=== PATIENT | male | born 1955 | race African-American/Black ===

== ENCOUNTER 2018-01-30 11:39 | Inpatient (IN) | payer OTHER ==
[2018-01-30 15:20] VITALS: BMI 36.6
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
[2018-01-30] MEDS ORDERED: IBUPROFEN 400 MG TABLET (FP) PO PRN (16:18)
[2018-01-30] MEDS ORDERED: ACETAMINOPHEN 325 MG TABLET (FP) PO PRN (16:18)
[2018-01-30] MEDS ORDERED: P-EPHED 60MG/TRIPROLIDI 2.5MG TABLET PO PRN (16:18)
[2018-01-30] MEDS ORDERED: MAGNESIUM HYDROX 2400MG/30ML ORAL SUSPENSION 30 ML CUP PO PRN (16:18)
[2018-01-30] MEDS ORDERED: LOPERAMIDE HCL 2 MG CAPSULE PO PRN (16:18)
[2018-01-30] MEDS ORDERED: guaiFENesin/D-METHORPHAN HB 10 ML UNIT-DOSE CUPS PO PRN (16:18)
[2018-01-30] MEDS ORDERED: MAG HYDROX/AL HYDROX/SIMETH 30 ML UNIT-DOSE CUP PO PRN (16:18)
[2018-01-30] MEDS ORDERED: MENTHOL/PHENOL 1 EACH UD MM PRN (16:18)
[2018-01-30] MEDS ORDERED: NICOTINE POLACRILEX 2 MG GUM BC PRN (16:18)
[2018-01-30] MEDS ORDERED: MAGNESIUM CITRATE 300 ML BOTTLE PO PRN (16:18)
[2018-01-30] MEDS: chlordiazePOXIDE HCL 25 MG CAPSULE PO PRN (18:46)
[2018-01-30] MEDS: chlordiazePOXIDE HCL 25 MG CAPSULE PO SCH ×2 (18:54→23:02)
[2018-01-30 21:14] LABS: URINE APPEARANCE CLEAR; URINE BILIRUBIN NEGATIVE (NEGATIVE); URINE BLOOD NEGATIVE (NEGATIVE); URINE COLOR YELLOW; URINE GLUCOSE (UA) NEGATIVE (NEGATIVE); URINE KETONE NEGATIVE (NEGATIVE); URINE LEUK ESTERASE NEGATIVE (NEGATIVE); URINE NITRITE NEGATIVE (NEGATIVE); URINE PROTEIN NEGATIVE (NEGATIVE)
[2018-01-30] MEDS: THIAMINE HCL 100 MG TABLET (FP) PO SCH (23:04)
[2018-01-30] MEDS: MELATONIN 5 MG TABLETS PO SCH (23:05)
[2018-01-31] MEDS: chlordiazePOXIDE HCL 25 MG CAPSULE PO SCH ×4 (05:44→23:07)
[2018-01-31] MEDS ORDERED: METHADONE HCL 10 MG TABLET PO SCH (07:30)
[2018-01-31] MEDS ORDERED: METHADONE HCL 40 MG DISPERSABLE TABLET ONE (08:15)
[2018-01-31] MEDS ORDERED: METHADONE HCL 10 MG TABLET ONE (08:16)
[2018-01-31] MEDS: METHADONE 80 MG, METHADONE 10 MG PO SCH (08:19)
--- NOTE | 2018-01-31 08:52 | CONSULT ---
[facility] Psychiatric Consult - Data Date of interview: 01/31/18 Admission source: [facility] Identifying data: This is 62 years old male, , father of two, living with family, working of the [employer] by [employer], with a long history of Alcohol and Cocaine dependence is seeking admission to detox. Urine Drug Screen Results: THC- Marijuana, MADAN-Cocaine, OPI-Opiates, BAR-Barbiturates, MTD-Methadone. Patient reports no psychiatric hospitalization history Substance Abuse History: - Smoking Cessation. Smoking history: Current every day smoker. Have you smoked in the past 12 months: Yes. Aproximately how many cigarettes per day: 2. Hx Chewing Tobacco Use: Yes. Initiated information on smoking cessation: Yes. 'Breaking Loose' booklet given: 02/06/18. - Substance & Tx. History. Hx Alcohol Use: Yes. Hx Substance Use: Yes. Substance Use Type : Cocaine, Marijuana, Opiates. Hx Substance Use Treatment: Yes ([facility] 15 YEARS AGO). - Substances Abused. Alcohol. Route: Oral. Frequency: Daily. Amount used: VODKA - 5 PINTS, BEER - 6 (12 OZ. ). Age of first use: 19. Date of Last Use: 01/29/18. Cocaine. Route: Inhalation. Frequency: Daily. Amount used: 3 BAGS. Age of first use: 21. Date of Last Use: 01/29/18. Urine Drug Screen Results: THC-Marijuana, MADAN-Cocaine, OPI-Opiates, BAR- Barbiturates, MTD-Methadone Medical History: Patient reports history of HTN. hypercholesterolemia, seizures , BPH and Depression. He denies suicidal history. He is on methadone 80mg tablet daily at [facility]. Psychiatric History: Denies past psychiastric history Physical/Sexual Abuse/Trauma History: Denies Additional Comment: Urine Drug Screen Results: THC-Marijuana, MADAN-Cocaine, OPI- Opiates, BAR-Barbiturates, MTD-Methadone. Observation. Detox Unit Care Protocol Mental Status Exam - Mental Status Exam Alert and Oriented to: Time, Place, Person Cognitive Function: Fair Patient Appearance: Well Groomed Mood: Euthymic Affect: Mood Congruent Patient Behavior: Cooperative Speech Pattern: Appropriate, Artificially Ventilated Thought Process: Goal Oriented Thought Disorder: Being Controlled Hallucinations: Denies Suicidal Ideation: Denies Homicidal Ideation: Denies Insight/Judgement: Fair Sleep: Difficulty falling asleep Appetite: Weight gain Muscle strength/Tone: Normal Gait/Station: Normal Additional Comments: Observation. Detox Unit Care Protocol Psychiatric Findings - Problem List ([place] 1, 2,3) (1) Drug-induced mood disorder Current Visit: Yes Status: Suspected (2) Cannabis abuse Current Visit: Yes Status: Acute (3) Alcohol dependence with uncomplicated withdrawal Current Visit: Yes Status: Chronic (4) Cocaine dependence, uncomplicated Current Visit: Yes Status: Chronic (5) Methadone maintenance therapy patient Current Visit: Yes Status: Chronic (6) Nicotine dependence Current Visit: Yes Status: Chronic Qualifiers: Nicotine product type: cigarettes Substance use status: uncomplicated Qualified Code(s): F17.210 - Nicotine dependence, cigarettes, uncomplicated - Initial Treatment Plan Initial Treatment Plan: Observation. Detox Unit Care Protocol
[2018-01-31 10:08] LABS: HEMATOCRIT 36.4 % (35.4-49); HEMOGLOBIN 11.9 GM/dL (11.7-16.9); MCH 28.3 pg (25.7-33.7); MCHC 32.6 g/dl (32.0-35.9); MEAN CELL VOLUME 86.8 fl (80-96); MEAN PLT VOLUME 7.9 fl (7.5-11.1); PLATELET COUNT 207 K/MM3 (134-434); RBC 4.19 M/mm3 (4.00-5.60); RDW 14.2 % (11.9-15.9); WHITE BLOOD COUNT 3.8 K/mm3 (4.0-10.0)
[2018-01-31 10:29] LABS: CHLORIDE 102 mmol/L (98-107); POTASSIUM 3.8 mmol/L (3.5-5.1); SODIUM 141 mmol/L (136-145)
[2018-01-31 10:37] LABS: ALBUMIN 3.2 g/dl (3.4-5.0); ALK PHOS 109 U/L (45-117); ANION GAP 10 (8-16); BILIRUBIN,TOTAL 0.5 mg/dL (0.2-1.0); BLOOD UREA NITROGEN 17 mg/dL (7-18); CALCIUM 9.1 mg/dL (8.5-10.1); CO2 29 mmol/L (21-32); CREATININE 0.9 mg/dL (0.7-1.3); GLUCOSE,RANDOM 117 mg/dL (74-106); SGOT/AST 12 U/L (15-37); SGPT/ALT 19 U/L (12-78); TOT PROT 6.3 g/dl (6.4-8.2)
[2018-01-31] MEDS: PRENATAL VITAMINS W/ FOLIC ACID TABLET (FP) PO SCH (10:52)
[2018-01-31] MEDS: chlordiazePOXIDE HCL 25 MG CAPSULE PO PRN (10:52)
[2018-01-31] MEDS: NICOTINE 14 MG/24 HOURS TOPICAL PATCH TD SCH (10:53)
--- NOTE | 2018-01-31 10:59 | PN ---
S CIWA - CIWA Score Nausea/Vomitin Muscle Tremors: 3 Anxiety: 3 Agitation: 3 Paroxysmal Sweats: 1-Minimal Palms Moist Orientation: 0-Oriented Tacttile Disturbances: 1-Very Mild Itch/Numbness Auditory Disturbances: 1-Very Mild Visual Disturbances: 0-None Headache: 2-Mild CIWA-Ar Total Score: 17 BHS Progress Note (SOAP) Subjective: ALERT,IRRITABLE,ANXIOUS,INTERRUPTED SLEEP,TREMOR,PAIN IN THE BODY Objective: 01/31/18 10:56 Vital Signs Temperature 97.2 F L 01/31/18 10:00 Pulse Rate 80 01/31/18 10:00 Respiratory Rate 18 01/31/18 10:00 Blood Pressure 125/74 01/31/18 10:00 O2 Sat by Pulse Oximetry (%) EKG NSR,LVH PROLONG QT 402/430 01/31/18 10:57 NO CHEST PAIN,NO SOB,NO DIZZINESS Laboratory Last Values WBC 3.8 K/mm3 (4.0-10.0) L 01/31/18 07:30 RBC 4.19 M/mm3 (4.00-5.60) 01/31/18 07:30 Hgb 11.9 GM/dL (11.7-16.9) 01/31/18 07:30 Hct 36.4 % (35.4-49) 01/31/18 07:30 MCV 86.8 fl (80-96) 01/31/18 07:30 MCH 28.3 pg (25.7-33.7) 01/31/18 07:30 MCHC 32.6 g/dl (32.0-35.9) 01/31/18 07:30 RDW 14.2 % (11.9-15.9) 01/31/18 07:30 Plt Count 207 K/MM3 (134-434) 01/31/18 07:30 MPV 7.9 fl (7.5-11.1) 01/31/18 07:30 Sodium 141 mmol/L (136-145) 01/31/18 07:30 Potassium 3.8 mmol/L (3.5-5.1) 01/31/18 07:30 Chloride 102 mmol/L (98-107) 01/31/18 07:30 Carbon Dioxide 29 mmol/L (21-32) 01/31/18 07:30 Anion Gap 10 (8-16) 01/31/18 07:30 BUN 17 mg/dL (7-18) 01/31/18 07:30 Creatinine 0.9 mg/dL (0.7-1.3) 01/31/18 07:30 Creat Clearance w eGFR > 60 (>60) 01/31/18 07:30 Random Glucose 117 mg/dL (74-106) H 01/31/18 07:30 Calcium 9.1 mg/dL (8.5-10.1) 01/31/18 07:30 Total Bilirubin 0.5 mg/dL (0.2-1.0) 01/31/18 07:30 AST 12 U/L (15-37) L 01/31/18 07:30 ALT 19 U/L (12-78) 01/31/18 07:30 Alkaline Phosphatase 109 U/L (45-117) 01/31/18 07:30 Total Protein 6.3 g/dl (6.4-8.2) L 01/31/18 07:30 Albumin 3.2 g/dl (3.4-5.0) L 01/31/18 07:30 Urine Color Yellow 01/30/18 20:00 Urine Appearance Clear 01/30/18 20:00 Urine pH 5.0 (5.0-8.0) 01/30/18 20:00 Ur Specific [place] 1.026 (1.001-1.035) 01/30/18 20:00 Urine Protein Negative (NEGATIVE) 01/30/18 20:00 Urine Glucose (UA) Negative (NEGATIVE) 01/30/18 20:00 Urine Ketones Negative (NEGATIVE) 01/30/18 20:00 Urine Blood Negative (NEGATIVE) 01/30/18 20:00 Urine Nitrite Negative (NEGATIVE) 01/30/18 20:00 Urine Bilirubin Negative (NEGATIVE) 01/30/18 20:00 Urine Urobilinogen 2.0 mg/dL (0.2-1.0) 01/30/18 20:00 Ur Leukocyte Esterase Negative (NEGATIVE) 01/30/18 20:00 Assessment: 01/31/18 10:58 WITHDRAWAL SYMPTOM Plan: CONTINUE DETOX,FASTING GLUCOSE IN AM INITIAL GLUCOSE IS 117
--- NOTE | 2018-01-31 14:36 | EKG ---
Test Reason : Blood Pressure : / mmHG Vent. Rate : 069 BPM Atrial Rate : 069 BPM P-R Int : 200 ms QRS Dur : 118 ms QT Int : 402 ms P-R-T Axes : 056 -37 -11 degrees QTc Int : 430 ms NORMAL SINUS RHYTHM LEFT AXIS DEVIATION LEFT VENTRICULAR HYPERTROPHY WITH QRS WIDENING ABNORMAL ECG WHEN COMPARED WITH ECG OF 30-JAN-2018 17:54, QT HAS SHORTENED Confirmed by TIM RIVERO, TIMI ([id number]) on 01/31/2018 2:35:34 PM Referred By: Confirmed By:TIMI DUMONT MD
[2018-01-31] MEDS: THIAMINE HCL 100 MG TABLET (FP) PO SCH (23:07)
[2018-01-31] MEDS: MELATONIN 5 MG TABLETS PO SCH ×2 (23:29→23:50)
[2018-02-01] MEDS ORDERED: METHADONE HCL 10 MG TABLET ONE (04:46)
[2018-02-01] MEDS ORDERED: METHADONE HCL 40 MG DISPERSABLE TABLET ONE (04:46)
[2018-02-01] MEDS: METHADONE 80 MG, METHADONE 10 MG PO SCH (06:12)
[2018-02-01] MEDS: chlordiazePOXIDE HCL 25 MG CAPSULE PO SCH ×2 (06:12→11:12)
--- NOTE | 2018-02-01 10:47 | PN ---
S CIWA - CIWA Score Nausea/Vomitin Muscle Tremors: 3 Anxiety: 3 Agitation: 3 Paroxysmal Sweats: 1-Minimal Palms Moist Orientation: 0-Oriented Tacttile Disturbances: 1-Very Mild Itch/Numbness Auditory Disturbances: 1-Very Mild Visual Disturbances: 0-None Headache: 2-Mild CIWA-Ar Total Score: 17 BHS Progress Note (SOAP) Subjective: ALERT,IRRITABLE,ANXIOUS,INTERRUPTED SLEEP,TREMOR Objective: 02/01/18 10:45 Vital Signs Temperature 98.2 F 02/01/18 09:27 Pulse Rate 74 02/01/18 09:27 Respiratory Rate 19 02/01/18 09:27 Blood Pressure 148/87 02/01/18 09:27 O2 Sat by Pulse Oximetry (%) 02/01/18 10:46 FASTING GLUCOSE 112 Assessment: 02/01/18 10:47 WITHDRAWAL SYMPTOM Plan: CONTINUE DETOX,BGM DAILY
[2018-02-01] MEDS: NICOTINE 14 MG/24 HOURS TOPICAL PATCH TD SCH (11:12)
[2018-02-01] MEDS: PRENATAL VITAMINS W/ FOLIC ACID TABLET (FP) PO SCH (11:12)
[2018-02-01] MEDS: chlordiazePOXIDE 5 MG CAPSULE PO SCH ×2 (18:03→22:28)
[2018-02-01] MEDS: THIAMINE HCL 100 MG TABLET (FP) PO SCH (22:28)
[2018-02-01] MEDS: MELATONIN 5 MG TABLETS PO SCH (22:28)
[2018-02-02] MEDS ORDERED: METHADONE HCL 40 MG DISPERSABLE TABLET ONE (03:25)
[2018-02-02] MEDS ORDERED: METHADONE HCL 10 MG TABLET ONE (03:25)
[2018-02-02] MEDS: METHADONE 80 MG, METHADONE 10 MG PO SCH (05:44)
[2018-02-02] MEDS: chlordiazePOXIDE 5 MG CAPSULE PO SCH ×2 (05:44→11:12)
[2018-02-02] MEDS: NICOTINE 14 MG/24 HOURS TOPICAL PATCH TD SCH (11:12)
[2018-02-02] MEDS: PRENATAL VITAMINS W/ FOLIC ACID TABLET (FP) PO SCH (11:12)
[2018-02-02] MEDS: chlordiazePOXIDE HCL 10 MG CAPSULE PO SCH ×2 (18:05→22:28)
--- NOTE | 2018-02-02 20:44 | PN ---
BHS Progress Note (SOAP) Subjective: Shakes sweats Objective: 02/02/18 20:43 A & O x 3 Vital Signs Temperature 97.5 F L 02/02/18 17:33 Pulse Rate 77 02/02/18 17:33 Respiratory Rate 20 02/02/18 17:33 Blood Pressure 109/68 02/02/18 17:33 O2 Sat by Pulse Oximetry (%) Assessment: 02/02/18 20:44 withdrawal sx Plan: continue detox
[2018-02-02] MEDS: THIAMINE HCL 100 MG TABLET (FP) PO SCH (22:28)
[2018-02-02] MEDS: MELATONIN 5 MG TABLETS PO SCH (22:30)
[2018-02-03] MEDS ORDERED: METHADONE HCL 40 MG DISPERSABLE TABLET ONE (04:23)
[2018-02-03] MEDS ORDERED: METHADONE HCL 10 MG TABLET ONE (04:24)
[2018-02-03] MEDS: chlordiazePOXIDE HCL 10 MG CAPSULE PO SCH (05:56)
[2018-02-03] MEDS: METHADONE 80 MG, METHADONE 10 MG PO SCH (05:56)
[2018-02-03 06:01] VITALS: BP 112/80; PULSE 73; TEMP 97.2
--- NOTE | 2018-02-03 09:19 | DS ---
[facility] Detox Discharge Summary Admission Date: 01/30/18 Discharge Date: 02/03/18 - History Present History: Alcohol Dependence Additional Comments: 62 years old male admitted for alcohol detox patient completed detox regimen tolerated well denies pain denies withdrawal sx wants to go to [facility] as aftercare - Physical Exam Results Vital Signs: Vital Signs Temperature 97.2 F L 02/03/18 06:00 Pulse Rate 73 02/03/18 06:00 Respiratory Rate 20 02/03/18 06:00 Blood Pressure 112/80 02/03/18 06:00 O2 Sat by Pulse Oximetry (%) Pertinent Admission Physical Exam Findings: withdrawal sx Vital Signs Temperature 97.2 F L 02/03/18 06:00 Pulse Rate 73 02/03/18 06:00 Respiratory Rate 20 02/03/18 06:00 Blood Pressure 112/80 02/03/18 06:00 O2 Sat by Pulse Oximetry (%) Laboratory Last Values WBC 3.8 K/mm3 (4.0-10.0) L 01/31/18 07:30 RBC 4.19 M/mm3 (4.00-5.60) 01/31/18 07:30 Hgb 11.9 GM/dL (11.7-16.9) 01/31/18 07:30 Hct 36.4 % (35.4-49) 01/31/18 07:30 MCV 86.8 fl (80-96) 01/31/18 07:30 MCH 28.3 pg (25.7-33.7) 01/31/18 07:30 MCHC 32.6 g/dl (32.0-35.9) 01/31/18 07:30 RDW 14.2 % (11.9-15.9) 01/31/18 07:30 Plt Count 207 K/MM3 (134-434) 01/31/18 07:30 MPV 7.9 fl (7.5-11.1) 01/31/18 07:30 Sodium 141 mmol/L (136-145) 01/31/18 07:30 Potassium 3.8 mmol/L (3.5-5.1) 01/31/18 07:30 Chloride 102 mmol/L (98-107) 01/31/18 07:30 Carbon Dioxide 29 mmol/L (21-32) 01/31/18 07:30 Anion Gap 10 (8-16) 01/31/18 07:30 BUN 17 mg/dL (7-18) 01/31/18 07:30 Creatinine 0.9 mg/dL (0.7-1.3) 01/31/18 07:30 Creat Clearance w eGFR > 60 (>60) 01/31/18 07:30 POC Glucometer 115 UNITS (80-120) 02/03/18 05:55 Random Glucose 117 mg/dL (74-106) H 01/31/18 07:30 Fasting Glucose 112 mg/dL (70-105) H 02/01/18 07:00 Calcium 9.1 mg/dL (8.5-10.1) 01/31/18 07:30 Total Bilirubin 0.5 mg/dL (0.2-1.0) 01/31/18 07:30 AST 12 U/L (15-37) L 01/31/18 07:30 ALT 19 U/L (12-78) 01/31/18 07:30 Alkaline Phosphatase 109 U/L (45-117) 01/31/18 07:30 Total Protein 6.3 g/dl (6.4-8.2) L 01/31/18 07:30 Albumin 3.2 g/dl (3.4-5.0) L 01/31/18 07:30 Urine Color Yellow 01/30/18 20:00 Urine Appearance Clear 01/30/18 20:00 Urine pH 5.0 (5.0-8.0) 01/30/18 20:00 Ur Specific [place] 1.026 (1.001-1.035) 01/30/18 20:00 Urine Protein Negative (NEGATIVE) 01/30/18 20:00 Urine Glucose (UA) Negative (NEGATIVE) 01/30/18 20:00 Urine Ketones Negative (NEGATIVE) 01/30/18 20:00 Urine Blood Negative (NEGATIVE) 01/30/18 20:00 Urine Nitrite Negative (NEGATIVE) 01/30/18 20:00 Urine Bilirubin Negative (NEGATIVE) 01/30/18 20:00 Urine Urobilinogen 2.0 mg/dL (0.2-1.0) 01/30/18 20:00 Ur Leukocyte Esterase Negative (NEGATIVE) 01/30/18 20:00 RPR Titer Nonreactive (NONREACTIVE) 01/31/18 07:30 lab noted - Treatment Hospital Course: Detox Protocol Followed, Detoxed Safely, Responded well, Discharged Condition Good, Rehab Referral Accepted Patient has Accepted a Rehab Referral to: [facility] - Medication Discharge Medications: Ambulatory Orders Methadone [Dolophine -] 90 mg PO DAILY 02/03/18 - Diagnosis (1) Alcohol dependence with uncomplicated withdrawal Current Visit: Yes Status: Acute (2) Methadone maintenance therapy patient Current Visit: Yes Status: Chronic (3) Nicotine dependence Current Visit: Yes Status: Acute Qualifiers: Nicotine product type: cigarettes Substance use status: in withdrawal Qualified Code(s): F17.213 - Nicotine dependence, cigarettes, with withdrawal - AMA Did Patient Leave Against Medical Advice: No
== END 2018-02-03 08:40 | disposition home or self-care (01) | DRG 773 ==
LOC: YASAS 11:39 → Y6N 16:28
PROVIDERS: ADMIT Internal Medicine; ATTEND Internal Medicine
PROC: HZ2ZZZZ Detoxification Services for Substance Abuse Treatment (ICD-10-PCS; principal; 2018-01-30)
DX: F11.20 Opioid dependence, uncomplicated (principal); F10.230 Alcohol dependence with withdrawal, uncomplicated; F14.20 Cocaine dependence, uncomplicated; F12.10 Cannabis abuse, uncomplicated; F17.213 Nicotine dependence, cigarettes, with withdrawal; F32.9 Major depressive disorder, single episode, unspecified; F19.24 Other psychoactive substance dependence with psychoactive substance-induced mood disorder; I10 Essential (primary) hypertension; E78.00 Pure hypercholesterolemia, unspecified; N40.0 Benign prostatic hyperplasia without lower urinary tract symptoms; Z86.69 Personal history of other diseases of the nervous system and sense organs
CPT/HCPCS: 36415; 80053; 81003; 82947; 82962; 85027; 86593; 93005; 93010

== ENCOUNTER 2018-03-16 08:16 | Inpatient (IN) | payer OTHER ==
[2018-03-16 09:24] VITALS: BMI 36.3
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
[2018-03-16] MEDS ORDERED: P-EPHED 60MG/TRIPROLIDI 2.5MG TABLET PO PRN (10:04)
[2018-03-16] MEDS ORDERED: MENTHOL/PHENOL 1 EACH UD MM PRN (10:04)
[2018-03-16] MEDS ORDERED: IBUPROFEN 400 MG TABLET (FP) PO PRN (10:04)
[2018-03-16] MEDS ORDERED: chlordiazePOXIDE HCL 25 MG CAPSULE PO PRN (10:04)
[2018-03-16] MEDS ORDERED: guaiFENesin/D-METHORPHAN HB 10 ML UNIT-DOSE CUPS PO PRN (10:04)
[2018-03-16] MEDS ORDERED: MAGNESIUM CITRATE 300 ML BOTTLE PO PRN (10:04)
[2018-03-16] MEDS ORDERED: ACETAMINOPHEN 325 MG TABLET (FP) PO PRN (10:04)
[2018-03-16] MEDS ORDERED: LOPERAMIDE HCL 2 MG CAPSULE PO PRN (10:04)
[2018-03-16] MEDS ORDERED: MAGNESIUM HYDROX 2400MG/30ML ORAL SUSPENSION 30 ML CUP PO PRN (10:04)
[2018-03-16] MEDS ORDERED: MAG HYDROX/AL HYDROX/SIMETH 30 ML UNIT-DOSE CUP PO PRN (10:04)
[2018-03-16] MEDS ORDERED: hydrOXYzine PAMOATE 50 MG CAPSULE (FP) PO PRN (10:04)
[2018-03-16] MEDS ORDERED: chlordiazePOXIDE HCL 25 MG CAPSULE PO ONE (11:00)
[2018-03-16] MEDS: chlordiazePOXIDE HCL 25 MG CAPSULE PO SCH ×2 (18:16→22:11)
[2018-03-16] MEDS ORDERED: MELATONIN 5 MG TABLETS PO PRN (22:00)
[2018-03-16] MEDS: THIAMINE HCL 100 MG TABLET (FP) PO SCH (22:13)
[2018-03-16 22:32] LABS: URINE APPEARANCE TURBID; URINE BILIRUBIN NEGATIVE (<2.0 mg/dL); URINE COLOR YELLOW; URINE GLUCOSE (UA) NEGATIVE (NEGATIVE); URINE KETONE NEGATIVE (NEGATIVE); URINE LEUK ESTERASE NEGATIVE (NEGATIVE); URINE NITRITE NEGATIVE (NEGATIVE); URINE PROTEIN NEGATIVE (NEGATIVE)
[2018-03-17] MEDS ORDERED: METHADONE HCL 40 MG DISPERSABLE TABLET ONE (05:41)
[2018-03-17] MEDS ORDERED: METHADONE HCL 10 MG TABLET ONE (05:41)
[2018-03-17] MEDS ORDERED: METHADONE 40 MG, METHADONE 20 MG PO ONE (06:00)
[2018-03-17] MEDS: chlordiazePOXIDE HCL 25 MG CAPSULE PO SCH ×4 (06:11→22:11)
[2018-03-17 09:56] LABS: ALBUMIN 3.5 g/dl (3.4-5.0); ANION GAP 5 (8-16); BLOOD UREA NITROGEN 19 mg/dL (7-18); CALCIUM 8.6 mg/dL (8.5-10.1); CHLORIDE 104 mmol/L (98-107); CO2 31 mmol/L (21-32); GLUCOSE,RANDOM 83 mg/dL (74-106); POTASSIUM 4.2 mmol/L (3.5-5.1); SGOT/AST 15 U/L (15-37); SGPT/ALT 19 U/L (12-78); SODIUM 140 mmol/L (136-145)
[2018-03-17 09:58] LABS: ALK PHOS 113 U/L (45-117); BILIRUBIN,TOTAL 0.2 mg/dL (0.2-1.0); CREATININE 0.9 mg/dL (0.7-1.3); TOT PROT 6.8 g/dl (6.4-8.2)
[2018-03-17] MEDS ORDERED: METHADONE HCL 40 MG DISPERSABLE TABLET PO ONE ×2 (10:00)
[2018-03-17 10:03] LABS: HEMATOCRIT 38.7 % (35.4-49); HEMOGLOBIN 12.7 GM/dL (11.7-16.9); MCHC 32.8 g/dl (32.0-35.9); MEAN CELL VOLUME 85.3 fl (80-96); MEAN PLT VOLUME 7.9 fl (7.5-11.1); PLATELET COUNT 244 K/MM3 (134-434); RBC 4.54 M/mm3 (4.00-5.60); RDW 14.3 % (11.9-15.9); WHITE BLOOD COUNT 4.2 K/mm3 (4.0-10.0)
[2018-03-17] MEDS: PRENATAL VITAMINS W/ FOLIC ACID TABLET (FP) PO SCH (10:34)
--- NOTE | 2018-03-17 11:27 | PN ---
S CIWA - CIWA Score Nausea/Vomitin-No Nausea/No Vomiting Muscle Tremors: 4-Moderate,w/Arms Extend Anxiety: 4-Mod. Anxious/Guarded Agitation: 4-Moderately Restless Paroxysmal Sweats: No Perspiration Orientation: 0-Oriented Tacttile Disturbances: 0-None Auditory Disturbances: 0-None Visual Disturbances: 0-None Headache: 0-None Present CIWA-Ar Total Score: 12 BHS Progress Note (SOAP) Subjective: ANXIETY,INTERMITTENT SLEEP Objective: 03/17/18 11:26 Vital Signs Temperature 98.8 F 03/17/18 09:20 Pulse Rate 60 03/17/18 09:20 Respiratory Rate 18 03/17/18 09:20 Blood Pressure 150/78 03/17/18 09:20 O2 Sat by Pulse Oximetry (%) Laboratory Tests 03/16/18 03/17/18 03/17/18 22:00 07:15 07:15 WBC 4.2 RBC 4.54 Hgb 12.7 Hct 38.7 MCV 85.3 MCH 28.0 MCHC 32.8 RDW 14.3 Plt Count 244 MPV 7.9 Sodium 140 Potassium 4.2 Chloride 104 Carbon Dioxide 31 Anion Gap 5 L BUN 19 H Creatinine 0.9 Creat Clearance w eGFR > 60 Random Glucose 83 D Calcium 8.6 Total Bilirubin 0.2 D AST 15 D ALT 19 Alkaline Phosphatase 113 Total Protein 6.8 Albumin 3.5 Urine Color Yellow Urine Appearance Turbid Urine pH 5.0 Ur Specific [place] 1.025 Urine Protein Negative Urine Glucose (UA) Negative Urine Ketones Negative Urine Blood Negative Urine Nitrite Negative Urine Bilirubin Negative Urine Urobilinogen 2.0 Ur Leukocyte Esterase Negative RPR Titer 03/17/18 07:15 WBC RBC Hgb Hct MCV MCH MCHC RDW Plt Count MPV Sodium Potassium Chloride Carbon Dioxide Anion Gap BUN Creatinine Creat Clearance w eGFR Random Glucose Calcium Total Bilirubin AST ALT Alkaline Phosphatase Total Protein Albumin Urine Color Urine Appearance Urine pH Ur Specific [place] Urine Protein Urine Glucose (UA) Urine Ketones Urine Blood Urine Nitrite Urine Bilirubin Urine Urobilinogen Ur Leukocyte Esterase RPR Titer Nonreactive Assessment: 03/17/18 11:26 WITHDRAWAL SX Plan: CONTINUE DETOX PROTOCOL
--- NOTE | 2018-03-17 14:35 | EKG ---
Test Reason : Blood Pressure : / mmHG Vent. Rate : 073 BPM Atrial Rate : 073 BPM P-R Int : 194 ms QRS Dur : 116 ms QT Int : 446 ms P-R-T Axes : 061 -29 009 degrees QTc Int : 491 ms NORMAL SINUS RHYTHM PROLONGED QT ABNORMAL ECG WHEN COMPARED WITH ECG OF 31-JAN-2018 08:46, QT HAS LENGTHENED Confirmed by MD Memo, Grant ([id number]) on 03/17/2018 2:35:37 PM Referred By: Rafat Hernandez Confirmed By:Grant Hampton MD
[2018-03-17] MEDS: THIAMINE HCL 100 MG TABLET (FP) PO SCH (22:12)
[2018-03-18] MEDS: chlordiazePOXIDE HCL 25 MG CAPSULE PO SCH ×2 (06:54→10:29)
[2018-03-18] MEDS ORDERED: METHADONE 40 MG, METHADONE 20 MG PO SCH (07:00)
[2018-03-18] MEDS ORDERED: METHADONE HCL 10 MG TABLET ONE (07:39)
[2018-03-18] MEDS ORDERED: METHADONE HCL 40 MG DISPERSABLE TABLET ONE (07:40)
[2018-03-18] MEDS: PRENATAL VITAMINS W/ FOLIC ACID TABLET (FP) PO SCH (10:29)
[2018-03-18 13:16] VITALS: BP 104/70; PULSE 75; TEMP 96.3
--- NOTE | 2018-03-18 13:46 | PN ---
BHS Progress Note (SOAP) Subjective: Requesting to leave States "i am fine" Objective: 03/18/18 13:54 A & O x 3 Anxious Irritable Vital Signs Temperature 96.3 F L 03/18/18 13:15 Pulse Rate 75 03/18/18 13:15 Respiratory Rate 18 03/18/18 13:15 Blood Pressure 104/70 03/18/18 13:15 O2 Sat by Pulse Oximetry (%) Assessment: 03/18/18 13:58 Withdrawal sx Anxiety Plan: Continue detox
--- NOTE | 2018-03-18 14:05 | DS ---
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 VSS, A & O x 3, gait steady Will sign out against medical advice. Educated to call 911 or come back if adverse sx Pertinent Past History: BPH HTN Hx of seizures - Physical Exam Results Vital Signs: Vital Signs Temperature 96.3 F L 03/18/18 13:15 Pulse Rate 75 03/18/18 13:15 Respiratory Rate 18 03/18/18 13:15 Blood Pressure 104/70 03/18/18 13:15 O2 Sat by Pulse Oximetry (%) Pertinent Admission Physical Exam Findings: withdrawal sx - Medication Discharge Medications: Ambulatory Orders Methadone [Dolophine -] 60 mg PO DAILY 02/03/18 - Diagnosis (1) Sedative, hypnotic or anxiolytic dependence, uncomplicated Status: Acute (2) Alcohol dependence with uncomplicated withdrawal Status: Acute (3) Cannabis abuse Status: Chronic (4) Cocaine dependence, uncomplicated Status: Chronic (5) Nicotine dependence Status: Acute Qualifiers: Nicotine product type: cigarettes Substance use status: in withdrawal Qualified Code(s): F17.213 - Nicotine dependence, cigarettes, with withdrawal (6) BPH (benign prostatic hyperplasia) Status: Chronic Qualifiers: Lower urinary tract symptom detail: unspecified (7) HTN (hypertension) Status: Chronic Qualifiers: Hypertension type: essential hypertension Qualified Code(s): I10 - Essential (primary) hypertension (8) Hypercholesteremia Status: Chronic (9) Methadone maintenance therapy patient Status: Chronic (10) Obesity (BMI 30-39.9) Status: Chronic (11) Drug-induced mood disorder Status: Suspected (12) History of seizure Status: Suspected - AMA Did Patient Leave Against Medical Advice: Yes
[2018-03-18] MEDS ORDERED: chlordiazePOXIDE 5 MG CAPSULE PO SCH (17:00)
[2018-03-19] MEDS ORDERED: METHADONE HCL 10 MG TABLET PO SCH (06:00)
[2018-03-19] MEDS ORDERED: chlordiazePOXIDE HCL 10 MG CAPSULE PO SCH (17:00)
== END 2018-03-18 13:41 | disposition left against medical advice (07) | DRG 770 ==
LOC: YASAS 08:16 → Y3N 10:41
PROVIDERS: ADMIT Internal Medicine; ATTEND Internal Medicine
PROC: HZ2ZZZZ Detoxification Services for Substance Abuse Treatment (ICD-10-PCS; principal; 2018-03-16)
DX: F11.20 Opioid dependence, uncomplicated (principal); F13.230 Sedative, hypnotic or anxiolytic dependence with withdrawal, uncomplicated; F10.230 Alcohol dependence with withdrawal, uncomplicated; F14.20 Cocaine dependence, uncomplicated; F17.213 Nicotine dependence, cigarettes, with withdrawal; F19.24 Other psychoactive substance dependence with psychoactive substance-induced mood disorder; I10 Essential (primary) hypertension; E78.00 Pure hypercholesterolemia, unspecified; N40.0 Benign prostatic hyperplasia without lower urinary tract symptoms; E66.9 Obesity, unspecified; Z68.36 Body mass index [BMI] 36.0-36.9, adult; Z86.69 Personal history of other diseases of the nervous system and sense organs
CPT/HCPCS: 36415; 80053; 81003; 85027; 86593; 93005; 93010

== ENCOUNTER 2018-04-13 11:18 | Inpatient (IN) | payer OTHER ==
[2018-04-13 16:48] VITALS: BMI 35.2
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
[2018-04-13] MEDS ORDERED: MAGNESIUM HYDROX 2400MG/30ML ORAL SUSPENSION 30 ML CUP PO PRN (18:11)
[2018-04-13] MEDS ORDERED: hydrOXYzine PAMOATE 50 MG CAPSULE (FP) PO PRN (18:11)
[2018-04-13] MEDS ORDERED: NICOTINE POLACRILEX 2 MG GUM BC PRN (18:11)
[2018-04-13] MEDS ORDERED: MENTHOL/PHENOL 1 EACH UD MM PRN (18:11)
[2018-04-13] MEDS ORDERED: LOPERAMIDE HCL 2 MG CAPSULE PO PRN (18:11)
[2018-04-13] MEDS ORDERED: MAGNESIUM CITRATE 300 ML BOTTLE PO PRN (18:11)
[2018-04-13] MEDS ORDERED: IBUPROFEN 400 MG TABLET (FP) PO PRN (18:11)
[2018-04-13] MEDS ORDERED: P-EPHED 60MG/TRIPROLIDI 2.5MG TABLET PO PRN (18:11)
[2018-04-13] MEDS ORDERED: chlordiazePOXIDE HCL 25 MG CAPSULE PO PRN (18:11)
[2018-04-13] MEDS ORDERED: guaiFENesin/D-METHORPHAN HB 10 ML UNIT-DOSE CUPS PO PRN (18:11)
[2018-04-13] MEDS ORDERED: ACETAMINOPHEN 325 MG TABLET (FP) PO PRN (18:11)
[2018-04-13] MEDS ORDERED: MAG HYDROX/AL HYDROX/SIMETH 30 ML UNIT-DOSE CUP PO PRN (18:11)
[2018-04-13] MEDS ORDERED: chlordiazePOXIDE HCL 25 MG CAPSULE PO ONE (19:00)
[2018-04-13] MEDS ORDERED: MELATONIN 5 MG TABLETS PO PRN (22:00)
[2018-04-13] MEDS: THIAMINE HCL 100 MG TABLET (FP) PO SCH ×2 (22:09→22:10)
[2018-04-13] MEDS: chlordiazePOXIDE HCL 25 MG CAPSULE PO SCH (22:09)
[2018-04-14] MEDS ORDERED: METHADONE HCL 10 MG TABLET PO ONE (06:00)
[2018-04-14] MEDS: chlordiazePOXIDE HCL 25 MG CAPSULE PO SCH ×4 (07:27→22:06)
[2018-04-14] MEDS: PRENATAL VITAMINS W/ FOLIC ACID TABLET (FP) PO SCH (10:02)
[2018-04-14] MEDS: NICOTINE 14 MG/24 HOURS TOPICAL PATCH TD SCH (10:02)
[2018-04-14 10:59] LABS: HEMATOCRIT 36.6 % (35.4-49); HEMOGLOBIN 11.8 GM/dL (11.7-16.9); MCH 27.6 pg (25.7-33.7); MCHC 32.3 g/dl (32.0-35.9); MEAN CELL VOLUME 85.4 fl (80-96); MEAN PLT VOLUME 8.1 fl (7.5-11.1); PLATELET COUNT 195 K/MM3 (134-434); RBC 4.29 M/mm3 (4.00-5.60); RDW 14.9 % (11.9-15.9); WHITE BLOOD COUNT 3.5 K/mm3 (4.0-10.0)
[2018-04-14 11:05] LABS: URINE APPEARANCE TURBID; URINE BILIRUBIN NEGATIVE (<2.0 mg/dL); URINE BLOOD NEGATIVE (NEGATIVE); URINE COLOR YELLOW; URINE GLUCOSE (UA) NEGATIVE (NEGATIVE); URINE KETONE NEGATIVE (NEGATIVE); URINE LEUK ESTERASE NEGATIVE (NEGATIVE); URINE NITRITE NEGATIVE (NEGATIVE); URINE PROTEIN NEGATIVE (NEGATIVE); URINE UROBILINOGEN NEGATIVE mg/dL (0.2-1.0)
[2018-04-14 11:05] LABS: CALCIUM 8.4 mg/dL (8.5-10.1); CHLORIDE 103 mmol/L (98-107); POTASSIUM 3.8 mmol/L (3.5-5.1); SODIUM 142 mmol/L (136-145)
[2018-04-14 11:13] LABS: ALBUMIN 3.4 g/dl (3.4-5.0); ALK PHOS 103 U/L (45-117); ANION GAP 6 (8-16); BILIRUBIN,TOTAL 0.3 mg/dL (0.2-1.0); BLOOD UREA NITROGEN 18 mg/dL (7-18); CO2 33 mmol/L (21-32); GLUCOSE,RANDOM 96 mg/dL (74-106); SGOT/AST 12 U/L (15-37); SGPT/ALT 20 U/L (12-78); TOT PROT 6.4 g/dl (6.4-8.2)
--- NOTE | 2018-04-14 13:05 | PN ---
S CIWA - CIWA Score Nausea/Vomitin-Mild Nausea/No Vomiting Muscle Tremors: 4-Moderate,w/Arms Extend Anxiety: 3 Agitation: 3 Paroxysmal Sweats: 1-Minimal Palms Moist Orientation: 0-Oriented Tacttile Disturbances: 0-None Auditory Disturbances: 0-None Visual Disturbances: 0-None Headache: 0-None Present CIWA-Ar Total Score: 12 BHS Progress Note (SOAP) Subjective: sweat tremor mild gi distress slept most of the night Objective: 04/14/18 13:02 Vital Signs Temperature 97.9 F 04/14/18 09:15 Pulse Rate 74 04/14/18 09:15 Respiratory Rate 16 04/14/18 09:15 Blood Pressure 111/62 04/14/18 09:15 O2 Sat by Pulse Oximetry (%) Laboratory Last Values WBC 3.5 K/mm3 (4.0-10.0) L 04/14/18 07:40 RBC 4.29 M/mm3 (4.00-5.60) 04/14/18 07:40 Hgb 11.8 GM/dL (11.7-16.9) 04/14/18 07:40 Hct 36.6 % (35.4-49) 04/14/18 07:40 MCV 85.4 fl (80-96) 04/14/18 07:40 MCH 27.6 pg (25.7-33.7) 04/14/18 07:40 MCHC 32.3 g/dl (32.0-35.9) 04/14/18 07:40 RDW 14.9 % (11.9-15.9) 04/14/18 07:40 Plt Count 195 K/MM3 (134-434) D 04/14/18 07:40 MPV 8.1 fl (7.5-11.1) 04/14/18 07:40 Sodium 142 mmol/L (136-145) 04/14/18 07:40 Potassium 3.8 mmol/L (3.5-5.1) 04/14/18 07:40 Chloride 103 mmol/L (98-107) 04/14/18 07:40 Carbon Dioxide 33 mmol/L (21-32) H 04/14/18 07:40 Anion Gap 6 (8-16) L 04/14/18 07:40 BUN 18 mg/dL (7-18) 04/14/18 07:40 Creatinine 1.0 mg/dL (0.7-1.3) 04/14/18 07:40 Creat Clearance w eGFR > 60 (>60) 04/14/18 07:40 Random Glucose 96 mg/dL (74-106) 04/14/18 07:40 Calcium 8.4 mg/dL (8.5-10.1) L 04/14/18 07:40 Total Bilirubin 0.3 mg/dL (0.2-1.0) D 04/14/18 07:40 AST 12 U/L (15-37) L 04/14/18 07:40 ALT 20 U/L (12-78) 04/14/18 07:40 Alkaline Phosphatase 103 U/L (45-117) 04/14/18 07:40 Total Protein 6.4 g/dl (6.4-8.2) 04/14/18 07:40 Albumin 3.4 g/dl (3.4-5.0) 04/14/18 07:40 Urine Color Yellow 04/14/18 08:15 Urine Appearance Turbid 04/14/18 08:15 Urine pH 5.0 (5.0-8.0) 04/14/18 08:15 Ur Specific [place] 1.029 (1.001-1.035) 04/14/18 08:15 Urine Protein Negative (NEGATIVE) 04/14/18 08:15 Urine Glucose (UA) Negative (NEGATIVE) 04/14/18 08:15 Urine Ketones Negative (NEGATIVE) 04/14/18 08:15 Urine Blood Negative (NEGATIVE) 04/14/18 08:15 Urine Nitrite Negative (NEGATIVE) 04/14/18 08:15 Urine Bilirubin Negative (<2.0 mg/dL) 04/14/18 08:15 Urine Urobilinogen Negative mg/dL (0.2-1.0) 04/14/18 08:15 Ur Leukocyte Esterase Negative (NEGATIVE) 04/14/18 08:15 RPR Titer Nonreactive (NONREACTIVE) 04/14/18 07:40 lab noted Assessment: 04/14/18 13:03 withdrawal sx Plan: continue detox
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
[2018-04-14] MEDS: THIAMINE HCL 100 MG TABLET (FP) PO SCH (22:06)
--- NOTE | 2018-04-14 22:41 | EKG ---
Test Reason : Blood Pressure : / mmHG Vent. Rate : 076 BPM Atrial Rate : 076 BPM P-R Int : 162 ms QRS Dur : 108 ms QT Int : 430 ms P-R-T Axes : 060 -20 025 degrees QTc Int : 483 ms NORMAL SINUS RHYTHM PROLONGED QT ABNORMAL ECG WHEN COMPARED WITH ECG OF 16-MAR-2018 11:39, NO SIGNIFICANT CHANGE WAS FOUND Confirmed by SD HINOJOSA MD ([id number]) on 04/14/2018 10:41:48 PM Referred By: Confirmed By:SD HINOJOSA MD
[2018-04-15] MEDS: chlordiazePOXIDE HCL 25 MG CAPSULE PO SCH ×3 (07:58→17:54)
[2018-04-15] MEDS ORDERED: METHADONE HCL 40 MG DISPERSABLE TABLET ONE (08:58)
[2018-04-15] MEDS ORDERED: METHADONE HCL 10 MG TABLET ONE (08:58)
[2018-04-15] MEDS ORDERED: METHADONE 40 MG, METHADONE 20 MG PO ONE (10:00)
[2018-04-15] MEDS ORDERED: METHADONE HCL 40 MG DISPERSABLE TABLET PO ONE (10:00)
--- NOTE | 2018-04-15 11:08 | PN ---
S CIWA - CIWA Score Nausea/Vomitin-Mild Nausea/No Vomiting Muscle Tremors: 4-Moderate,w/Arms Extend Anxiety: 3 Agitation: 2 Paroxysmal Sweats: 1-Minimal Palms Moist Orientation: 0-Oriented Tacttile Disturbances: 0-None Auditory Disturbances: 0-None Visual Disturbances: 0-None Headache: 0-None Present CIWA-Ar Total Score: 11 BHS Progress Note (SOAP) Subjective: sweat tremor anxiety restlessness lack of interest to discuss aftercare Objective: 04/15/18 11:09 Vital Signs Temperature 99.1 F 04/15/18 09:43 Pulse Rate 68 04/15/18 09:43 Respiratory Rate 16 04/15/18 09:43 Blood Pressure 113/75 04/15/18 09:43 O2 Sat by Pulse Oximetry (%) Laboratory Last Values WBC 3.5 K/mm3 (4.0-10.0) L 04/14/18 07:40 RBC 4.29 M/mm3 (4.00-5.60) 04/14/18 07:40 Hgb 11.8 GM/dL (11.7-16.9) 04/14/18 07:40 Hct 36.6 % (35.4-49) 04/14/18 07:40 MCV 85.4 fl (80-96) 04/14/18 07:40 MCH 27.6 pg (25.7-33.7) 04/14/18 07:40 MCHC 32.3 g/dl (32.0-35.9) 04/14/18 07:40 RDW 14.9 % (11.9-15.9) 04/14/18 07:40 Plt Count 195 K/MM3 (134-434) D 04/14/18 07:40 MPV 8.1 fl (7.5-11.1) 04/14/18 07:40 Sodium 142 mmol/L (136-145) 04/14/18 07:40 Potassium 3.8 mmol/L (3.5-5.1) 04/14/18 07:40 Chloride 103 mmol/L (98-107) 04/14/18 07:40 Carbon Dioxide 33 mmol/L (21-32) H 04/14/18 07:40 Anion Gap 6 (8-16) L 04/14/18 07:40 BUN 18 mg/dL (7-18) 04/14/18 07:40 Creatinine 1.0 mg/dL (0.7-1.3) 04/14/18 07:40 Creat Clearance w eGFR > 60 (>60) 04/14/18 07:40 Random Glucose 96 mg/dL (74-106) 04/14/18 07:40 Calcium 8.4 mg/dL (8.5-10.1) L 04/14/18 07:40 Total Bilirubin 0.3 mg/dL (0.2-1.0) D 04/14/18 07:40 AST 12 U/L (15-37) L 04/14/18 07:40 ALT 20 U/L (12-78) 04/14/18 07:40 Alkaline Phosphatase 103 U/L (45-117) 04/14/18 07:40 Total Protein 6.4 g/dl (6.4-8.2) 04/14/18 07:40 Albumin 3.4 g/dl (3.4-5.0) 04/14/18 07:40 Urine Color Yellow 04/14/18 08:15 Urine Appearance Turbid 04/14/18 08:15 Urine pH 5.0 (5.0-8.0) 04/14/18 08:15 Ur Specific [place] 1.029 (1.001-1.035) 04/14/18 08:15 Urine Protein Negative (NEGATIVE) 04/14/18 08:15 Urine Glucose (UA) Negative (NEGATIVE) 04/14/18 08:15 Urine Ketones Negative (NEGATIVE) 04/14/18 08:15 Urine Blood Negative (NEGATIVE) 04/14/18 08:15 Urine Nitrite Negative (NEGATIVE) 04/14/18 08:15 Urine Bilirubin Negative (<2.0 mg/dL) 04/14/18 08:15 Urine Urobilinogen Negative mg/dL (0.2-1.0) 04/14/18 08:15 Ur Leukocyte Esterase Negative (NEGATIVE) 04/14/18 08:15 RPR Titer Nonreactive (NONREACTIVE) 04/14/18 07:40 lab noted Assessment: 04/15/18 11:10 alcohol withdrawal sx Plan: continue detox
[2018-04-15] MEDS: NICOTINE 14 MG/24 HOURS TOPICAL PATCH TD SCH (11:16)
[2018-04-15] MEDS: PRENATAL VITAMINS W/ FOLIC ACID TABLET (FP) PO SCH (11:16)
[2018-04-15] MEDS: chlordiazePOXIDE 5 MG CAPSULE PO SCH (22:25)
[2018-04-15] MEDS: THIAMINE HCL 100 MG TABLET (FP) PO SCH (22:27)
[2018-04-16] MEDS ORDERED: METHADONE HCL 40 MG DISPERSABLE TABLET ONE (05:01)
[2018-04-16] MEDS ORDERED: METHADONE HCL 10 MG TABLET ONE (05:02)
[2018-04-16] MEDS ORDERED: METHADONE HCL 10 MG TABLET PO SCH (06:00)
[2018-04-16] MEDS ORDERED: METHADONE 40 MG, METHADONE 20 MG PO SCH (06:00)
[2018-04-16] MEDS: chlordiazePOXIDE 5 MG CAPSULE PO SCH ×2 (06:46→10:22)
[2018-04-16] MEDS: NICOTINE 14 MG/24 HOURS TOPICAL PATCH TD SCH (10:22)
[2018-04-16] MEDS: PRENATAL VITAMINS W/ FOLIC ACID TABLET (FP) PO SCH (10:24)
--- NOTE | 2018-04-16 12:02 | PN ---
BHS Progress Note (SOAP) Subjective: feeling better no tremor less sweat social with peers in day room discuss aftercare Objective: 04/16/18 12:01 Vital Signs Temperature 97.7 F 04/16/18 09:12 Pulse Rate 75 04/16/18 09:12 Respiratory Rate 18 04/16/18 09:12 Blood Pressure 113/54 04/16/18 09:12 O2 Sat by Pulse Oximetry (%) Laboratory Last Values WBC 3.5 K/mm3 (4.0-10.0) L 04/14/18 07:40 RBC 4.29 M/mm3 (4.00-5.60) 04/14/18 07:40 Hgb 11.8 GM/dL (11.7-16.9) 04/14/18 07:40 Hct 36.6 % (35.4-49) 04/14/18 07:40 MCV 85.4 fl (80-96) 04/14/18 07:40 MCH 27.6 pg (25.7-33.7) 04/14/18 07:40 MCHC 32.3 g/dl (32.0-35.9) 04/14/18 07:40 RDW 14.9 % (11.9-15.9) 04/14/18 07:40 Plt Count 195 K/MM3 (134-434) D 04/14/18 07:40 MPV 8.1 fl (7.5-11.1) 04/14/18 07:40 Sodium 142 mmol/L (136-145) 04/14/18 07:40 Potassium 3.8 mmol/L (3.5-5.1) 04/14/18 07:40 Chloride 103 mmol/L (98-107) 04/14/18 07:40 Carbon Dioxide 33 mmol/L (21-32) H 04/14/18 07:40 Anion Gap 6 (8-16) L 04/14/18 07:40 BUN 18 mg/dL (7-18) 04/14/18 07:40 Creatinine 1.0 mg/dL (0.7-1.3) 04/14/18 07:40 Creat Clearance w eGFR > 60 (>60) 04/14/18 07:40 Random Glucose 96 mg/dL (74-106) 04/14/18 07:40 Calcium 8.4 mg/dL (8.5-10.1) L 04/14/18 07:40 Total Bilirubin 0.3 mg/dL (0.2-1.0) D 04/14/18 07:40 AST 12 U/L (15-37) L 04/14/18 07:40 ALT 20 U/L (12-78) 04/14/18 07:40 Alkaline Phosphatase 103 U/L (45-117) 04/14/18 07:40 Total Protein 6.4 g/dl (6.4-8.2) 04/14/18 07:40 Albumin 3.4 g/dl (3.4-5.0) 04/14/18 07:40 Urine Color Yellow 04/14/18 08:15 Urine Appearance Turbid 04/14/18 08:15 Urine pH 5.0 (5.0-8.0) 04/14/18 08:15 Ur Specific [place] 1.029 (1.001-1.035) 04/14/18 08:15 Urine Protein Negative (NEGATIVE) 04/14/18 08:15 Urine Glucose (UA) Negative (NEGATIVE) 04/14/18 08:15 Urine Ketones Negative (NEGATIVE) 04/14/18 08:15 Urine Blood Negative (NEGATIVE) 04/14/18 08:15 Urine Nitrite Negative (NEGATIVE) 04/14/18 08:15 Urine Bilirubin Negative (<2.0 mg/dL) 04/14/18 08:15 Urine Urobilinogen Negative mg/dL (0.2-1.0) 04/14/18 08:15 Ur Leukocyte Esterase Negative (NEGATIVE) 04/14/18 08:15 RPR Titer Nonreactive (NONREACTIVE) 04/14/18 07:40 lab noted Assessment: 04/16/18 12:01 mild withdrawal sx Plan: medically supervised detox
[2018-04-16 14:08] VITALS: BP 116/69; PULSE 76; TEMP 98.2
--- NOTE | 2018-04-16 14:55 | DS ---
[facility] Detox Discharge Summary Admission Date: 04/13/18 Discharge Date: 04/16/18 - History Present History: Alcohol Dependence Additional Comments: 62 YEARS OLD MALE ADMITTED 04/13/18 FOR ALCOHOL WITHDRAWAL SX REPORTED FREE OF ALCOHOL WITHDRAWAL SX AND WANTS TO RETURN HOME TODAY ALERT ORIENTED X 3 NO ACUTE DISTRESS AFTERCARE ARRANGED PER COUNSELOR PATIENT AGREES TO RETURN TO [facility] FOR MEDICAL AND MENTAL TREATMENT - Physical Exam Results Vital Signs: Vital Signs Temperature 98.2 F 04/16/18 14:07 Pulse Rate 76 04/16/18 14:07 Respiratory Rate 18 04/16/18 14:07 Blood Pressure 116/69 04/16/18 14:07 O2 Sat by Pulse Oximetry (%) Pertinent Admission Physical Exam Findings: ALCOHOL WITHDRAWAL SX Vital Signs Temperature 98.2 F 04/16/18 14:07 Pulse Rate 76 04/16/18 14:07 Respiratory Rate 18 04/16/18 14:07 Blood Pressure 116/69 04/16/18 14:07 O2 Sat by Pulse Oximetry (%) Laboratory Last Values WBC 3.5 K/mm3 (4.0-10.0) L 04/14/18 07:40 RBC 4.29 M/mm3 (4.00-5.60) 04/14/18 07:40 Hgb 11.8 GM/dL (11.7-16.9) 04/14/18 07:40 Hct 36.6 % (35.4-49) 04/14/18 07:40 MCV 85.4 fl (80-96) 04/14/18 07:40 MCH 27.6 pg (25.7-33.7) 04/14/18 07:40 MCHC 32.3 g/dl (32.0-35.9) 04/14/18 07:40 RDW 14.9 % (11.9-15.9) 04/14/18 07:40 Plt Count 195 K/MM3 (134-434) D 04/14/18 07:40 MPV 8.1 fl (7.5-11.1) 04/14/18 07:40 Sodium 142 mmol/L (136-145) 04/14/18 07:40 Potassium 3.8 mmol/L (3.5-5.1) 04/14/18 07:40 Chloride 103 mmol/L (98-107) 04/14/18 07:40 Carbon Dioxide 33 mmol/L (21-32) H 04/14/18 07:40 Anion Gap 6 (8-16) L 04/14/18 07:40 BUN 18 mg/dL (7-18) 04/14/18 07:40 Creatinine 1.0 mg/dL (0.7-1.3) 04/14/18 07:40 Creat Clearance w eGFR > 60 (>60) 04/14/18 07:40 Random Glucose 96 mg/dL (74-106) 04/14/18 07:40 Calcium 8.4 mg/dL (8.5-10.1) L 04/14/18 07:40 Total Bilirubin 0.3 mg/dL (0.2-1.0) D 04/14/18 07:40 AST 12 U/L (15-37) L 04/14/18 07:40 ALT 20 U/L (12-78) 04/14/18 07:40 Alkaline Phosphatase 103 U/L (45-117) 04/14/18 07:40 Total Protein 6.4 g/dl (6.4-8.2) 04/14/18 07:40 Albumin 3.4 g/dl (3.4-5.0) 04/14/18 07:40 Urine Color Yellow 04/14/18 08:15 Urine Appearance Turbid 04/14/18 08:15 Urine pH 5.0 (5.0-8.0) 04/14/18 08:15 Ur Specific [place] 1.029 (1.001-1.035) 04/14/18 08:15 Urine Protein Negative (NEGATIVE) 04/14/18 08:15 Urine Glucose (UA) Negative (NEGATIVE) 04/14/18 08:15 Urine Ketones Negative (NEGATIVE) 04/14/18 08:15 Urine Blood Negative (NEGATIVE) 04/14/18 08:15 Urine Nitrite Negative (NEGATIVE) 04/14/18 08:15 Urine Bilirubin Negative (<2.0 mg/dL) 04/14/18 08:15 Urine Urobilinogen Negative mg/dL (0.2-1.0) 04/14/18 08:15 Ur Leukocyte Esterase Negative (NEGATIVE) 04/14/18 08:15 RPR Titer Nonreactive (NONREACTIVE) 04/14/18 07:40 LAB NOTED - Treatment Hospital Course: Detox Protocol Followed, Detoxed Safely, Responded well, Discharged Condition Good, Rehab Referral Accepted Patient has Accepted a Rehab Referral to: PER COUNSELOR ARRANGED - Medication Discharge Medications: Ambulatory Orders Methadone [Dolophine -] 60 mg PO DAILY 02/03/18 Oxycodone HCl/Acetaminophen [Oxycodone-Acetaminophen 10-325] 1 each PO BID 04/16 - Diagnosis (1) Alcohol dependence with uncomplicated withdrawal Current Visit: Yes Status: Acute (2) HTN (hypertension) Current Visit: Yes Status: Chronic Qualifiers: Hypertension type: essential hypertension Qualified Code(s): I10 - Essential (primary) hypertension (3) Hypercholesteremia Current Visit: Yes Status: Chronic (4) Methadone maintenance therapy patient Current Visit: Yes Status: Chronic (5) Nicotine dependence Current Visit: Yes Status: Acute Qualifiers: Nicotine product type: cigarettes Substance use status: in withdrawal Qualified Code(s): F17.213 - Nicotine dependence, cigarettes, with withdrawal (6) Pain management Current Visit: Yes Status: Chronic - AMA Did Patient Leave Against Medical Advice: No
[2018-04-16] MEDS ORDERED: chlordiazePOXIDE HCL 10 MG CAPSULE PO SCH (23:00)
== END 2018-04-16 15:10 | disposition home or self-care (01) | DRG 773 ==
LOC: YASAS 11:18 → Y6N 18:57
PROVIDERS: ADMIT Surgery; ATTEND Surgery
PROC: HZ2ZZZZ Detoxification Services for Substance Abuse Treatment (ICD-10-PCS; principal; 2018-04-13)
DX: F10.230 Alcohol dependence with withdrawal, uncomplicated (principal); F11.20 Opioid dependence, uncomplicated; F14.20 Cocaine dependence, uncomplicated; F17.213 Nicotine dependence, cigarettes, with withdrawal; N40.0 Benign prostatic hyperplasia without lower urinary tract symptoms; E66.9 Obesity, unspecified; Z68.35 Body mass index [BMI] 35.0-35.9, adult; Z86.69 Personal history of other diseases of the nervous system and sense organs
CPT/HCPCS: 36415; 80053; 81003; 85027; 86593; 93005; 93010

== ENCOUNTER 2018-07-01 10:34 | Inpatient (IN) | payer OTHER ==
[2018-07-01 10:59] VITALS: BMI 36.1
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
[2018-07-01] MEDS ORDERED: MENTHOL/PHENOL 1 EACH UD MM PRN (17:47)
[2018-07-01] MEDS ORDERED: LOPERAMIDE HCL 2 MG CAPSULE PO PRN (17:47)
[2018-07-01] MEDS ORDERED: NICOTINE POLACRILEX 2 MG GUM BC PRN (17:47)
[2018-07-01] MEDS ORDERED: MAGNESIUM HYDROX 2400MG/30ML ORAL SUSPENSION 30 ML CUP PO PRN (17:47)
[2018-07-01] MEDS ORDERED: ACETAMINOPHEN 325 MG TABLET (FP) PO PRN (17:47)
[2018-07-01] MEDS ORDERED: IBUPROFEN 400 MG TABLET (FP) PO PRN (17:47)
[2018-07-01] MEDS ORDERED: MAGNESIUM CITRATE 300 ML BOTTLE PO PRN (17:47)
[2018-07-01] MEDS ORDERED: guaiFENesin/D-METHORPHAN HB 10 ML UNIT-DOSE CUPS PO PRN (17:47)
[2018-07-01] MEDS ORDERED: MAG HYDROX/AL HYDROX/SIMETH 30 ML UNIT-DOSE CUP PO PRN (17:47)
[2018-07-01] MEDS ORDERED: P-EPHED 60MG/TRIPROLIDI 2.5MG TABLET PO PRN (17:47)
[2018-07-01] MEDS ORDERED: hydrOXYzine PAMOATE 50 MG CAPSULE (FP) PO PRN (17:47)
[2018-07-01] MEDS ORDERED: diazePAM 5 MG TABLET PO ONE (18:15)
[2018-07-01] MEDS ORDERED: MELATONIN 5 MG TABLETS PO PRN (22:00)
[2018-07-01] MEDS: diazePAM 5 MG TABLET PO SCH (22:15)
[2018-07-01] MEDS: THIAMINE HCL 100 MG TABLET (FP) PO SCH (22:16)
[2018-07-02 01:03] LABS: URINE APPEARANCE CLEAR; URINE BILIRUBIN NEGATIVE (<2.0 mg/dL); URINE COLOR YELLOW; URINE GLUCOSE (UA) NEGATIVE (NEGATIVE); URINE KETONE NEGATIVE (NEGATIVE); URINE LEUK ESTERASE NEGATIVE (NEGATIVE); URINE NITRITE NEGATIVE (NEGATIVE); URINE PROTEIN NEGATIVE (NEGATIVE); URINE UROBILINOGEN NEGATIVE mg/dL (0.2-1.0)
[2018-07-02] MEDS: diazePAM 5 MG TABLET PO SCH ×3 (07:00→23:05)
[2018-07-02 10:23] LABS: HEMATOCRIT 36.8 % (35.4-49); HEMOGLOBIN 12.2 GM/dL (11.7-16.9); MCH 28.5 pg (25.7-33.7); MCHC 33.2 g/dl (32.0-35.9); PLATELET COUNT 242 K/MM3 (134-434); RBC 4.28 M/mm3 (4.00-5.60); RDW 14.9 % (11.9-15.9); WHITE BLOOD COUNT 4.2 K/mm3 (4.0-10.0)
[2018-07-02] MEDS: PRENATAL VITAMINS W/ FOLIC ACID TABLET (FP) PO SCH (10:31)
[2018-07-02] MEDS: NICOTINE 14 MG/24 HOURS TOPICAL PATCH TD SCH (10:32)
[2018-07-02] MEDS ORDERED: METHADONE HCL 10 MG TABLET PO SCH (10:45)
[2018-07-02] MEDS ORDERED: LIDOCAINE VISCOUS 2% ORAL/TOP 20 ML UNIT-DOSE CUP MM PRN (10:45)
[2018-07-02] MEDS ORDERED: METHADONE HCL 10 MG TABLET ONE (10:55)
[2018-07-02] MEDS ORDERED: METHADONE HCL 40 MG DISPERSABLE TABLET ONE (10:56)
[2018-07-02] MEDS: METHADONE 40 MG, METHADONE 20 MG PO SCH (10:57)
[2018-07-02] MEDS: diazePAM 5 MG TABLET PO PRN (11:00)
[2018-07-02 11:34] LABS: ALBUMIN 3.6 g/dl (3.4-5.0); ANION GAP 5 (8-16); BILIRUBIN,TOTAL 0.1 mg/dL (0.2-1.0); BLOOD UREA NITROGEN 16 mg/dL (7-18); CHLORIDE 102 mmol/L (98-107); CO2 32 mmol/L (21-32); CREATININE 1.1 mg/dL (0.7-1.3); GLUCOSE,RANDOM 111 mg/dL (74-106); POTASSIUM 4.3 mmol/L (3.5-5.1); SGOT/AST 13 U/L (15-37); SGPT/ALT 23 U/L (12-78); SODIUM 139 mmol/L (136-145); TOT PROT 6.9 g/dl (6.4-8.2)
[2018-07-02 11:35] LABS: ALK PHOS 111 U/L (45-117)
--- NOTE | 2018-07-02 13:17 | EKG ---
Test Reason : Blood Pressure : / mmHG Vent. Rate : 084 BPM Atrial Rate : 084 BPM P-R Int : 240 ms QRS Dur : 108 ms QT Int : 402 ms P-R-T Axes : 020 -26 032 degrees QTc Int : 475 ms SINUS RHYTHM WITH 1ST DEGREE A-V BLOCK OTHERWISE NORMAL ECG WHEN COMPARED WITH ECG OF 13-APR-2018 19:13, [place] INTERVAL HAS INCREASED Confirmed by Lawrence Carter MD ([id number]) on 07/02/2018 1:16:25 PM Referred By: Confirmed By:Lawrence Carter MD
[2018-07-02] MEDS ORDERED: amLODIPine BESYLATE 5 MG TABLET (FP) PO ONE (15:12)
--- NOTE | 2018-07-02 15:13 | PN ---
[facility] CIWA - CIWA Score Nausea/Vomitin-No Nausea/No Vomiting Muscle Tremors: None Anxiety: 4-Mod. Anxious/Guarded Agitation: 4-Moderately Restless Paroxysmal Sweats: 2 Orientation: 0-Oriented Tacttile Disturbances: 2-Mild Itch/Numbness/Burn Auditory Disturbances: 1-Very Mild Visual Disturbances: 2-Mild Sensitivity Headache: 0-None Present CIWA-Ar Total Score: 15 S Progress Note (SOAP) Subjective: Anxious, Sweating, Body Aches, Constipation. Objective: PATIENT A & O X 3, OBSERVED AMBULATING ON UNIT. NO ACUTE DISTRESS. PATIENT DENIES CHEST PAIN. 07/02/18 15:10 Vital Signs Temperature 100.3 F H 07/02/18 13:32 Pulse Rate 89 07/02/18 13:32 Respiratory Rate 18 07/02/18 13:32 Blood Pressure 136/94 07/02/18 13:32 O2 Sat by Pulse Oximetry (%) Laboratory Tests 07/01/18 07/02/18 07/02/18 23:25 06:00 06:00 WBC 4.2 RBC 4.28 Hgb 12.2 Hct 36.8 MCV 86.0 MCH 28.5 MCHC 33.2 RDW 14.9 Plt Count 242 D MPV 9.0 D Sodium 139 Potassium 4.3 Chloride 102 Carbon Dioxide 32 Anion Gap 5 L BUN 16 Creatinine 1.1 Creat Clearance w eGFR > 60 Random Glucose 111 H Calcium 9.0 Total Bilirubin 0.1 L AST 13 L ALT 23 Alkaline Phosphatase 111 Total Protein 6.9 Albumin 3.6 Urine Color Yellow Urine Appearance Clear Urine pH 6.0 Ur Specific [place] 1.024 Urine Protein Negative Urine Glucose (UA) Negative Urine Ketones Negative Urine Blood Negative Urine Nitrite Negative Urine Bilirubin Negative Urine Urobilinogen Negative Ur Leukocyte Esterase Negative RPR Titer 07/02/18 06:00 WBC RBC Hgb Hct MCV MCH MCHC RDW Plt Count MPV Sodium Potassium Chloride Carbon Dioxide Anion Gap BUN Creatinine Creat Clearance w eGFR Random Glucose Calcium Total Bilirubin AST ALT Alkaline Phosphatase Total Protein Albumin Urine Color Urine Appearance Urine pH Ur Specific [place] Urine Protein Urine Glucose (UA) Urine Ketones Urine Blood Urine Nitrite Urine Bilirubin Urine Urobilinogen Ur Leukocyte Esterase RPR Titer Nonreactive LABS NOTED. Assessment: 07/02/18 15:12 WITHDRAWAL SYMPTOMS. HYPERTENSION. Plan: CONTINUE DETOX. AMLODIPINE, 5 MG PO DAILY FOR ELEVATED BP (PATIENT DENIES HISTORY OF TREATMENT FOR HTN). COLACE, SENNA FOR CONSTIPATION.
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
[2018-07-02] MEDS ORDERED: SENNOSIDES/DOCUSATE COMBO (SENNA PLUS) TABLET (UD) PO SCH (22:00)
[2018-07-02] MEDS: THIAMINE HCL 100 MG TABLET (FP) PO SCH (23:05)
[2018-07-03] MEDS: diazePAM 5 MG TABLET PO PRN ×2 (01:56→06:48)
[2018-07-03] MEDS ORDERED: METHADONE HCL 10 MG TABLET ONE (04:12)
[2018-07-03] MEDS ORDERED: METHADONE HCL 40 MG DISPERSABLE TABLET ONE (04:13)
[2018-07-03] MEDS: METHADONE 40 MG, METHADONE 20 MG PO SCH (06:44)
[2018-07-03] MEDS ORDERED: amLODIPine BESYLATE 5 MG TABLET (FP) PO SCH (10:00)
[2018-07-03] MEDS ORDERED: diazePAM 5 MG TABLET PO SCH (10:00)
[2018-07-03] MEDS: PRENATAL VITAMINS W/ FOLIC ACID TABLET (FP) PO SCH (10:12)
[2018-07-03] MEDS: NICOTINE 14 MG/24 HOURS TOPICAL PATCH TD SCH (10:12)
--- NOTE | 2018-07-03 13:22 | PN ---
S CIWA - CIWA Score Nausea/Vomitin-No Nausea/No Vomiting Muscle Tremors: None Anxiety: 3 Agitation: 3 Paroxysmal Sweats: 3 Orientation: 0-Oriented Tacttile Disturbances: 2-Mild Itch/Numbness/Burn Auditory Disturbances: 0-None Visual Disturbances: 2-Mild Sensitivity Headache: 0-None Present CIWA-Ar Total Score: 13 BHS Progress Note (SOAP) Subjective: Sweating, Anxious, Body Aches. Objective: PATIENT A & O X 3, OBSERVED AMBULATING ON UNIT. NO ACUTE DISTRESS. 07/03/18 13:22 Vital Signs Temperature 97.3 F L 07/03/18 10:02 Pulse Rate 84 07/03/18 10:02 Respiratory Rate 20 07/03/18 10:02 Blood Pressure 126/88 07/03/18 10:02 O2 Sat by Pulse Oximetry (%) Laboratory Tests 07/01/18 07/02/18 07/02/18 23:25 06:00 06:00 WBC 4.2 RBC 4.28 Hgb 12.2 Hct 36.8 MCV 86.0 MCH 28.5 MCHC 33.2 RDW 14.9 Plt Count 242 D MPV 9.0 D Sodium 139 Potassium 4.3 Chloride 102 Carbon Dioxide 32 Anion Gap 5 L BUN 16 Creatinine 1.1 Creat Clearance w eGFR > 60 Random Glucose 111 H Calcium 9.0 Total Bilirubin 0.1 L AST 13 L ALT 23 Alkaline Phosphatase 111 Total Protein 6.9 Albumin 3.6 Urine Color Yellow Urine Appearance Clear Urine pH 6.0 Ur Specific [place] 1.024 Urine Protein Negative Urine Glucose (UA) Negative Urine Ketones Negative Urine Blood Negative Urine Nitrite Negative Urine Bilirubin Negative Urine Urobilinogen Negative Ur Leukocyte Esterase Negative RPR Titer 07/02/18 06:00 WBC RBC Hgb Hct MCV MCH MCHC RDW Plt Count MPV Sodium Potassium Chloride Carbon Dioxide Anion Gap BUN Creatinine Creat Clearance w eGFR Random Glucose Calcium Total Bilirubin AST ALT Alkaline Phosphatase Total Protein Albumin Urine Color Urine Appearance Urine pH Ur Specific [place] Urine Protein Urine Glucose (UA) Urine Ketones Urine Blood Urine Nitrite Urine Bilirubin Urine Urobilinogen Ur Leukocyte Esterase RPR Titer Nonreactive LABS NOTED. Assessment: 07/03/18 13:22 WITHDRAWAL SYMPTOMS. Plan: CONTINUE DETOX.
[2018-07-03 14:16] VITALS: BP 112/80; PULSE 79; TEMP 97
--- NOTE | 2018-07-03 15:48 | DS ---
[facility] Detox Discharge Summary Admission Date: 07/01/18 Discharge Date: 07/03/18 - History Present History: Alcohol Dependence, Cannabis Dependence, Cocaine Dependence, Opioid Dependence Additional Comments: PATIENT DOES NOT WISH TO REMAIN TO COMPLETE DETOX REGIMEN. RISKS OF LEAVING DETOX UNIT AGAINST MEDICAL ADVICE AND PRIOR TO COMPLETION OF DETOX REGIMEN EXPLAINED TO PATIENT. PATIENT ADVISED TO GO IMMEDIATELY TO NEAREST ER SHOULD ANY INTOLERABLE DETOX SYMPTOMS DEVELOP AT ANY TIME. PATIENT LEFT DETOX UNIT IN STABLE MEDICAL CONDITION. Pertinent Past History: Hypercholesterolemia, Nicotine Dependence, History of BPH, HTN, MMTP, Borderline DM. - Physical Exam Results Vital Signs: Vital Signs Temperature 97.0 F L 07/03/18 14:15 Pulse Rate 79 07/03/18 14:15 Respiratory Rate 19 07/03/18 14:15 Blood Pressure 112/80 07/03/18 14:15 O2 Sat by Pulse Oximetry (%) Pertinent Admission Physical Exam Findings: WITHDRAWAL SYMPTOMS. Laboratory Tests 07/01/18 07/02/18 07/02/18 23:25 06:00 06:00 WBC 4.2 RBC 4.28 Hgb 12.2 Hct 36.8 MCV 86.0 MCH 28.5 MCHC 33.2 RDW 14.9 Plt Count 242 D MPV 9.0 D Sodium 139 Potassium 4.3 Chloride 102 Carbon Dioxide 32 Anion Gap 5 L BUN 16 Creatinine 1.1 Creat Clearance w eGFR > 60 Random Glucose 111 H Calcium 9.0 Total Bilirubin 0.1 L AST 13 L ALT 23 Alkaline Phosphatase 111 Total Protein 6.9 Albumin 3.6 Urine Color Yellow Urine Appearance Clear Urine pH 6.0 Ur Specific [place] 1.024 Urine Protein Negative Urine Glucose (UA) Negative Urine Ketones Negative Urine Blood Negative Urine Nitrite Negative Urine Bilirubin Negative Urine Urobilinogen Negative Ur Leukocyte Esterase Negative RPR Titer 07/02/18 06:00 WBC RBC Hgb Hct MCV MCH MCHC RDW Plt Count MPV Sodium Potassium Chloride Carbon Dioxide Anion Gap BUN Creatinine Creat Clearance w eGFR Random Glucose Calcium Total Bilirubin AST ALT Alkaline Phosphatase Total Protein Albumin Urine Color Urine Appearance Urine pH Ur Specific [place] Urine Protein Urine Glucose (UA) Urine Ketones Urine Blood Urine Nitrite Urine Bilirubin Urine Urobilinogen Ur Leukocyte Esterase RPR Titer Nonreactive LABS NOTED. - Treatment Hospital Course: Detoxed Safely - Medication Discharge Medications: Ambulatory Orders NK [No Known Home Medication] 07/01/18 - Diagnosis (1) Alcohol dependence with uncomplicated withdrawal Current Visit: Yes Status: Acute (2) Cocaine dependence, uncomplicated Current Visit: Yes Status: Acute (3) BPH (benign prostatic hyperplasia) Current Visit: Yes Status: Chronic Qualifiers: Lower urinary tract symptom presence: unspecified whether lower urinary tract symptoms present Qualified Code(s): N40.0 - Benign prostatic hyperplasia without lower urinary tract symptoms (4) HTN (hypertension) Current Visit: Yes Status: Chronic Qualifiers: Hypertension type: essential hypertension Qualified Code(s): I10 - Essential (primary) hypertension (5) Obesity (BMI 30-39.9) Current Visit: Yes Status: Chronic (6) Opioid dependence on agonist therapy Current Visit: Yes Status: Chronic (7) Nicotine dependence Current Visit: Yes Status: Acute Qualifiers: Nicotine product type: cigarettes Substance use status: in withdrawal Qualified Code(s): F17.213 - Nicotine dependence, cigarettes, with withdrawal (8) Cannabis abuse Current Visit: Yes Status: Chronic (9) Hypercholesteremia Current Visit: Yes Status: Chronic (10) Methadone maintenance therapy patient Current Visit: Yes Status: Chronic - AMA Did Patient Leave Against Medical Advice: Yes (PATIENT DID NOT WISH TO REMAIN TO COMPLETE DETOX REGIMEN.)
[2018-07-05] MEDS ORDERED: diazePAM 5 MG TABLET PO SCH (10:00)
== END 2018-07-03 16:00 | disposition left against medical advice (07) | DRG 770 ==
LOC: YASAS 10:34 → Y3N 13:53
PROVIDERS: ADMIT Surgery; ATTEND Surgery
PROC: HZ2ZZZZ Detoxification Services for Substance Abuse Treatment (ICD-10-PCS; principal; 2018-07-01)
DX: F10.230 Alcohol dependence with withdrawal, uncomplicated (principal); F11.20 Opioid dependence, uncomplicated; F14.20 Cocaine dependence, uncomplicated; F12.10 Cannabis abuse, uncomplicated; F17.213 Nicotine dependence, cigarettes, with withdrawal; I10 Essential (primary) hypertension; N40.0 Benign prostatic hyperplasia without lower urinary tract symptoms; E78.5 Hyperlipidemia, unspecified; R73.03 Prediabetes; E66.9 Obesity, unspecified; Z68.36 Body mass index [BMI] 36.0-36.9, adult
CPT/HCPCS: 36415; 80053; 81003; 82962; 85027; 86593; 93005; 93010

== ENCOUNTER 2018-08-16 10:09 | Inpatient (IN) | payer OTHER ==
[2018-08-16 10:47] VITALS: BMI 34.9
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
[2018-08-16] MEDS ORDERED: MAG HYDROX/AL HYDROX/SIMETH 30 ML UNIT-DOSE CUP PO PRN (11:36)
[2018-08-16] MEDS ORDERED: LOPERAMIDE HCL 2 MG CAPSULE PO PRN (11:36)
[2018-08-16] MEDS ORDERED: ACETAMINOPHEN 325 MG TABLET (FP) PO PRN (11:36)
[2018-08-16] MEDS ORDERED: MAGNESIUM HYDROX 2400MG/30ML ORAL SUSPENSION 30 ML CUP PO PRN (11:36)
[2018-08-16] MEDS ORDERED: IBUPROFEN 400 MG TABLET (FP) PO PRN (11:36)
[2018-08-16] MEDS ORDERED: MENTHOL/PHENOL 1 EACH UD MM PRN (11:36)
[2018-08-16] MEDS ORDERED: MAGNESIUM CITRATE 300 ML BOTTLE PO PRN (11:36)
[2018-08-16] MEDS ORDERED: P-EPHED 60MG/TRIPROLIDI 2.5MG TABLET PO PRN (11:36)
[2018-08-16] MEDS: chlordiazePOXIDE HCL 25 MG CAPSULE PO PRN (12:45)
[2018-08-16] MEDS: chlordiazePOXIDE HCL 25 MG CAPSULE PO SCH ×2 (18:31→22:22)
[2018-08-16] MEDS: guaiFENesin/D-METHORPHAN HB 10 ML UNIT-DOSE CUPS PO PRN (18:56)
[2018-08-16] MEDS ORDERED: MELATONIN 5 MG TABLETS PO PRN (22:00)
[2018-08-16] MEDS: THIAMINE HCL 100 MG TABLET (FP) PO SCH (22:22)
[2018-08-17] MEDS: guaiFENesin/D-METHORPHAN HB 10 ML UNIT-DOSE CUPS PO PRN (02:38)
[2018-08-17] MEDS: chlordiazePOXIDE HCL 25 MG CAPSULE PO PRN ×2 (02:47→07:55)
[2018-08-17] MEDS ORDERED: METHADONE HCL 10 MG TABLET ONE ×2 (04:25→07:52)
[2018-08-17] MEDS ORDERED: METHADONE HCL 40 MG DISPERSABLE TABLET ONE ×2 (04:25→07:52)
[2018-08-17] MEDS ORDERED: METHADONE HCL 10 MG TABLET PO SCH (06:00)
[2018-08-17] MEDS: chlordiazePOXIDE HCL 25 MG CAPSULE PO SCH ×4 (06:58→23:01)
[2018-08-17] MEDS: METHADONE 40 MG, METHADONE 20 MG PO SCH ×2 (06:58→07:54)
[2018-08-17 10:13] LABS: HEMATOCRIT 36.9 % (35.4-49); HEMOGLOBIN 11.7 GM/dL (11.7-16.9); MCH 27.4 pg (25.7-33.7); MCHC 31.7 g/dl (32.0-35.9); MEAN CELL VOLUME 86.5 fl (80-96); MEAN PLT VOLUME 9.2 fl (7.5-11.1); PLATELET COUNT 241 K/MM3 (134-434); RBC 4.27 M/mm3 (4.00-5.60); RDW 14.2 % (11.9-15.9)
[2018-08-17 10:14] LABS: URINE APPEARANCE CLEAR; URINE BILIRUBIN NEGATIVE (<2.0 mg/dL); URINE COLOR YELLOW; URINE GLUCOSE (UA) NEGATIVE (NEGATIVE); URINE KETONE NEGATIVE (NEGATIVE); URINE LEUK ESTERASE TRACE (NEGATIVE); URINE NITRITE NEGATIVE (NEGATIVE); URINE PROTEIN NEGATIVE (NEGATIVE); URINE UROBILINOGEN NEGATIVE mg/dL (0.2-1.0)
[2018-08-17 10:23] LABS: EPI CELLS RARE /HPF (FEW); URINE HYALINE CAST 1 /lpf
[2018-08-17] MEDS: PRENATAL VITAMINS W/ FOLIC ACID TABLET (FP) PO SCH (10:41)
--- NOTE | 2018-08-17 10:52 | PN ---
S CIWA - CIWA Score Nausea/Vomitin Muscle Tremors: 1-None Visible, but [place] Anxiety: 2 Agitation: 2 Paroxysmal Sweats: No Perspiration Orientation: 0-Oriented Tacttile Disturbances: 0-None Auditory Disturbances: 0-None Visual Disturbances: 0-None Headache: 2-Mild CIWA-Ar Total Score: 9 BHS Progress Note (SOAP) Subjective: PATIENT C/O SHAKES, HEADACHE, NAUSEA/DIARRHEA. ALSO STATES HAVING A PRODUCTIVE COUGH AND NASAL CONGESTION. " I AM COUGHING UP YELLOW/GREEN PHLEGM". Objective: 08/17/18 10:49 Vital Signs Temperature 97.5 F L 08/17/18 10:31 Pulse Rate 78 08/17/18 10:31 Respiratory Rate 18 08/17/18 10:31 Blood Pressure 150/96 08/17/18 10:31 O2 Sat by Pulse Oximetry (%) Laboratory Tests 08/17/18 08/17/18 06:00 08:30 WBC 6.0 RBC 4.27 Hgb 11.7 Hct 36.9 MCV 86.5 MCH 27.4 MCHC 31.7 L RDW 14.2 Plt Count 241 MPV 9.2 Urine Color Yellow Urine Appearance Clear Urine pH 6.0 Ur Specific [place] 1.027 Urine Protein Negative Urine Glucose (UA) Negative Urine Ketones Negative Urine Blood Negative Urine Nitrite Negative Urine Bilirubin Negative Urine Urobilinogen Negative Ur Leukocyte Esterase Trace Urine WBC (Auto) 5 Urine RBC (Auto) 1 Ur Epithelial Cells Rare Hyaline Casts 1 SKIN WARM AND DRY ALERT AND ORIENTED CAR S1S2 RESP FAINT WHEEZE RUL, +YELLOW EXPECTORANT/PHLEGM COUGHED UP DURING EXAM ENT +NASAL CONGESTION EXT +TREMORS Assessment: 08/17/18 10:50 WITHDRAWAL SYNDROME SINUSITIS/URI 08/17/18 10:51 Plan: CONTINUE DETOX ACTIFED FOR NASAL CONGESTION START AUGMENTIN 875/125MG BID X 7 DAYS ENCOURAGE ORAL FLUIDS
[2018-08-17 10:55] LABS: ALBUMIN 3.4 g/dl (3.4-5.0); ALK PHOS 113 U/L (45-117); ANION GAP 7 MMOL/L (8-16); BILIRUBIN,TOTAL 0.3 mg/dL (0.2-1); BLOOD UREA NITROGEN 18 mg/dL (7-18); CALCIUM 8.8 mg/dL (8.5-10.1); CHLORIDE 102 mmol/L (98-107); CO2 28 mmol/L (21-32); CREATININE 0.9 mg/dL (0.55-1.3); GLUCOSE,RANDOM 97 mg/dL (74-106); POTASSIUM 4.2 mmol/L (3.5-5.1); SGOT/AST 13 U/L (15-37); SGPT/ALT 22 U/L (13-61); SODIUM 137 mmol/L (136-145); TOT PROT 7.2 g/dl (6.4-8.2)
[2018-08-17] MEDS ORDERED: AMOX TR/POT CLAV 875MG/125MG TABLETS (FP) PO SCH ×3 (12:45→17:30)
--- NOTE | 2018-08-17 17:31 | EKG ---
Test Reason : Blood Pressure : / mmHG Vent. Rate : 081 BPM Atrial Rate : 081 BPM P-R Int : 172 ms QRS Dur : 108 ms QT Int : 402 ms P-R-T Axes : 054 -20 037 degrees QTc Int : 466 ms NORMAL SINUS RHYTHM NORMAL ECG WHEN COMPARED WITH ECG OF 01-JUL-2018 18:01, [place] INTERVAL HAS DECREASED CLINICAL CORRELATION IS RECOMMENDED Confirmed by ILIANA GRULLON MD ([id number]) on 08/17/2018 5:30:57 PM Referred By: Confirmed By:ILIANA GRULLON MD
[2018-08-17] MEDS: AMOX TR/POT CLAV 875MG/125MG TABLETS (FP) PO SCH (17:43)
[2018-08-17] MEDS: THIAMINE HCL 100 MG TABLET (FP) PO SCH (23:01)
[2018-08-18] MEDS: guaiFENesin/D-METHORPHAN HB 10 ML UNIT-DOSE CUPS PO PRN ×2 (02:27→14:09)
[2018-08-18] MEDS ORDERED: METHADONE HCL 40 MG DISPERSABLE TABLET ONE (04:13)
[2018-08-18] MEDS ORDERED: METHADONE HCL 10 MG TABLET ONE (04:13)
[2018-08-18] MEDS: METHADONE 40 MG, METHADONE 20 MG PO SCH (06:27)
[2018-08-18] MEDS: chlordiazePOXIDE HCL 25 MG CAPSULE PO SCH ×2 (06:28→10:45)
[2018-08-18] MEDS: AMOX TR/POT CLAV 875MG/125MG TABLETS (FP) PO SCH ×2 (07:41→17:05)
[2018-08-18] MEDS: PRENATAL VITAMINS W/ FOLIC ACID TABLET (FP) PO SCH (10:44)
--- NOTE | 2018-08-18 13:59 | PN ---
[facility] CIWA - CIWA Score Nausea/Vomitin-No Nausea/No Vomiting Muscle Tremors: 3 Anxiety: 2 Agitation: 3 Paroxysmal Sweats: 1-Minimal Palms Moist Orientation: 0-Oriented Tacttile Disturbances: 1-Very Mild Itch/Numbness Auditory Disturbances: 0-None Visual Disturbances: 0-None Headache: 0-None Present CIWA-Ar Total Score: 10 BHS Progress Note (SOAP) Subjective: sweat tremor gi distress restlessness anxiety Objective: 08/18/18 13:58 Vital Signs Temperature 97.2 F L 08/18/18 10:28 Pulse Rate 75 08/18/18 10:28 Respiratory Rate 18 08/18/18 10:28 Blood Pressure 127/77 08/18/18 10:28 O2 Sat by Pulse Oximetry (%) Laboratory Last Values WBC 6.0 K/mm3 (4.0-10.0) 08/17/18 06:00 RBC 4.27 M/mm3 (4.00-5.60) 08/17/18 06:00 Hgb 11.7 GM/dL (11.7-16.9) 08/17/18 06:00 Hct 36.9 % (35.4-49) 08/17/18 06:00 MCV 86.5 fl (80-96) 08/17/18 06:00 MCH 27.4 pg (25.7-33.7) 08/17/18 06:00 MCHC 31.7 g/dl (32.0-35.9) L 08/17/18 06:00 RDW 14.2 % (11.9-15.9) 08/17/18 06:00 Plt Count 241 K/MM3 (134-434) 08/17/18 06:00 MPV 9.2 fl (7.5-11.1) 08/17/18 06:00 Sodium 137 mmol/L (136-145) 08/17/18 06:00 Potassium 4.2 mmol/L (3.5-5.1) 08/17/18 06:00 Chloride 102 mmol/L (98-107) 08/17/18 06:00 Carbon Dioxide 28 mmol/L (21-32) 08/17/18 06:00 Anion Gap 7 MMOL/L (8-16) L 08/17/18 06:00 BUN 18 mg/dL (7-18) 08/17/18 06:00 Creatinine 0.9 mg/dL (0.55-1.3) 08/17/18 06:00 Creat Clearance w eGFR > 60 (>60) 08/17/18 06:00 Random Glucose 97 mg/dL (74-106) 08/17/18 06:00 Calcium 8.8 mg/dL (8.5-10.1) 08/17/18 06:00 Total Bilirubin 0.3 mg/dL (0.2-1) 08/17/18 06:00 AST 13 U/L (15-37) L 08/17/18 06:00 ALT 22 U/L (13-61) 08/17/18 06:00 Alkaline Phosphatase 113 U/L (45-117) 08/17/18 06:00 Total Protein 7.2 g/dl (6.4-8.2) 08/17/18 06:00 Albumin 3.4 g/dl (3.4-5.0) 08/17/18 06:00 Urine Color Yellow 08/17/18 08:30 Urine Appearance Clear 08/17/18 08:30 Urine pH 6.0 (5.0-8.0) 08/17/18 08:30 Ur Specific [place] 1.027 (1.010-1.035) 08/17/18 08:30 Urine Protein Negative (NEGATIVE) 08/17/18 08:30 Urine Glucose (UA) Negative (NEGATIVE) 08/17/18 08:30 Urine Ketones Negative (NEGATIVE) 08/17/18 08:30 Urine Blood Negative (NEGATIVE) 08/17/18 08:30 Urine Nitrite Negative (NEGATIVE) 08/17/18 08:30 Urine Bilirubin Negative (<2.0 mg/dL) 08/17/18 08:30 Urine Urobilinogen Negative mg/dL (0.2-1.0) 08/17/18 08:30 Ur Leukocyte Esterase Trace (NEGATIVE) 08/17/18 08:30 Urine WBC (Auto) 5 /hpf (3-5) 08/17/18 08:30 Urine RBC (Auto) 1 /hpf (0-3) 08/17/18 08:30 Ur Epithelial Cells Rare /HPF (FEW) 08/17/18 08:30 Hyaline Casts 1 /lpf 08/17/18 08:30 RPR Titer Nonreactive (NONREACTIVE) 08/17/18 06:00 lab noted Assessment: 08/18/18 13:59 withdrawal sx Plan: continue detox
[2018-08-18] MEDS ORDERED: chlordiazePOXIDE 5 MG CAPSULE PO SCH (17:00)
[2018-08-18 17:19] VITALS: BP 128/90; PULSE 81; TEMP 98.7
--- NOTE | 2018-08-18 18:40 | PN ---
[facility] Progress Note Note: patient did not want to continue treatment,did not want to wait,seen by counselor,all attempts to convince patient to stay with no avail, patient signed release ama,
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
[2018-08-19] MEDS ORDERED: chlordiazePOXIDE HCL 10 MG CAPSULE PO SCH (17:00)
== END 2018-08-18 17:45 | disposition left against medical advice (07) | DRG 770 ==
LOC: YASAS 10:09 → Y6N 11:25
PROC: HZ2ZZZZ Detoxification Services for Substance Abuse Treatment (ICD-10-PCS; principal; 2018-08-16)
DX: F10.230 Alcohol dependence with withdrawal, uncomplicated (principal); F14.20 Cocaine dependence, uncomplicated; F11.20 Opioid dependence, uncomplicated; F17.213 Nicotine dependence, cigarettes, with withdrawal; J20.9 Acute bronchitis, unspecified; E78.00 Pure hypercholesterolemia, unspecified; E66.9 Obesity, unspecified; Z68.30 Body mass index [BMI] 30.0-30.9, adult; Z87.828 Personal history of other (healed) physical injury and trauma
CPT/HCPCS: 36415; 80053; 81003; 81015; 85027; 86593; 93005; 93010

== ENCOUNTER 2018-09-17 10:15 | Inpatient (IN) | payer OTHER ==
[2018-09-17 10:49] VITALS: BMI 34.5
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
[2018-09-17] MEDS ORDERED: IBUPROFEN 400 MG TABLET (FP) PO PRN (11:06)
[2018-09-17] MEDS ORDERED: MAG HYDROX/AL HYDROX/SIMETH 30 ML UNIT-DOSE CUP PO PRN (11:06)
[2018-09-17] MEDS ORDERED: LOPERAMIDE HCL 2 MG CAPSULE PO PRN (11:06)
[2018-09-17] MEDS ORDERED: P-EPHED 60MG/TRIPROLIDI 2.5MG TABLET PO PRN (11:06)
[2018-09-17] MEDS ORDERED: guaiFENesin/D-METHORPHAN HB 10 ML UNIT-DOSE CUPS PO PRN (11:06)
[2018-09-17] MEDS ORDERED: hydrOXYzine PAMOATE 50 MG CAPSULE (FP) PO PRN (11:06)
[2018-09-17] MEDS ORDERED: MAGNESIUM HYDROX 2400MG/30ML ORAL SUSPENSION 30 ML CUP PO PRN (11:06)
[2018-09-17] MEDS ORDERED: MENTHOL/PHENOL 1 EACH UD MM PRN (11:06)
[2018-09-17] MEDS ORDERED: chlordiazePOXIDE HCL 25 MG CAPSULE PO PRN (11:06)
[2018-09-17] MEDS ORDERED: MAGNESIUM CITRATE 300 ML BOTTLE PO PRN (11:06)
[2018-09-17] MEDS ORDERED: ACETAMINOPHEN 325 MG TABLET (FP) PO PRN (11:06)
[2018-09-17] MEDS: chlordiazePOXIDE HCL 25 MG CAPSULE PO SCH ×2 (18:14→22:20)
[2018-09-17] MEDS ORDERED: MELATONIN 5 MG TABLETS PO PRN (22:00)
[2018-09-17] MEDS: THIAMINE HCL 100 MG TABLET (FP) PO SCH (22:20)
[2018-09-18 01:08] LABS: URINE APPEARANCE CLEAR; URINE BILIRUBIN NEGATIVE (<2.0 mg/dL); URINE COLOR YELLOW; URINE GLUCOSE (UA) NEGATIVE (NEGATIVE); URINE KETONE NEGATIVE (NEGATIVE); URINE LEUK ESTERASE NEGATIVE (NEGATIVE); URINE NITRITE NEGATIVE (NEGATIVE); URINE PROTEIN NEGATIVE (NEGATIVE); URINE UROBILINOGEN NEGATIVE mg/dL (0.2-1.0)
[2018-09-18] MEDS ORDERED: METHADONE HCL 40 MG DISPERSABLE TABLET ONE (04:47)
[2018-09-18] MEDS ORDERED: METHADONE HCL 10 MG TABLET ONE (04:47)
[2018-09-18] MEDS ORDERED: METHADONE HCL 10 MG TABLET PO SCH (06:00)
[2018-09-18] MEDS: chlordiazePOXIDE HCL 25 MG CAPSULE PO SCH (06:00)
[2018-09-18] MEDS: METHADONE 40 MG, METHADONE 20 MG PO SCH (06:52)
--- NOTE | 2018-09-18 09:51 | EKG ---
Test Reason : Blood Pressure : / mmHG Vent. Rate : 091 BPM Atrial Rate : 091 BPM P-R Int : 216 ms QRS Dur : 102 ms QT Int : 390 ms P-R-T Axes : 014 -25 021 degrees QTc Int : 479 ms SINUS RHYTHM WITH 1ST DEGREE A-V BLOCK INFERIOR INFARCT , AGE UNDETERMINED ABNORMAL ECG WHEN COMPARED WITH ECG OF 16-AUG-2018 12:29, [place] INTERVAL HAS INCREASED INFERIOR INFARCT IS NOW PRESENT Confirmed by GUSTAVO RIVERO, CRISTIN ([id number]) on 09/18/2018 9:50:56 AM Referred By: Confirmed By:CRISTIN CHEN MD
[2018-09-18] MEDS ORDERED: PRENATAL VITAMINS W/ FOLIC ACID TABLET (FP) PO SCH (10:00)
[2018-09-18 10:39] LABS: HEMATOCRIT 39.5 % (35.4-49); HEMOGLOBIN 12.6 GM/dL (11.7-16.9); MCH 27.4 pg (25.7-33.7); MCHC 31.8 g/dl (32.0-35.9); MEAN CELL VOLUME 86.1 fl (80-96); MEAN PLT VOLUME 8.7 fl (7.5-11.1); PLATELET COUNT 215 K/MM3 (134-434); RBC 4.58 M/mm3 (4.00-5.60); RDW 14.4 % (11.9-15.9); WHITE BLOOD COUNT 4.2 K/mm3 (4.0-10.0)
[2018-09-18] MEDS ORDERED: diazePAM 5 MG TABLET PO ONE (10:50)
[2018-09-18 10:51] LABS: ALBUMIN 3.8 g/dl (3.4-5.0); ALK PHOS 116 U/L (45-117); ANION GAP 10 MMOL/L (8-16); BILIRUBIN,TOTAL 0.3 mg/dL (0.2-1); BLOOD UREA NITROGEN 16 mg/dL (7-18); CALCIUM 9.2 mg/dL (8.5-10.1); CHLORIDE 100 mmol/L (98-107); CO2 30 mmol/L (21-32); GLUCOSE,RANDOM 105 mg/dL (74-106); POTASSIUM 4.3 mmol/L (3.5-5.1); SGOT/AST 13 U/L (15-37); SGPT/ALT 21 U/L (13-61); SODIUM 141 mmol/L (136-145); TOT PROT 7.2 g/dl (6.4-8.2)
[2018-09-18] MEDS: diazePAM 5 MG TABLET PO SCH ×2 (13:47→22:40)
--- NOTE | 2018-09-18 15:11 | PN ---
S CIWA - CIWA Score Nausea/Vomitin Muscle Tremors: 4-Moderate,w/Arms Extend Anxiety: 4-Mod. Anxious/Guarded Agitation: 3 Paroxysmal Sweats: 2 Orientation: 0-Oriented Tacttile Disturbances: 1-Very Mild Itch/Numbness Auditory Disturbances: 0-None Visual Disturbances: 0-None Headache: 1-Very Mild CIWA-Ar Total Score: 17 BHS Progress Note (SOAP) Subjective: Anxious, interrupted sleep, chills, sweating. Patient requested to change librium detox protocol to valium stating that librium is not good for his stomach. Objective: 09/18/18 15:10 Last Vital Signs Temp Pulse Resp BP Pulse Ox 97 F L 92 H 20 119/71 09/18/18 13:50 09/18/18 13:50 09/18/18 13:50 09/18/18 13:50 Laboratory Tests 09/17/18 09/18/18 09/18/18 23:29 06:00 06:00 WBC 4.2 RBC 4.58 Hgb 12.6 Hct 39.5 MCV 86.1 MCH 27.4 MCHC 31.8 L RDW 14.4 Plt Count 215 MPV 8.7 Sodium 141 Potassium 4.3 Chloride 100 Carbon Dioxide 30 Anion Gap 10 BUN 16 Creatinine 1.0 Creat Clearance w eGFR > 60 Random Glucose 105 Calcium 9.2 Total Bilirubin 0.3 AST 13 L ALT 21 Alkaline Phosphatase 116 Total Protein 7.2 Albumin 3.8 Urine Color Yellow Urine Appearance Clear Urine pH 5.0 Ur Specific [place] 1.023 Urine Protein Negative Urine Glucose (UA) Negative Urine Ketones Negative Urine Blood Negative Urine Nitrite Negative Urine Bilirubin Negative Urine Urobilinogen Negative Ur Leukocyte Esterase Negative Labs reviewed Assessment: 09/18/18 15:10 Withdrawal symptoms Plan: Continue detox Encouraged PO water intake
[2018-09-18] MEDS ORDERED: chlordiazePOXIDE HCL 25 MG CAPSULE PO SCH (17:00)
[2018-09-18] MEDS: diazePAM 5 MG TABLET PO PRN (19:39)
[2018-09-18] MEDS: THIAMINE HCL 100 MG TABLET (FP) PO SCH (22:41)
[2018-09-19] MEDS ORDERED: METHADONE HCL 40 MG DISPERSABLE TABLET ONE (04:22)
[2018-09-19] MEDS ORDERED: METHADONE HCL 10 MG TABLET ONE (04:23)
[2018-09-19] MEDS: METHADONE 40 MG, METHADONE 20 MG PO SCH (06:30)
[2018-09-19] MEDS: diazePAM 5 MG TABLET PO PRN (06:49)
--- NOTE | 2018-09-19 06:59 | PN ---
[facility] Progress Note Note: CLIENT SEEN HERE WANTS TO LEAVE. D/W CLIENT ABOUT RISKS OF INTERRUPTING TXMENT ABRUPTLY TO INCLUDE SEIZURES AND . CLIENT VERBALIZED HE IS AWARE AND ACCEPTS THE POSSIBLE CONSEQUENCES. 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 PURCHASE PRICE ANALYST OFFERED A LETTER OF TXMENT. CLIENT DECLINED. HE WAS ALSO ASKED IF HE WAS INFORMED ABOUT LOS OF TXMENT. HE VERBALIZED HE WAS AWARE BUT THOUGHT HIS JOB WOULD GIVE HIM THE TIME. CLIENT IS PRESENT A/O X3 NAD. NO WITHDRAWAL SX'S NOTED VISIBLY. OOB AMBULATING W/O DIFFICULTY. 149/97-85-20-T. 97.1
[2018-09-19 07:00] VITALS: BP 149/97; PULSE 85; TEMP 97
--- NOTE | 2018-09-19 07:02 | DS ---
[facility] Detox Discharge Summary Admission Date: 09/17/18 Discharge Date: 09/19/18 - History Present History: Alcohol Dependence, Cocaine Dependence Pertinent Past History: REPORTED HTN BPH NICOTINE DEP HLD MMTP - Physical Exam Results Vital Signs: Vital Signs Temperature 97.1 F L 09/18/18 23:29 Pulse Rate 95 H 09/18/18 23:29 Respiratory Rate 18 09/19/18 00:30 Blood Pressure 129/84 09/18/18 23:29 O2 Sat by Pulse Oximetry (%) Pertinent Admission Physical Exam Findings: WITHDRAWAL SX'S - Treatment Hospital Course: Discharged Condition Good Patient has Accepted a Rehab Referral to: [facility] AT THIS TIME - Medication Discharge Medications: Ambulatory Orders NK [No Known Home Medication] 09/17/18 - Diagnosis (1) Hypercholesteremia Current Visit: Yes Status: Suspected (2) Nicotine dependence Current Visit: Yes Status: Chronic Qualifiers: Nicotine product type: cigarettes Substance use status: in withdrawal Qualified Code(s): F17.213 - Nicotine dependence, cigarettes, with withdrawal (3) Alcohol dependence with uncomplicated withdrawal Current Visit: Yes Status: Acute (4) Cocaine dependence, uncomplicated Current Visit: Yes Status: Chronic (5) BPH (benign prostatic hyperplasia) Current Visit: Yes Status: Suspected Qualifiers: Lower urinary tract symptom presence: unspecified whether lower urinary tract symptoms present Qualified Code(s): N40.0 - Benign prostatic hyperplasia without lower urinary tract symptoms (6) HTN (hypertension) Current Visit: Yes Status: Suspected Qualifiers: Hypertension type: essential hypertension Qualified Code(s): I10 - Essential (primary) hypertension (7) Methadone maintenance therapy patient Current Visit: Yes Status: Chronic - AMA Did Patient Leave Against Medical Advice: Yes (STATES HE NEEDS TO RETURN TO WORK )
[2018-09-19] MEDS ORDERED: diazePAM 5 MG TABLET PO SCH (10:00)
--- NOTE | 2018-09-19 16:21 | DS ---
[facility] Detox Discharge Summary Admission Date: 09/17/18 Discharge Date: 09/19/18 - History Present History: Alcohol Dependence, Opioid Dependence, MMTP Additional Comments: Patient is A/A/Ox3, in nad, ambulatory. Patient decided to leave AMA despite encouragement from staff to complete detox. As per patient, he has no intention to stay and is ready to leave. Patient instructed to call 911 if feeling sick or withdrawal sxs and to see his PCP within 3 days. Pertinent Past History: BPH Chronic LBP HTN HLD Nicotine dependence Opioid dependence on agonist Alcohol dependence - Physical Exam Results Vital Signs: Vital Signs Temperature 97 F L 09/19/18 05:00 Pulse Rate 85 09/19/18 05:00 Respiratory Rate 20 09/19/18 05:00 Blood Pressure 149/97 09/19/18 05:00 O2 Sat by Pulse Oximetry (%) Pertinent Admission Physical Exam Findings: Withdrawal sxs Laboratory Tests 09/17/18 09/18/18 09/18/18 23:29 06:00 06:00 WBC 4.2 RBC 4.58 Hgb 12.6 Hct 39.5 MCV 86.1 MCH 27.4 MCHC 31.8 L RDW 14.4 Plt Count 215 MPV 8.7 Sodium 141 Potassium 4.3 Chloride 100 Carbon Dioxide 30 Anion Gap 10 BUN 16 Creatinine 1.0 Creat Clearance w eGFR > 60 Random Glucose 105 Calcium 9.2 Total Bilirubin 0.3 AST 13 L ALT 21 Alkaline Phosphatase 116 Total Protein 7.2 Albumin 3.8 Urine Color Yellow Urine Appearance Clear Urine pH 5.0 Ur Specific [place] 1.023 Urine Protein Negative Urine Glucose (UA) Negative Urine Ketones Negative Urine Blood Negative Urine Nitrite Negative Urine Bilirubin Negative Urine Urobilinogen Negative Ur Leukocyte Esterase Negative RPR Titer 09/18/18 06:00 WBC RBC Hgb Hct MCV MCH MCHC RDW Plt Count MPV Sodium Potassium Chloride Carbon Dioxide Anion Gap BUN Creatinine Creat Clearance w eGFR Random Glucose Calcium Total Bilirubin AST ALT Alkaline Phosphatase Total Protein Albumin Urine Color Urine Appearance Urine pH Ur Specific [place] Urine Protein Urine Glucose (UA) Urine Ketones Urine Blood Urine Nitrite Urine Bilirubin Urine Urobilinogen Ur Leukocyte Esterase RPR Titer Nonreactive Labs reviewed - Medication Discharge Medications: Ambulatory Orders NK [No Known Home Medication] 09/17/18 - Diagnosis (1) Lower back pain Status: Chronic (2) Nicotine dependence Status: Chronic Qualifiers: Nicotine product type: cigarettes Substance use status: in withdrawal Qualified Code(s): F17.213 - Nicotine dependence, cigarettes, with withdrawal (3) Hypercholesteremia Status: Suspected (4) Opioid dependence on agonist therapy Status: Chronic (5) Alcohol dependence with uncomplicated withdrawal Status: Acute (6) BPH (benign prostatic hyperplasia) Status: Chronic Qualifiers: Lower urinary tract symptom presence: unspecified whether lower urinary tract symptoms present Qualified Code(s): N40.0 - Benign prostatic hyperplasia without lower urinary tract symptoms (7) HTN (hypertension) Status: Chronic Qualifiers: Hypertension type: essential hypertension Qualified Code(s): I10 - Essential (primary) hypertension - AMA Did Patient Leave Against Medical Advice: Yes (Instructed to call 911 if feeling sick or withdrawal sxs)
[2018-09-19] MEDS ORDERED: chlordiazePOXIDE 5 MG CAPSULE PO SCH (17:00)
[2018-09-20] MEDS ORDERED: chlordiazePOXIDE HCL 10 MG CAPSULE PO SCH (17:00)
[2018-09-21] MEDS ORDERED: diazePAM 5 MG TABLET PO SCH (10:00)
== END 2018-09-19 08:28 | disposition left against medical advice (07) | DRG 770 ==
LOC: YASAS 10:15 → Y3N 11:25
PROC: HZ2ZZZZ Detoxification Services for Substance Abuse Treatment (ICD-10-PCS; principal; 2018-09-17)
DX: F10.230 Alcohol dependence with withdrawal, uncomplicated (principal); F14.20 Cocaine dependence, uncomplicated; F11.20 Opioid dependence, uncomplicated; F17.210 Nicotine dependence, cigarettes, uncomplicated; I10 Essential (primary) hypertension; N40.0 Benign prostatic hyperplasia without lower urinary tract symptoms; E78.00 Pure hypercholesterolemia, unspecified; M54.5 Low back pain; Z87.828 Personal history of other (healed) physical injury and trauma
CPT/HCPCS: 36415; 80053; 81003; 85027; 86593; 93005; 93010

== ENCOUNTER 2018-10-29 09:25 | Inpatient (IN) | payer OTHER ==
[2018-10-29 09:53] VITALS: BMI 35.2
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
[2018-10-29] MEDS ORDERED: MAGNESIUM CITRATE 300 ML BOTTLE PO PRN (12:31)
[2018-10-29] MEDS ORDERED: MAG HYDROX/AL HYDROX/SIMETH 30 ML UNIT-DOSE CUP PO PRN (12:31)
[2018-10-29] MEDS ORDERED: MAGNESIUM HYDROX 2400MG/30ML ORAL SUSPENSION 30 ML CUP PO PRN (12:31)
[2018-10-29] MEDS ORDERED: MENTHOL/PHENOL 1 EACH UD MM PRN (12:31)
[2018-10-29] MEDS ORDERED: P-EPHED 60MG/TRIPROLIDI 2.5MG TABLET PO PRN (12:31)
[2018-10-29] MEDS ORDERED: IBUPROFEN 400 MG TABLET (FP) PO PRN (12:31)
[2018-10-29] MEDS ORDERED: chlordiazePOXIDE HCL 25 MG CAPSULE PO PRN (12:31)
[2018-10-29] MEDS ORDERED: guaiFENesin/D-METHORPHAN HB 10 ML UNIT-DOSE CUPS PO PRN (12:31)
[2018-10-29] MEDS ORDERED: NICOTINE POLACRILEX 2 MG GUM BUC PRN (12:31)
[2018-10-29] MEDS ORDERED: ACETAMINOPHEN 325 MG TABLET (FP) PO PRN (12:31)
[2018-10-29] MEDS: chlordiazePOXIDE HCL 25 MG CAPSULE PO SCH ×2 (17:08→22:18)
[2018-10-29] MEDS ORDERED: MELATONIN 5 MG TABLETS PO PRN (22:00)
[2018-10-29] MEDS: THIAMINE HCL 100 MG TABLET (FP) PO SCH (22:17)
[2018-10-30] MEDS ORDERED: METHADONE HCL 40 MG DISPERSABLE TABLET ONE (05:11)
[2018-10-30] MEDS ORDERED: METHADONE HCL 10 MG TABLET ONE (05:12)
[2018-10-30] MEDS ORDERED: METHADONE HCL 10 MG TABLET PO SCH (06:00)
[2018-10-30] MEDS ORDERED: ONDANSETRON *ODT* 4 MG TABLET SL ONE (06:55)
--- NOTE | 2018-10-30 06:57 | PN ---
[facility] Progress Note Note: Patient complained of nausea. No vomiting at this time Vital Signs Temperature 97.5 F L 10/29/18 21:42 Pulse Rate 105 H 10/29/18 21:42 Respiratory Rate 18 10/30/18 03:30 Blood Pressure 127/95 10/29/18 21:42 O2 Sat by Pulse Oximetry (%) Action: Zofran 4mg SL ordered
[2018-10-30] MEDS: chlordiazePOXIDE HCL 25 MG CAPSULE PO SCH (07:19)
[2018-10-30] MEDS: METHADONE 40 MG, METHADONE 20 MG PO SCH (07:19)
[2018-10-30] MEDS ORDERED: diazePAM 5 MG TABLET PO PRN (09:17)
--- NOTE | 2018-10-30 09:23 | PN ---
S CIWA - CIWA Score Nausea/Vomitin-No Nausea/No Vomiting Muscle Tremors: 4-Moderate,w/Arms Extend Anxiety: 4-Mod. Anxious/Guarded Agitation: 4-Moderately Restless Paroxysmal Sweats: 3 Orientation: 0-Oriented Tacttile Disturbances: 0-None Auditory Disturbances: 0-None Visual Disturbances: 0-None Headache: 0-None Present CIWA-Ar Total Score: 15 BHS Progress Note (SOAP) Subjective: I want valium instead of librium for my detox sweats shakes irritable jock itch between my thighs Objective: 10/30/18 09:51 Vital Signs Temperature 98.4 F 10/30/18 09:16 Pulse Rate 93 H 10/30/18 09:16 Respiratory Rate 18 10/30/18 09:16 Blood Pressure 130/93 10/30/18 09:16 O2 Sat by Pulse Oximetry (%) labs pending aaox3 ambulating no acute distress Assessment: 10/30/18 09:52 withdrawal sx Plan: continue detox increase fluids libirum d/c; valium ordered as per pt request
[2018-10-30 09:59] LABS: HEMATOCRIT 39.6 % (35.4-49); HEMOGLOBIN 12.3 GM/dL (11.7-16.9); MCH 26.8 pg (25.7-33.7); MCHC 31.1 g/dl (32.0-35.9); MEAN CELL VOLUME 86.1 fl (80-96); MEAN PLT VOLUME 8.9 fl (7.5-11.1); PLATELET COUNT 235 K/MM3 (134-434); RDW 14.9 % (11.9-15.9); WHITE BLOOD COUNT 4.6 K/mm3 (4.0-10.0)
[2018-10-30] MEDS: PRENATAL VITAMINS W/ FOLIC ACID TABLET (FP) PO SCH (10:32)
[2018-10-30] MEDS: NYSTATIN 100,000 UNIT/GM TOPICAL CREAM 15 GM TUBE TP SCH ×2 (10:42→22:28)
[2018-10-30 11:40] LABS: ALBUMIN 3.4 g/dl (3.4-5.0); ALK PHOS 114 U/L (45-117); ANION GAP 7 MMOL/L (8-16); BILIRUBIN,TOTAL 0.2 mg/dL (0.2-1); BLOOD UREA NITROGEN 20 mg/dL (7-18); CALCIUM 8.6 mg/dL (8.5-10.1); CHLORIDE 102 mmol/L (98-107); CO2 29 mmol/L (21-32); CREATININE 1.2 mg/dL (0.55-1.3); GLUCOSE,RANDOM 91 mg/dL (74-106); POTASSIUM 4.1 mmol/L (3.5-5.1); SGOT/AST 17 U/L (15-37); SGPT/ALT 26 U/L (13-61); SODIUM 138 mmol/L (136-145); TOT PROT 6.8 g/dl (6.4-8.2)
[2018-10-30] MEDS: diazePAM 5 MG TABLET PO SCH ×2 (14:56→22:28)
[2018-10-30] MEDS ORDERED: chlordiazePOXIDE HCL 25 MG CAPSULE PO SCH (17:00)
[2018-10-30] MEDS: THIAMINE HCL 100 MG TABLET (FP) PO SCH (22:29)
[2018-10-31] MEDS ORDERED: METHADONE HCL 40 MG DISPERSABLE TABLET ONE (04:51)
[2018-10-31] MEDS ORDERED: METHADONE HCL 10 MG TABLET ONE (04:52)
[2018-10-31] MEDS: diazePAM 5 MG TABLET PO SCH (07:03)
[2018-10-31] MEDS: METHADONE 40 MG, METHADONE 20 MG PO SCH (07:03)
[2018-10-31] MEDS: PRENATAL VITAMINS W/ FOLIC ACID TABLET (FP) PO SCH (10:28)
[2018-10-31] MEDS: NYSTATIN 100,000 UNIT/GM TOPICAL CREAM 15 GM TUBE TP SCH (10:28)
--- NOTE | 2018-10-31 12:21 | PN ---
S CIWA - CIWA Score Nausea/Vomitin-No Nausea/No Vomiting Muscle Tremors: 4-Moderate,w/Arms Extend Anxiety: 3 Agitation: 3 Paroxysmal Sweats: 2 Orientation: 0-Oriented Tacttile Disturbances: 0-None Auditory Disturbances: 0-None Visual Disturbances: 0-None Headache: 0-None Present CIWA-Ar Total Score: 12 BHS Progress Note (SOAP) Subjective: anxious sweats interrupted sleep agitation Objective: 10/31/18 12:21 Vital Signs Temperature 98.1 F 10/31/18 09:21 Pulse Rate 93 H 10/31/18 09:21 Respiratory Rate 18 10/31/18 09:21 Blood Pressure 121/83 10/31/18 09:21 O2 Sat by Pulse Oximetry (%) Laboratory Tests 10/30/18 10/30/18 10/30/18 05:45 05:45 05:45 WBC 4.6 RBC 4.60 Hgb 12.3 Hct 39.6 MCV 86.1 MCH 26.8 MCHC 31.1 L RDW 14.9 Plt Count 235 MPV 8.9 Sodium 138 Potassium 4.1 Chloride 102 Carbon Dioxide 29 Anion Gap 7 L BUN 20 H Creatinine 1.2 Creat Clearance w eGFR > 60 Random Glucose 91 Calcium 8.6 Total Bilirubin 0.2 AST 17 ALT 26 Alkaline Phosphatase 114 Total Protein 6.8 Albumin 3.4 RPR Titer Nonreactive aaox3 ambulating no acute distress Assessment: 10/31/18 12:21 withdrawal sx Plan: continue detox increase fluids
[2018-10-31 14:10] VITALS: BP 132/73; PULSE 106; TEMP 97.9
--- NOTE | 2018-10-31 14:23 | PN ---
[facility] Progress Note Note: pt was found smoking in his room x 2. pt was contracted to obey to rules and policy of the hospital and unit but pt failed to do so. a multi disciplinary efforts were discussed with patient and agreement made pt will be discharged from the unit and premises for safety issue to other members of the unit as well as the hospital security called and pt escorted off the unit.
--- NOTE | 2018-10-31 14:25 | DS ---
[facility] Detox Discharge Summary Admission Date: 10/29/18 - History Present History: Alcohol Dependence - Physical Exam Results Vital Signs: Vital Signs Temperature 97.9 F 10/31/18 13:55 Pulse Rate 106 H 10/31/18 13:55 Respiratory Rate 18 10/31/18 13:55 Blood Pressure 132/73 10/31/18 13:55 O2 Sat by Pulse Oximetry (%) - Treatment Hospital Course: Discharged Condition Good - Medication Discharge Medications: Ambulatory Orders NK [No Known Home Medication] 09/17/18 - Diagnosis (1) Alcohol dependence with uncomplicated withdrawal Current Visit: Yes Status: Chronic (2) Sedative, hypnotic or anxiolytic dependence, uncomplicated Current Visit: No Status: Acute (3) BPH (benign prostatic hyperplasia) Current Visit: No Status: Chronic Qualifiers: Lower urinary tract symptom presence: unspecified whether lower urinary tract symptoms present Qualified Code(s): N40.0 - Benign prostatic hyperplasia without lower urinary tract symptoms (4) Cannabis abuse Current Visit: No Status: Chronic (5) Cocaine dependence, uncomplicated Current Visit: Yes Status: Chronic (6) HTN (hypertension) Current Visit: Yes Status: Chronic Qualifiers: Hypertension type: essential hypertension Qualified Code(s): I10 - Essential (primary) hypertension (7) Nicotine dependence Current Visit: Yes Status: Chronic Qualifiers: Nicotine product type: cigarettes Substance use status: in withdrawal Qualified Code(s): F17.213 - Nicotine dependence, cigarettes, with withdrawal (8) Pain management Current Visit: No Status: Chronic (9) Drug-induced mood disorder Current Visit: No Status: Suspected (10) Hypercholesteremia Current Visit: No Status: Suspected - AMA Did Patient Leave Against Medical Advice: No (involuntary discharge)
[2018-10-31] MEDS ORDERED: chlordiazePOXIDE 5 MG CAPSULE PO SCH (17:00)
[2018-11-01] MEDS ORDERED: diazePAM 5 MG TABLET PO SCH (10:00)
[2018-11-01] MEDS ORDERED: chlordiazePOXIDE HCL 10 MG CAPSULE PO SCH (17:00)
[2018-11-03] MEDS ORDERED: diazePAM 5 MG TABLET PO SCH (10:00)
== END 2018-10-31 13:58 | disposition left against medical advice (07) | DRG 773 ==
LOC: YASAS 09:25 → Y6N 13:00
PROC: HZ2ZZZZ Detoxification Services for Substance Abuse Treatment (ICD-10-PCS; principal; 2018-10-29)
DX: F10.230 Alcohol dependence with withdrawal, uncomplicated (principal); F11.20 Opioid dependence, uncomplicated; F13.230 Sedative, hypnotic or anxiolytic dependence with withdrawal, uncomplicated; F14.20 Cocaine dependence, uncomplicated; F12.10 Cannabis abuse, uncomplicated; F17.213 Nicotine dependence, cigarettes, with withdrawal; F19.24 Other psychoactive substance dependence with psychoactive substance-induced mood disorder; F91.8 Other conduct disorders; N40.0 Benign prostatic hyperplasia without lower urinary tract symptoms
CPT/HCPCS: 36415; 80053; 85027; 86593

== ENCOUNTER 2019-03-03 11:03 | Inpatient (IN) | payer OTHER ==
[2019-03-03 13:30] VITALS: BMI 35.2
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
[2019-03-03] MEDS ORDERED: MENTHOL/PHENOL 1 EACH UD MM PRN (14:22)
[2019-03-03] MEDS ORDERED: MELATONIN 5 MG TABLETS PO PRN (14:22)
[2019-03-03] MEDS ORDERED: BISMUTH SUBSALICYLATE 262 MG/15 ML BTL PO PRN (14:22)
[2019-03-03] MEDS ORDERED: hydrOXYzine PAMOATE 25 MG CAPSULE (FP) PO PRN (14:22)
[2019-03-03] MEDS ORDERED: METHOCARBAMOL 500 MG TABLET PO PRN (14:22)
[2019-03-03] MEDS ORDERED: MAG HYDROX/AL HYDROX/SIMETH 30 ML UNIT-DOSE CUP PO PRN (14:22)
[2019-03-03] MEDS ORDERED: MAGNESIUM CITRATE 300 ML BOTTLE PO PRN (14:22)
[2019-03-03] MEDS ORDERED: ACETAMINOPHEN 325 MG TABLET (FP) PO PRN ×2 (14:22)
[2019-03-03] MEDS ORDERED: MAGNESIUM HYDROX 2400MG/30ML ORAL SUSPENSION 30 ML CUP PO PRN (14:22)
[2019-03-03] MEDS ORDERED: IBUPROFEN 400 MG TABLET (FP) PO PRN (14:22)
[2019-03-03] MEDS: diazePAM 5 MG TABLET PO PRN (15:22)
[2019-03-03 18:27] LABS: HEMATOCRIT 36.5 % (35.4-49); MCH 28.5 pg (25.7-33.7); MCHC 32.9 g/dl (32.0-35.9); MEAN CELL VOLUME 86.5 fl (80-96); MEAN PLT VOLUME 8.2 fl (7.5-11.1); PLATELET COUNT 229 K/MM3 (134-434); RBC 4.22 M/mm3 (4.00-5.60); RDW 14.6 % (11.9-15.9); WHITE BLOOD COUNT 4.7 K/mm3 (4.0-10.0)
[2019-03-03 18:29] LABS: URINE APPEARANCE CLEAR; URINE BILIRUBIN NEGATIVE (NEGATIVE); URINE COLOR YELLOW; URINE GLUCOSE (UA) NEGATIVE (NEGATIVE); URINE KETONE NEGATIVE (NEGATIVE); URINE LEUK ESTERASE NEGATIVE (NEGATIVE); URINE NITRITE NEGATIVE (NEGATIVE); URINE PROTEIN NEGATIVE (NEGATIVE)
[2019-03-03 18:39] LABS: ALBUMIN 3.5 g/dl (3.4-5.0); ALK PHOS 111 U/L (45-117); ANION GAP 6 MMOL/L (8-16); BILIRUBIN,TOTAL 0.2 mg/dL (0.2-1); BLOOD UREA NITROGEN 17 mg/dL (7-18); CALCIUM 9.4 mg/dL (8.5-10.1); CHLORIDE 102 mmol/L (98-107); CO2 31 mmol/L (21-32); CREATININE 1.1 mg/dL (0.55-1.3); GLUCOSE,RANDOM 101 mg/dL (74-106); POTASSIUM 4.2 mmol/L (3.5-5.1); SGOT/AST 13 U/L (15-37); SGPT/ALT 21 U/L (13-61); SODIUM 138 mmol/L (136-145); TOT PROT 6.8 g/dl (6.4-8.2)
[2019-03-03] MEDS ORDERED: THIAMINE HCL 100 MG TABLET (FP) PO SCH (22:00)
[2019-03-03] MEDS: diazePAM 5 MG TABLET PO SCH (22:03)
[2019-03-04] MEDS: diazePAM 5 MG TABLET PO SCH ×2 (06:12→14:21)
[2019-03-04] MEDS ORDERED: METHADONE HCL 40 MG DISPERSABLE TABLET PO SCH (07:30)
[2019-03-04] MEDS ORDERED: PRENATAL VITAMINS W/ FOLIC ACID TABLET (FP) PO SCH (10:00)
[2019-03-04] MEDS: diazePAM 5 MG TABLET PO PRN (12:07)
--- NOTE | 2019-03-04 12:38 | EKG ---
Test Reason : Blood Pressure : / mmHG Vent. Rate : 064 BPM Atrial Rate : 064 BPM P-R Int : 170 ms QRS Dur : 116 ms QT Int : 454 ms P-R-T Axes : 028 -36 002 degrees QTc Int : 468 ms NORMAL SINUS RHYTHM LEFT AXIS DEVIATION ABNORMAL ECG Confirmed by MD KEYA, NOE ([id number]) on 03/04/2019 12:38:43 PM Referred By: Confirmed By:NOE LAURA MD
--- NOTE | 2019-03-04 16:29 | PN ---
[facility] CIWA - CIWA Score Nausea/Vomitin-No Nausea/No Vomiting Muscle Tremors: 3 Anxiety: 4-Mod. Anxious/Guarded Agitation: 3 Paroxysmal Sweats: 3 Orientation: 0-Oriented Tacttile Disturbances: 1-Very Mild Itch/Numbness Auditory Disturbances: 0-None Visual Disturbances: 1-Very Mild Sensitivity Headache: 0-None Present CIWA-Ar Total Score: 15 BHS Progress Note (SOAP) Subjective: Sweating, Anxious, Tremors. Objective: PATIENT A & O X 3, OBSERVED AMBULATING ON UNIT UNASSISTED. IN NO ACUTE DISTRESS. 03/04/19 16:23 Vital Signs Temperature 98.2 F 03/04/19 13:26 Pulse Rate 86 03/04/19 13:26 Respiratory Rate 18 03/04/19 13:26 Blood Pressure 155/90 03/04/19 13:26 O2 Sat by Pulse Oximetry (%) Laboratory Tests 03/03/19 03/03/19 03/03/19 14:30 14:30 14:30 WBC 4.7 RBC 4.22 Hgb 12.0 Hct 36.5 MCV 86.5 MCH 28.5 MCHC 32.9 RDW 14.6 Plt Count 229 MPV 8.2 Sodium 138 Potassium 4.2 Chloride 102 Carbon Dioxide 31 Anion Gap 6 L BUN 17 Creatinine 1.1 Creat Clearance w eGFR 67.83 Random Glucose 101 Calcium 9.4 Total Bilirubin 0.2 AST 13 L ALT 21 Alkaline Phosphatase 111 Total Protein 6.8 Albumin 3.5 Urine Color Urine Appearance Urine pH Ur Specific [place] Urine Protein Urine Glucose (UA) Urine Ketones Urine Blood Urine Nitrite Urine Bilirubin Urine Urobilinogen Ur Leukocyte Esterase RPR Titer Nonreactive 03/03/19 14:30 WBC RBC Hgb Hct MCV MCH MCHC RDW Plt Count MPV Sodium Potassium Chloride Carbon Dioxide Anion Gap BUN Creatinine Creat Clearance w eGFR Random Glucose Calcium Total Bilirubin AST ALT Alkaline Phosphatase Total Protein Albumin Urine Color Yellow Urine Appearance Clear Urine pH 5.0 Ur Specific [place] 1.026 Urine Protein Negative Urine Glucose (UA) Negative Urine Ketones Negative Urine Blood Negative Urine Nitrite Negative Urine Bilirubin Negative Urine Urobilinogen 1.0 Ur Leukocyte Esterase Negative RPR Titer LABS NOTED. Assessment: 03/04/19 16:23 WITHDRAWAL SYMPTOMS. Plan: CONTINUE DETOX. DURING AM, PATIENT APPROACHED DANDY TENDER REPORTING CHEST PAIN AFFECTING LEFT SIDE OF CHEST. CHEST PAIN IS DULL ACHING IN QULAITY AND AFFECTS PRIMARILY LEFT SIDE OF CHEST WITH NO RADIATION DOWN LEFT ARM, TO BACK, OR TO NECK. PATIENT REPORTS SIMILAR HISTORY OF INTERMITTENT CHEST PAIN (USUALLY LASTING ONLY A FEW MINUTES AT A TIME) OVER THE LAST FEW WEEKS. PATIENT REPORTS HISTORY OF CARDIAC MURMUR, BUT DENIES ANY OTHER KNOWN HISTORY OF CARDIOVASCULAR DISEASE, INCLUDING HTN. STAT ECG ORDERED. RESULTS NOTED: 'NORMAL SINUS RHYTHM WITH LEFT AXIS DEVIATION.' PATIENT ALSO REPORTS HISTORY OF ACID REFLUX. PATIENT ALSO REPORTED THAT CHEST PAIN HAD DIMINISHED BY THE TIME THAT THE ECG HAD BEEN COMPLETED. PATIENT ADVISED TO FOLLOW-UP WITH METAL SPINNER AFTER DISCHARGE FROM DETOX UNIT FOR FURTHER EVALUATION AND TO IMMEDIATELY NOTIFY MEDICAL / NURSING STAFF SHOULD CHEST PAIN OCCUR AGAIN AT ANY TIME. PRN MYLANTA PO RECOMMENDED FOR POSSIBLE ACID REFLUX. PATIENT VERBALIZED UNDERSTANDING OF ALL RECOMMENDATIONS PRESENTED TO HIM TODAY. WILL CONTINUE TO MONITOR BP.
--- NOTE | 2019-03-04 18:11 | PN ---
S Progress Note Note: Patient left AMA, did not wait for provider.
--- NOTE | 2019-03-04 18:13 | DS ---
[facility] Detox Discharge Summary Admission Date: 03/03/19 Discharge Date: 03/04/19 - History Present History: Alcohol Dependence, Sedative Dependence, MMTP Additional Comments: Patient left AMA. Follow up with attached referrals. Pertinent Past History: Vital Signs Temperature 98.2 F 03/04/19 13:26 Pulse Rate 86 03/04/19 13:26 Respiratory Rate 18 03/04/19 13:26 Blood Pressure 155/90 03/04/19 13:26 O2 Sat by Pulse Oximetry (%) Vital Signs Temperature 98.2 F 03/04/19 13:26 Pulse Rate 86 03/04/19 13:26 Respiratory Rate 18 03/04/19 13:26 Blood Pressure 155/90 03/04/19 13:26 O2 Sat by Pulse Oximetry (%) Laboratory Last Values WBC 4.7 K/mm3 (4.0-10.0) 03/03/19 14:30 RBC 4.22 M/mm3 (4.00-5.60) 03/03/19 14:30 Hgb 12.0 GM/dL (11.7-16.9) 03/03/19 14:30 Hct 36.5 % (35.4-49) 03/03/19 14:30 MCV 86.5 fl (80-96) 03/03/19 14:30 MCH 28.5 pg (25.7-33.7) 03/03/19 14:30 MCHC 32.9 g/dl (32.0-35.9) 03/03/19 14:30 RDW 14.6 % (11.9-15.9) 03/03/19 14:30 Plt Count 229 K/MM3 (134-434) 03/03/19 14:30 MPV 8.2 fl (7.5-11.1) 03/03/19 14:30 Sodium 138 mmol/L (136-145) 03/03/19 14:30 Potassium 4.2 mmol/L (3.5-5.1) 03/03/19 14:30 Chloride 102 mmol/L (98-107) 03/03/19 14:30 Carbon Dioxide 31 mmol/L (21-32) 03/03/19 14:30 Anion Gap 6 MMOL/L (8-16) L 03/03/19 14:30 BUN 17 mg/dL (7-18) 03/03/19 14:30 Creatinine 1.1 mg/dL (0.55-1.3) 03/03/19 14:30 Creat Clearance w eGFR 67.83 (>60) 03/03/19 14:30 Random Glucose 101 mg/dL (74-106) 03/03/19 14:30 Calcium 9.4 mg/dL (8.5-10.1) 03/03/19 14:30 Total Bilirubin 0.2 mg/dL (0.2-1) 03/03/19 14:30 AST 13 U/L (15-37) L 03/03/19 14:30 ALT 21 U/L (13-61) 03/03/19 14:30 Alkaline Phosphatase 111 U/L (45-117) 03/03/19 14:30 Total Protein 6.8 g/dl (6.4-8.2) 03/03/19 14:30 Albumin 3.5 g/dl (3.4-5.0) 03/03/19 14:30 Urine Color Yellow 03/03/19 14:30 Urine Appearance Clear 03/03/19 14:30 Urine pH 5.0 (5.0-8.0) 03/03/19 14:30 Ur Specific [place] 1.026 (1.010-1.035) 03/03/19 14:30 Urine Protein Negative (NEGATIVE) 03/03/19 14:30 Urine Glucose (UA) Negative (NEGATIVE) 03/03/19 14:30 Urine Ketones Negative (NEGATIVE) 03/03/19 14:30 Urine Blood Negative (NEGATIVE) 03/03/19 14:30 Urine Nitrite Negative (NEGATIVE) 03/03/19 14:30 Urine Bilirubin Negative (NEGATIVE) 03/03/19 14:30 Urine Urobilinogen 1.0 mg/dL (0.2-1.0) 03/03/19 14:30 Ur Leukocyte Esterase Negative (NEGATIVE) 03/03/19 14:30 RPR Titer Nonreactive (NONREACTIVE) 03/03/19 14:30 - Physical Exam Results Vital Signs: Vital Signs Temperature 98.2 F 03/04/19 13:26 Pulse Rate 86 03/04/19 13:26 Respiratory Rate 18 03/04/19 13:26 Blood Pressure 155/90 03/04/19 13:26 O2 Sat by Pulse Oximetry (%) - Treatment Hospital Course: Discharged Condition Good - Medication Discharge Medications: Ambulatory Orders NK [No Known Home Medication] 09/17/18 - Diagnosis (1) Methadone maintenance therapy patient Current Visit: Yes Status: Acute (2) Sedative, hypnotic or anxiolytic dependence, uncomplicated Current Visit: Yes Status: Acute (3) BPH (benign prostatic hyperplasia) Current Visit: No Status: Chronic Qualifiers: Lower urinary tract symptom presence: unspecified whether lower urinary tract symptoms present Qualified Code(s): N40.0 - Benign prostatic hyperplasia without lower urinary tract symptoms (4) Cocaine dependence, uncomplicated Current Visit: Yes Status: Chronic (5) HTN (hypertension) Current Visit: Yes Status: Chronic Qualifiers: Hypertension type: essential hypertension Qualified Code(s): I10 - Essential (primary) hypertension (6) Nicotine dependence Current Visit: No Status: Chronic Qualifiers: Nicotine product type: cigarettes Substance use status: in withdrawal Qualified Code(s): F17.213 - Nicotine dependence, cigarettes, with withdrawal (7) Hypercholesteremia Current Visit: Yes Status: Suspected - AMA Did Patient Leave Against Medical Advice: Yes
[2019-03-04 18:18] VITALS: BP 136/78; PULSE 71; TEMP 98.4
[2019-03-05] MEDS ORDERED: diazePAM 5 MG TABLET PO SCH (10:00)
[2019-03-06] MEDS ORDERED: diazePAM 5 MG TABLET PO SCH (06:00)
== END 2019-03-04 18:20 | disposition left against medical advice (07) | DRG 770 ==
LOC: YASAS 11:03 → Y3N 14:44
PROVIDERS: ADMIT Surgery; ATTEND Surgery
PROC: HZ2ZZZZ Detoxification Services for Substance Abuse Treatment (ICD-10-PCS; principal; 2019-03-03)
DX: F13.230 Sedative, hypnotic or anxiolytic dependence with withdrawal, uncomplicated (principal); F11.20 Opioid dependence, uncomplicated; F14.20 Cocaine dependence, uncomplicated; F17.213 Nicotine dependence, cigarettes, with withdrawal; I10 Essential (primary) hypertension; N40.0 Benign prostatic hyperplasia without lower urinary tract symptoms; E78.00 Pure hypercholesterolemia, unspecified; K21.9 Gastro-esophageal reflux disease without esophagitis; R01.1 Cardiac murmur, unspecified; R07.9 Chest pain, unspecified
CPT/HCPCS: 36415; 80053; 81003; 85027; 86593; 93005; 93010

== ENCOUNTER 2019-04-02 12:10 | Inpatient (IN) | payer OTHER | END 2019-04-04 10:00 | disposition home or self-care (01) | LOC: YASAS 12:10 → Y3N 16:07 ==

== ENCOUNTER 2019-05-24 11:17 | Inpatient (IN) | payer OTHER ==
[2019-05-24 13:22] VITALS: BMI 34.2
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
[2019-05-24] MEDS ORDERED: hydrOXYzine PAMOATE 25 MG CAPSULE (FP) PO PRN (15:06)
[2019-05-24] MEDS ORDERED: MAGNESIUM CITRATE 300 ML BOTTLE PO PRN (15:06)
[2019-05-24] MEDS ORDERED: MAG HYDROX/AL HYDROX/SIMETH 30 ML UNIT-DOSE CUP PO PRN (15:06)
[2019-05-24] MEDS ORDERED: IBUPROFEN 400 MG TABLET (FP) PO PRN (15:06)
[2019-05-24] MEDS ORDERED: chlordiazePOXIDE HCL 25 MG CAPSULE PO PRN (15:06)
[2019-05-24] MEDS ORDERED: METHOCARBAMOL 500 MG TABLET PO PRN (15:06)
[2019-05-24] MEDS ORDERED: MENTHOL/PHENOL 1 EACH UD MM PRN (15:06)
[2019-05-24] MEDS ORDERED: BISMUTH SUBSALICYLATE 524 MG/30 ML UD PO PRN (15:06)
[2019-05-24] MEDS ORDERED: ACETAMINOPHEN 325 MG TABLET (FP) PO PRN ×2 (15:06)
[2019-05-24] MEDS ORDERED: MAGNESIUM HYDROX 2400MG/30ML ORAL SUSPENSION 30 ML CUP PO PRN (15:06)
[2019-05-24] MEDS ORDERED: MELATONIN 5 MG TABLETS PO PRN (15:06)
[2019-05-24] MEDS: NICOTINE 21 MG/24 HOURS TOPICAL PATCH TD SCH (17:37)
[2019-05-24] MEDS: LIDOCAINE 5% TOPICAL PATCH TP SCH (17:37)
[2019-05-24] MEDS: chlordiazePOXIDE HCL 25 MG CAPSULE PO SCH ×2 (17:38→22:48)
[2019-05-24] MEDS: LIDOCAINE PATCH REMOVAL MC SCH (22:48)
[2019-05-24] MEDS: THIAMINE HCL 100 MG TABLET (FP) PO SCH (22:48)
[2019-05-25] MEDS ORDERED: METHADONE HCL 40 MG DISPERSABLE TABLET ONE (04:10)
[2019-05-25] MEDS ORDERED: METHADONE HCL 10 MG TABLET ONE (04:10)
[2019-05-25] MEDS ORDERED: METHADONE HCL 10 MG TABLET PO ONE (06:00)
[2019-05-25] MEDS ORDERED: METHADONE 80 MG, METHADONE 10 MG PO ONE (06:00)
[2019-05-25] MEDS: chlordiazePOXIDE HCL 25 MG CAPSULE PO SCH ×4 (07:38→22:13)
[2019-05-25 10:14] LABS: ALBUMIN 3.2 g/dl (3.4-5.0); BILIRUBIN,TOTAL 0.2 mg/dL (0.2-1); BLOOD UREA NITROGEN 16.1 mg/dL (7-18); CALCIUM 8.8 mg/dL (8.5-10.1); CREATININE 1.1 mg/dL (0.55-1.3); POTASSIUM 3.6 mmol/L (3.5-5.1); TOT PROT 6.3 g/dl (6.4-8.2)
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
[2019-05-25 10:27] LABS: HEMOGLOBIN 11.8 GM/dL (11.7-16.9); MCH 27.6 pg (25.7-33.7); MCHC 32.8 g/dl (32.0-35.9); MEAN CELL VOLUME 84.3 fl (80-96); MEAN PLT VOLUME 7.9 fl (7.5-11.1); RBC 4.27 M/mm3 (4.00-5.60); RDW 14.5 % (11.9-15.9); WHITE BLOOD COUNT 3.2 K/mm3 (4.0-10.0)
[2019-05-25] MEDS: LIDOCAINE 5% TOPICAL PATCH TP SCH (10:27)
[2019-05-25] MEDS: NICOTINE 21 MG/24 HOURS TOPICAL PATCH TD SCH (10:28)
[2019-05-25] MEDS: PRENATAL VITAMINS W/ FOLIC ACID TABLET (FP) PO SCH (10:28)
[2019-05-25 10:40] LABS: PLATELET COUNT 207 K/MM3 (134-434)
--- NOTE | 2019-05-25 11:27 | PN ---
[facility] CIWA - CIWA Score Nausea/Vomitin-Mild Nausea/No Vomiting Muscle Tremors: 2 Anxiety: 3 Agitation: 2 Paroxysmal Sweats: 1-Minimal Palms Moist Orientation: 0-Oriented Tacttile Disturbances: 1-Very Mild Itch/Numbness Auditory Disturbances: 0-None Visual Disturbances: 0-None Headache: 0-None Present CIWA-Ar Total Score: 10 S Progress Note (SOAP) Subjective: 63 years old male admitted on 05/24/19 for alcohol withdrawal sx medical history of hypertension hyperlipidemia and bph no pharmacotherapy regimen received clonazepin 2mg po daily last 30 days supply filled on 04/29/19 oxycodon 10-325mg po tid lst 30 days filled 04/23/19 ptiennt is in methadone program at 90 mg po daily verification needed Objective: 05/25/19 11:31 Vital Signs Temperature 97.3 F L 05/25/19 09:25 Pulse Rate 89 05/25/19 09:25 Respiratory Rate 18 05/25/19 09:25 Blood Pressure 157/93 05/25/19 09:25 O2 Sat by Pulse Oximetry (%) Laboratory Last Values WBC 3.2 K/mm3 (4.0-10.0) L 05/25/19 07:50 RBC 4.27 M/mm3 (4.00-5.60) 05/25/19 07:50 Hgb 11.8 GM/dL (11.7-16.9) 05/25/19 07:50 Hct 36.0 % (35.4-49) 05/25/19 07:50 MCV 84.3 fl (80-96) 05/25/19 07:50 MCH 27.6 pg (25.7-33.7) 05/25/19 07:50 MCHC 32.8 g/dl (32.0-35.9) 05/25/19 07:50 RDW 14.5 % (11.9-15.9) 05/25/19 07:50 Plt Count 207 K/MM3 (134-434) D 05/25/19 07:50 MPV 7.9 fl (7.5-11.1) 05/25/19 07:50 Sodium 141 mmol/L (136-145) 05/25/19 07:50 Potassium 3.6 mmol/L (3.5-5.1) 05/25/19 07:50 Chloride 102 mmol/L (98-107) 05/25/19 07:50 Carbon Dioxide 31 mmol/L (21-32) 05/25/19 07:50 Anion Gap 7 MMOL/L (8-16) L 05/25/19 07:50 BUN 16.1 mg/dL (7-18) 05/25/19 07:50 Creatinine 1.1 mg/dL (0.55-1.3) 05/25/19 07:50 Est GFR (CKD-EPI)AfAm 82.95 05/25/19 07:50 Est GFR (CKD-EPI)NonAf 71.57 05/25/19 07:50 Random Glucose 130 mg/dL (74-106) H 05/25/19 07:50 Calcium 8.8 mg/dL (8.5-10.1) 05/25/19 07:50 Total Bilirubin 0.2 mg/dL (0.2-1) 05/25/19 07:50 AST 11 U/L (15-37) L 05/25/19 07:50 ALT 17 U/L (13-61) 05/25/19 07:50 Alkaline Phosphatase 108 U/L (45-117) 05/25/19 07:50 Total Protein 6.3 g/dl (6.4-8.2) L 05/25/19 07:50 Albumin 3.2 g/dl (3.4-5.0) L 05/25/19 07:50 lab noted begin amlodipin 10 mg po daily Assessment: 05/25/19 11:32 alcohol withdrawal sx Plan: continue alcohol detox
[2019-05-25] MEDS: amLODIPine BESYLATE 10 MG TABLET (FP) PO SCH (13:12)
[2019-05-25] MEDS ORDERED: SODIUM PHOSPHATE/NA BIPHOS 133 ML ENEMA PR ONE (14:53)
[2019-05-25] MEDS ORDERED: COLLOIDAL OATMEAL 1 BAR EACH TP PRN (18:40)
[2019-05-25] MEDS: THIAMINE HCL 100 MG TABLET (FP) PO SCH (22:13)
[2019-05-25] MEDS: LIDOCAINE PATCH REMOVAL MC SCH (22:13)
[2019-05-26] MEDS: chlordiazePOXIDE HCL 25 MG CAPSULE PO SCH ×2 (06:07→11:07)
[2019-05-26 06:20] VITALS: BP 124/77; PULSE 68; TEMP 97.5
[2019-05-26] MEDS ORDERED: METHADONE HCL 40 MG DISPERSABLE TABLET PO SCH (07:51)
--- NOTE | 2019-05-26 10:41 | PN ---
S CIWA - CIWA Score Nausea/Vomitin-Mild Nausea/No Vomiting Muscle Tremors: 2 Anxiety: 2 Agitation: 2 Paroxysmal Sweats: 1-Minimal Palms Moist Orientation: 0-Oriented Tacttile Disturbances: 1-Very Mild Itch/Numbness Auditory Disturbances: 0-None Visual Disturbances: 0-None Headache: 0-None Present CIWA-Ar Total Score: 9 BHS Progress Note (SOAP) Subjective: discuss risks of oxycodone mixed methadone encourage to manjit off oxycodon incorporation with methadone program Objective: 05/26/19 10:51 Vital Signs Temperature 97.5 F L 05/26/19 06:19 Pulse Rate 68 05/26/19 06:19 Respiratory Rate 18 05/26/19 06:30 Blood Pressure 124/77 05/26/19 06:19 O2 Sat by Pulse Oximetry (%) Laboratory Last Values WBC 3.2 K/mm3 (4.0-10.0) L 05/25/19 07:50 RBC 4.27 M/mm3 (4.00-5.60) 05/25/19 07:50 Hgb 11.8 GM/dL (11.7-16.9) 05/25/19 07:50 Hct 36.0 % (35.4-49) 05/25/19 07:50 MCV 84.3 fl (80-96) 05/25/19 07:50 MCH 27.6 pg (25.7-33.7) 05/25/19 07:50 MCHC 32.8 g/dl (32.0-35.9) 05/25/19 07:50 RDW 14.5 % (11.9-15.9) 05/25/19 07:50 Plt Count 207 K/MM3 (134-434) D 05/25/19 07:50 MPV 7.9 fl (7.5-11.1) 05/25/19 07:50 Sodium 141 mmol/L (136-145) 05/25/19 07:50 Potassium 3.6 mmol/L (3.5-5.1) 05/25/19 07:50 Chloride 102 mmol/L (98-107) 05/25/19 07:50 Carbon Dioxide 31 mmol/L (21-32) 05/25/19 07:50 Anion Gap 7 MMOL/L (8-16) L 05/25/19 07:50 BUN 16.1 mg/dL (7-18) 05/25/19 07:50 Creatinine 1.1 mg/dL (0.55-1.3) 05/25/19 07:50 Est GFR (CKD-EPI)AfAm 82.95 05/25/19 07:50 Est GFR (CKD-EPI)NonAf 71.57 05/25/19 07:50 Random Glucose 130 mg/dL (74-106) H 05/25/19 07:50 Calcium 8.8 mg/dL (8.5-10.1) 05/25/19 07:50 Total Bilirubin 0.2 mg/dL (0.2-1) 05/25/19 07:50 AST 11 U/L (15-37) L 05/25/19 07:50 ALT 17 U/L (13-61) 05/25/19 07:50 Alkaline Phosphatase 108 U/L (45-117) 05/25/19 07:50 Total Protein 6.3 g/dl (6.4-8.2) L 05/25/19 07:50 Albumin 3.2 g/dl (3.4-5.0) L 05/25/19 07:50 RPR Titer Nonreactive (NONREACTIVE) 05/25/19 07:50 lab noted 05/26/19 10:52 repeat cbc Assessment: 05/26/19 10:52 alcohol withdrawal sx Plan: continue alcohol detox
[2019-05-26] MEDS: amLODIPine BESYLATE 10 MG TABLET (FP) PO SCH (11:07)
[2019-05-26] MEDS: NICOTINE 21 MG/24 HOURS TOPICAL PATCH TD SCH (11:07)
[2019-05-26] MEDS: PRENATAL VITAMINS W/ FOLIC ACID TABLET (FP) PO SCH (11:07)
[2019-05-26] MEDS: LIDOCAINE 5% TOPICAL PATCH TP SCH (11:07)
--- NOTE | 2019-05-26 14:58 | DS ---
[facility] Detox Discharge Summary Admission Date: 05/24/19 Discharge Date: 05/26/19 - History Present History: Alcohol Dependence Additional Comments: 63 years old male admitted on 05/24/19 for alcohol withdrawal sx insists to leave the detox unit today that he got his methadone 80 mg today and has clonopin and oxycodone at home strong recommend the patient do not share opiate with others and dispose opiate based pills properly - Physical Exam Results Vital Signs: Vital Signs Temperature 97.5 F L 05/26/19 06:19 Pulse Rate 68 05/26/19 06:19 Respiratory Rate 18 05/26/19 06:30 Blood Pressure 124/77 05/26/19 06:19 O2 Sat by Pulse Oximetry (%) Pertinent Admission Physical Exam Findings: alcohol withdrawal sx Laboratory Last Values WBC 3.2 K/mm3 (4.0-10.0) L 05/25/19 07:50 RBC 4.27 M/mm3 (4.00-5.60) 05/25/19 07:50 Hgb 11.8 GM/dL (11.7-16.9) 05/25/19 07:50 Hct 36.0 % (35.4-49) 05/25/19 07:50 MCV 84.3 fl (80-96) 05/25/19 07:50 MCH 27.6 pg (25.7-33.7) 05/25/19 07:50 MCHC 32.8 g/dl (32.0-35.9) 05/25/19 07:50 RDW 14.5 % (11.9-15.9) 05/25/19 07:50 Plt Count 207 K/MM3 (134-434) D 05/25/19 07:50 MPV 7.9 fl (7.5-11.1) 05/25/19 07:50 Sodium 141 mmol/L (136-145) 05/25/19 07:50 Potassium 3.6 mmol/L (3.5-5.1) 05/25/19 07:50 Chloride 102 mmol/L (98-107) 05/25/19 07:50 Carbon Dioxide 31 mmol/L (21-32) 05/25/19 07:50 Anion Gap 7 MMOL/L (8-16) L 05/25/19 07:50 BUN 16.1 mg/dL (7-18) 05/25/19 07:50 Creatinine 1.1 mg/dL (0.55-1.3) 05/25/19 07:50 Est GFR (CKD-EPI)AfAm 82.95 05/25/19 07:50 Est GFR (CKD-EPI)NonAf 71.57 05/25/19 07:50 Random Glucose 130 mg/dL (74-106) H 05/25/19 07:50 Calcium 8.8 mg/dL (8.5-10.1) 05/25/19 07:50 Total Bilirubin 0.2 mg/dL (0.2-1) 05/25/19 07:50 AST 11 U/L (15-37) L 05/25/19 07:50 ALT 17 U/L (13-61) 05/25/19 07:50 Alkaline Phosphatase 108 U/L (45-117) 05/25/19 07:50 Total Protein 6.3 g/dl (6.4-8.2) L 05/25/19 07:50 Albumin 3.2 g/dl (3.4-5.0) L 05/25/19 07:50 RPR Titer Nonreactive (NONREACTIVE) 05/25/19 07:50 lab noted - Treatment Hospital Course: Detox Protocol Followed, Responded well Patient has Accepted a Rehab Referral to: community support approach - Medication Discharge Medications: Ambulatory Orders Fluoxetine HCl [Prozac -] 20 mg PO DAILY 05/24/19 Oxycodone HCl/Acetaminophen [Percocet 10-325 mg Tablet] 1 each PO TID PRN clonazePAM [Clonazepam] 2 mg PO DAILY 05/24/19 - Diagnosis (1) Alcohol dependence with uncomplicated withdrawal Current Visit: Yes Status: Acute (2) Methadone maintenance therapy patient Current Visit: Yes Status: Chronic (3) Nicotine dependence Current Visit: Yes Status: Acute Qualifiers: Nicotine product type: cigarettes Substance use status: in withdrawal Qualified Code(s): F17.213 - Nicotine dependence, cigarettes, with withdrawal (4) BPH (benign prostatic hyperplasia) Current Visit: Yes Status: Chronic Qualifiers: Lower urinary tract symptom presence: unspecified whether lower urinary tract symptoms present Qualified Code(s): N40.0 - Benign prostatic hyperplasia without lower urinary tract symptoms (5) Hypercholesteremia Current Visit: Yes Status: Chronic - AMA Did Patient Leave Against Medical Advice: Yes
[2019-05-27] MEDS ORDERED: chlordiazePOXIDE HCL 10 MG CAPSULE PO PRN
[2019-05-27] MEDS ORDERED: chlordiazePOXIDE HCL 10 MG CAPSULE PO SCH (05:00)
[2019-05-28] MEDS ORDERED: chlordiazePOXIDE HCL 10 MG CAPSULE PO SCH (05:00)
[2019-05-29] MEDS ORDERED: chlordiazePOXIDE HCL 10 MG CAPSULE PO ONE (05:00)
== END 2019-05-26 08:10 | disposition left against medical advice (07) | DRG 770 ==
LOC: YASAS 11:17 → Y3N 16:16
PROVIDERS: ADMIT Surgery; ATTEND Surgery
PROC: HZ2ZZZZ Detoxification Services for Substance Abuse Treatment (ICD-10-PCS; principal; 2019-05-24)
DX: F10.230 Alcohol dependence with withdrawal, uncomplicated (principal); F11.20 Opioid dependence, uncomplicated; F14.20 Cocaine dependence, uncomplicated; F17.213 Nicotine dependence, cigarettes, with withdrawal; F41.8 Other specified anxiety disorders; F32.9 Major depressive disorder, single episode, unspecified; E78.00 Pure hypercholesterolemia, unspecified; M54.5 Low back pain; G89.29 Other chronic pain
CPT/HCPCS: 36415; 80053; 85027; 86593

== ENCOUNTER 2019-09-23 13:01 | Inpatient (IN) | payer OTHER ==
[2019-09-23 14:09] VITALS: BMI 33.7
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
[2019-09-23] MEDS ORDERED: ACETAMINOPHEN 325 MG TABLET (FP) PO PRN ×2 (16:24)
[2019-09-23] MEDS ORDERED: BISMUTH SUBSALICYLATE 524 MG/30 ML UD PO PRN (16:24)
[2019-09-23] MEDS ORDERED: MENTHOL/PHENOL 1 EACH UD MM PRN (16:24)
[2019-09-23] MEDS ORDERED: hydrOXYzine PAMOATE 25 MG CAPSULE (FP) PO PRN (16:24)
[2019-09-23] MEDS ORDERED: IBUPROFEN 400 MG TABLET (FP) PO PRN (16:24)
[2019-09-23] MEDS ORDERED: MAGNESIUM CITRATE 300 ML BOTTLE PO PRN (16:24)
[2019-09-23] MEDS ORDERED: MAGNESIUM HYDROX 2400MG/30ML ORAL SUSPENSION 30 ML CUP PO PRN (16:24)
[2019-09-23] MEDS ORDERED: MAG HYDROX/AL HYDROX/SIMETH 30 ML UNIT-DOSE CUP PO PRN (16:24)
[2019-09-23] MEDS ORDERED: MELATONIN 5 MG TABLETS PO PRN (16:24)
[2019-09-23] MEDS ORDERED: METHOCARBAMOL 500 MG TABLET PO PRN (16:24)
[2019-09-23] MEDS ORDERED: NICOTINE POLACRILEX 2 MG GUM BUC PRN (16:33)
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
[2019-09-23] MEDS: chlordiazePOXIDE HCL 10 MG CAPSULE PO PRN (17:21)
[2019-09-23] MEDS: chlordiazePOXIDE HCL 25 MG CAPSULE PO SCH (22:46)
[2019-09-23] MEDS: THIAMINE HCL 100 MG TABLET (FP) PO SCH (22:51)
[2019-09-24] MEDS: chlordiazePOXIDE HCL 25 MG CAPSULE PO SCH ×3 (06:35→21:24)
--- NOTE | 2019-09-24 09:22 | CONSULT ---
[facility] Psychiatric Consult - Data Date of interview: 09/24/19 Psychiatric History: Patient approached at bedside. Told underwriter solicitation director:"see psychiatrist for what!"
[2019-09-24] MEDS: METHADONE HCL 40 MG DISPERSABLE TABLET PO SCH (09:41)
[2019-09-24 09:49] LABS: HEMATOCRIT 36.3 % (35.4-49); MEAN CELL VOLUME 87.8 fl (80-96); MEAN PLT VOLUME 7.6 fl (7.5-11.1); PLATELET COUNT 226 K/MM3 (134-434); RBC 4.13 M/mm3 (4.00-5.60); RDW 14.8 % (11.9-15.9); WHITE BLOOD COUNT 5.2 K/mm3 (4.0-10.0)
[2019-09-24] MEDS ORDERED: PRENATAL VITAMINS W/ FOLIC ACID TABLET (FP) PO SCH (10:00)
[2019-09-24] MEDS ORDERED: NICOTINE 14 MG/24 HOURS TOPICAL PATCH TD SCH (10:00)
[2019-09-24 10:24] LABS: ALBUMIN 3.1 g/dl (3.4-5.0); BILIRUBIN,TOTAL 0.2 mg/dL (0.2-1); BLOOD UREA NITROGEN 17.4 mg/dL (7-18); CALCIUM 8.7 mg/dL (8.5-10.1); CREATININE 0.9 mg/dL (0.55-1.3); TOT PROT 5.9 g/dl (6.4-8.2)
--- NOTE | 2019-09-24 10:27 | PN ---
S CIWA - CIWA Score Nausea/Vomitin-Mild Nausea/No Vomiting Muscle Tremors: 2 Anxiety: 2 Agitation: 2 Paroxysmal Sweats: 1-Minimal Palms Moist Orientation: 0-Oriented Tacttile Disturbances: 0-None Auditory Disturbances: 0-None Visual Disturbances: 0-None Headache: 2-Mild CIWA-Ar Total Score: 10 BHS Progress Note (SOAP) Subjective: alert,irritable,anxious,interrupted sleep,pain in the body Objective: 09/24/19 10:26 Vital Signs Temperature 97.9 F 09/24/19 09:31 Pulse Rate 73 09/24/19 09:31 Respiratory Rate 18 09/24/19 09:31 Blood Pressure 119/76 09/24/19 09:31 O2 Sat by Pulse Oximetry (%) Assessment: 09/24/19 10:26 withdrawal symptom Plan: continued detox librium regimen,methadone maintenance 80 mgs/day
[2019-09-24] MEDS: chlordiazePOXIDE HCL 10 MG CAPSULE PO PRN (10:51)
[2019-09-24] MEDS: THIAMINE HCL 100 MG TABLET (FP) PO SCH (21:24)
[2019-09-25] MEDS: chlordiazePOXIDE HCL 10 MG CAPSULE PO PRN (01:57)
[2019-09-25] MEDS ORDERED: chlordiazePOXIDE 5 MG CAPSULE PO SCH (05:00)
[2019-09-25 06:20] VITALS: BP 112/69; PULSE 69; TEMP 97.7
[2019-09-25] MEDS: METHADONE HCL 40 MG DISPERSABLE TABLET PO SCH (06:50)
--- NOTE | 2019-09-25 08:43 | PN ---
S Progress Note Note: pt refused to stay and complete his detox. pt was advised to stay and prevent a risk of relapse, seizures, DT, OD and or loss, however, pt chose to sign out AMA.
--- NOTE | 2019-09-25 08:44 | DS ---
[facility] Detox Discharge Summary Admission Date: 09/23/19 - History Present History: Alcohol Dependence, Cannabis Dependence, Cocaine Dependence, Sedative Dependence, MMTP - Physical Exam Results Vital Signs: Vital Signs Temperature 97.7 F 09/25/19 06:19 Pulse Rate 69 09/25/19 06:19 Respiratory Rate 18 09/25/19 06:19 Blood Pressure 112/69 09/25/19 06:19 O2 Sat by Pulse Oximetry (%) - Treatment Hospital Course: Rehab Referral Accepted - Medication Discharge Medications: Ambulatory Orders Fluoxetine HCl [Prozac -] 20 mg PO DAILY 05/24/19 - AMA Did Patient Leave Against Medical Advice: Yes
[2019-09-26] MEDS ORDERED: chlordiazePOXIDE HCL 10 MG CAPSULE PO PRN
[2019-09-26] MEDS ORDERED: chlordiazePOXIDE HCL 10 MG CAPSULE PO SCH (05:00)
[2019-09-27] MEDS ORDERED: chlordiazePOXIDE HCL 10 MG CAPSULE PO ONE (05:00)
== END 2019-09-25 08:30 | disposition left against medical advice (07) | DRG 770 ==
LOC: YASAS 13:01 → Y6N 16:30
PROVIDERS: ADMIT Allergy & Immunology; ATTEND Allergy & Immunology
PROC: HZ2ZZZZ Detoxification Services for Substance Abuse Treatment (ICD-10-PCS; principal; 2019-09-23)
DX: F10.230 Alcohol dependence with withdrawal, uncomplicated (principal); F11.20 Opioid dependence, uncomplicated; F13.20 Sedative, hypnotic or anxiolytic dependence, uncomplicated; F14.20 Cocaine dependence, uncomplicated; F12.20 Cannabis dependence, uncomplicated; F17.210 Nicotine dependence, cigarettes, uncomplicated; E78.00 Pure hypercholesterolemia, unspecified; M54.5 Low back pain; G89.29 Other chronic pain
CPT/HCPCS: 36415; 80053; 85027; 86593

== ENCOUNTER 2019-11-26 13:34 | Inpatient (IN) | payer OTHER ==
[2019-11-26 17:19] VITALS: BMI 32.1
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
[2019-11-26] MEDS ORDERED: MAG HYDROX/AL HYDROX/SIMETH 30 ML UNIT-DOSE CUP PO PRN (20:37)
[2019-11-26] MEDS ORDERED: MAGNESIUM CITRATE 300 ML BOTTLE PO PRN (20:37)
[2019-11-26] MEDS ORDERED: NICOTINE POLACRILEX 2 MG GUM BUC PRN (20:37)
[2019-11-26] MEDS ORDERED: BISMUTH SUBSALICYLATE 524 MG/30 ML UD PO PRN (20:37)
[2019-11-26] MEDS ORDERED: IBUPROFEN 400 MG TABLET (FP) PO PRN (20:37)
[2019-11-26] MEDS ORDERED: hydrOXYzine PAMOATE 25 MG CAPSULE (FP) PO PRN (20:37)
[2019-11-26] MEDS ORDERED: ACETAMINOPHEN 325 MG TABLET (FP) PO PRN ×2 (20:37)
[2019-11-26] MEDS ORDERED: METHOCARBAMOL 500 MG TABLET PO PRN (20:37)
[2019-11-26] MEDS ORDERED: MELATONIN 5 MG TABLETS PO PRN (20:37)
[2019-11-26] MEDS ORDERED: MAGNESIUM HYDROX 2400MG/30ML ORAL SUSPENSION 30 ML CUP PO PRN (20:37)
[2019-11-26] MEDS ORDERED: MENTHOL/PHENOL 1 EACH UD MM PRN (20:37)
[2019-11-26] MEDS ORDERED: diazePAM 5 MG TABLET PO PRN (20:39)
[2019-11-26] MEDS: THIAMINE HCL 100 MG TABLET (FP) PO SCH (22:21)
[2019-11-26] MEDS: diazePAM 5 MG TABLET PO SCH (22:21)
[2019-11-27] MEDS: diazePAM 5 MG TABLET PO SCH ×3 (06:46→22:25)
[2019-11-27] MEDS ORDERED: METHADONE HCL 40 MG DISPERSABLE TABLET PO ONE (09:01)
[2019-11-27] MEDS: PRENATAL VITAMINS W/ FOLIC ACID TABLET (FP) PO SCH (10:33)
--- NOTE | 2019-11-27 11:29 | PN ---
S CIWA - CIWA Score Nausea/Vomitin-No Nausea/No Vomiting Muscle Tremors: 2 Anxiety: 1-Mildly Anxious Agitation: 2 Paroxysmal Sweats: 1-Minimal Palms Moist Orientation: 0-Oriented Tacttile Disturbances: 0-None Auditory Disturbances: 0-None Visual Disturbances: 0-None Headache: 0-None Present CIWA-Ar Total Score: 6 BHS Progress Note (SOAP) Subjective: feeling ok sweats Objective: 11/27/19 11:29 Vital Signs Temperature 96.8 F L 11/27/19 10:00 Pulse Rate 92 H 11/27/19 10:00 Respiratory Rate 18 11/27/19 10:00 Blood Pressure 144/79 11/27/19 10:00 O2 Sat by Pulse Oximetry (%) aaox3 ambulating no acute distress Assessment: 11/27/19 11:29 mild withdrawals Plan: continue detox
[2019-11-27 11:47] LABS: ALBUMIN 3.2 g/dl (3.4-5.0); BILIRUBIN,TOTAL 0.2 mg/dL (0.2-1); BLOOD UREA NITROGEN 15.4 mg/dL (7-18); CREATININE 0.9 mg/dL (0.55-1.3); HEMATOCRIT 36.9 % (35.4-49); HEMOGLOBIN 12.2 GM/dL (11.7-16.9); MCH 28.9 pg (25.7-33.7); MEAN CELL VOLUME 87.7 fl (80-96); MEAN PLT VOLUME 7.6 fl (7.5-11.1); PLATELET COUNT 248 K/MM3 (134-434); POTASSIUM 3.9 mmol/L (3.5-5.1); RBC 4.21 M/mm3 (4.00-5.60); RDW 14.5 % (11.9-15.9); TOT PROT 6.6 g/dl (6.4-8.2); WHITE BLOOD COUNT 4.3 K/mm3 (4.0-10.0)
[2019-11-27] MEDS: THIAMINE HCL 100 MG TABLET (FP) PO SCH (22:25)
[2019-11-28] MEDS ORDERED: diazePAM 5 MG TABLET PO SCH (06:00)
[2019-11-28] MEDS ORDERED: METHADONE HCL 40 MG DISPERSABLE TABLET PO SCH (06:00)
[2019-11-28] MEDS: PRENATAL VITAMINS W/ FOLIC ACID TABLET (FP) PO SCH (09:31)
[2019-11-28 09:39] VITALS: BP 127/78; PULSE 96; TEMP 97.1
--- NOTE | 2019-11-28 12:08 | PN ---
BHS CIWA - CIWA Score Nausea/Vomitin-No Nausea/No Vomiting Muscle Tremors: 1-None Visible, but [place] Anxiety: 1-Mildly Anxious Agitation: 1-Slight > Activity Paroxysmal Sweats: No Perspiration Orientation: 0-Oriented Tacttile Disturbances: 0-None Auditory Disturbances: 0-None Visual Disturbances: 0-None Headache: 0-None Present CIWA-Ar Total Score: 3 BHS Progress Note (SOAP) Subjective: feeling better anxiety Objective: 11/28/19 12:07 Vital Signs Temperature 97.1 F L 11/28/19 09:38 Pulse Rate 96 H 11/28/19 09:38 Respiratory Rate 16 11/28/19 09:38 Blood Pressure 127/78 11/28/19 09:38 O2 Sat by Pulse Oximetry (%) Laboratory Tests 11/27/19 11/27/19 08:20 08:20 WBC 4.3 RBC 4.21 Hgb 12.2 Hct 36.9 MCV 87.7 MCH 28.9 MCHC 33.0 RDW 14.5 Plt Count 248 MPV 7.6 Sodium 139 Potassium 3.9 Chloride 104 Carbon Dioxide 31 Anion Gap 3 L BUN 15.4 Creatinine 0.9 Est GFR (CKD-EPI)AfAm 105.72 Est GFR (CKD-EPI)NonAf 91.22 Random Glucose 104 Calcium 9.0 Total Bilirubin 0.2 AST 9 L ALT 20 Alkaline Phosphatase 117 Total Protein 6.6 Albumin 3.2 L aaox3 ambulating no acute distress Assessment: 11/28/19 12:07 mild withdrawal sx Plan: d/c in am
--- NOTE | 2019-11-28 14:56 | DS ---
[facility] Detox Discharge Summary Admission Date: 11/26/19 Discharge Date: 11/28/19 - History Present History: Alcohol Dependence, Cannabis Dependence, Opioid Dependence, Sedative Dependence, MMTP - Physical Exam Results Vital Signs: Vital Signs Temperature 97.1 F L 11/28/19 09:38 Pulse Rate 96 H 11/28/19 09:38 Respiratory Rate 16 11/28/19 09:38 Blood Pressure 127/78 11/28/19 09:38 O2 Sat by Pulse Oximetry (%) Pertinent Admission Physical Exam Findings: Vital Signs Temperature 97.1 F L 11/28/19 09:38 Pulse Rate 96 H 11/28/19 09:38 Respiratory Rate 16 11/28/19 09:38 Blood Pressure 127/78 11/28/19 09:38 O2 Sat by Pulse Oximetry (%) Laboratory Tests 11/27/19 11/27/19 08:20 08:20 WBC 4.3 RBC 4.21 Hgb 12.2 Hct 36.9 MCV 87.7 MCH 28.9 MCHC 33.0 RDW 14.5 Plt Count 248 MPV 7.6 Sodium 139 Potassium 3.9 Chloride 104 Carbon Dioxide 31 Anion Gap 3 L BUN 15.4 Creatinine 0.9 Est GFR (CKD-EPI)AfAm 105.72 Est GFR (CKD-EPI)NonAf 91.22 Random Glucose 104 Calcium 9.0 Total Bilirubin 0.2 AST 9 L ALT 20 Alkaline Phosphatase 117 Total Protein 6.6 Albumin 3.2 L aaox3 ambulating no acute distress - Treatment Hospital Course: Detox Protocol Followed, Detoxed Safely, Responded well, Discharged Condition Good, Rehab Referral Accepted - Medication Discharge Medications: Ambulatory Orders NK [No Known Home Medication] 11/26/19 - Diagnosis (1) Sedative, hypnotic or anxiolytic dependence, uncomplicated Status: Chronic (2) Alcohol dependence with uncomplicated withdrawal Status: Chronic (3) BPH (benign prostatic hyperplasia) Status: Chronic Qualifiers: Lower urinary tract symptom presence: unspecified whether lower urinary tract symptoms present Qualified Code(s): N40.0 - Benign prostatic hyperplasia without lower urinary tract symptoms (4) Cannabis abuse Status: Chronic (5) Cocaine dependence, uncomplicated Status: Chronic (6) HTN (hypertension) Status: Chronic Qualifiers: Hypertension type: essential hypertension Qualified Code(s): I10 - Essential (primary) hypertension (7) Hypercholesteremia Status: Chronic (8) Methadone maintenance therapy patient Status: Chronic (9) Nicotine dependence Status: Chronic Qualifiers: Nicotine product type: cigarettes Substance use status: uncomplicated Qualified Code(s): F17.210 - Nicotine dependence, cigarettes, uncomplicated (10) Drug-induced mood disorder Status: Suspected - AMA Did Patient Leave Against Medical Advice: No
[2019-11-29] MEDS ORDERED: diazePAM 5 MG TABLET PO ONE (06:00)
== END 2019-11-28 13:26 | disposition home or self-care (01) | DRG 773 ==
LOC: YASAS 13:34 → Y6N 20:54
PROVIDERS: ADMIT Allergy & Immunology; ATTEND Allergy & Immunology
PROC: HZ2ZZZZ Detoxification Services for Substance Abuse Treatment (ICD-10-PCS; principal; 2019-11-26)
DX: F10.230 Alcohol dependence with withdrawal, uncomplicated (principal); F11.20 Opioid dependence, uncomplicated; F13.230 Sedative, hypnotic or anxiolytic dependence with withdrawal, uncomplicated; F14.20 Cocaine dependence, uncomplicated; F12.10 Cannabis abuse, uncomplicated; F17.210 Nicotine dependence, cigarettes, uncomplicated; F19.24 Other psychoactive substance dependence with psychoactive substance-induced mood disorder; I10 Essential (primary) hypertension; N40.0 Benign prostatic hyperplasia without lower urinary tract symptoms; R00.0 Tachycardia, unspecified
CPT/HCPCS: 36415; 80053; 85027

== ENCOUNTER 2020-06-08 10:53 | Inpatient (IN) | payer OTHER ==
--- NOTE | 2020-06-08 11:11 | BHS.RME ---
Substance Use & Tx History - Substance Use History Alcohol Substance amount: 2 pints vodka + beers Frequency of use: Daily Substance route: Oral Date of Last Use: 06/07/20 (11pm) Heroin Substance amount: 3-4 bags Frequency of use: Daily Substance route: Inhalation (ex: sniffing or snorting) Date of Last Use: 06/07/20 Cocaine- Powder Substance amount: 1 gram Frequency of use: Daily Substance route: Inhalation (ex: sniffing or snorting) Date of Last Use: 06/07/20 Physical/Psych/Mental Status - Behavior General Behavior: Increased activity (restlessness, agitation) Eye Contact: Normal - Cooperativeness Cooperativeness: Cooperative - Thinking Thought Processes: Tight, Logical, Goal Directed - Physical Health Problems Is patient presently having any pain?: No Does patient presently have any injuries (include location): No Does patient currently have a fever: No Is patient : No CIWA Nausea/Vomitin Muscle Tremors: 3 Anxiety: 2 Agitation: 2 Paroxysmal Sweats: 1-Minimal Palms Moist Orientation: 0-Oriented Tacttile Disturbances: 0-None Auditory Disturbances: 0-None Visual Disturbances: 0-None Headache: 0-None Present CIWA-Ar Total Score: 11
[2020-06-08 11:32] VITALS: BMI 28.7
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
[2020-06-08] MEDS ORDERED: ACETAMINOPHEN 325 MG TABLET (FP) PO PRN ×2 (12:13)
[2020-06-08] MEDS ORDERED: ONDANSETRON *ODT* 4 MG TABLET SL ONE (12:13)
[2020-06-08] MEDS ORDERED: MENTHOL/PHENOL 1 EACH UD MM PRN (12:13)
[2020-06-08] MEDS ORDERED: MAG HYDROX/AL HYDROX/SIMETH 30 ML UNIT-DOSE CUP PO PRN (12:13)
[2020-06-08] MEDS ORDERED: METHOCARBAMOL 500 MG TABLET PO PRN (12:13)
[2020-06-08] MEDS ORDERED: MAGNESIUM CITRATE 300 ML BOTTLE PO PRN (12:13)
[2020-06-08] MEDS ORDERED: IBUPROFEN 400 MG TABLET (FP) PO PRN (12:13)
[2020-06-08] MEDS ORDERED: MAGNESIUM HYDROX 2400MG/30ML ORAL SUSPENSION 30 ML CUP PO PRN (12:13)
[2020-06-08] MEDS ORDERED: NICOTINE POLACRILEX 2 MG GUM BUC PRN (12:13)
[2020-06-08] MEDS ORDERED: chlordiazePOXIDE HCL 25 MG CAPSULE PO PRN (12:13)
[2020-06-08] MEDS ORDERED: BISMUTH SUBSALICYLATE 524 MG/30 ML UD PO PRN (12:13)
[2020-06-08] MEDS: NICOTINE 7 MG/24 HOURS TOPICAL PATCH TD SCH (13:00)
[2020-06-08] MEDS: chlordiazePOXIDE HCL 25 MG CAPSULE PO SCH ×3 (13:00→22:15)
[2020-06-08] MEDS: PRENATAL VITAMINS W/ FOLIC ACID TABLET (FP) PO SCH (13:00)
[2020-06-08] MEDS: hydrOXYzine PAMOATE 25 MG CAPSULE (FP) PO SCH ×3 (14:19→22:21)
[2020-06-08 15:25] LABS: HEMATOCRIT 37.1 % (35.4-49); HEMOGLOBIN 11.6 GM/dL (11.7-16.9); MCH 26.4 pg (25.7-33.7); MCHC 31.3 g/dl (32.0-35.9); MEAN CELL VOLUME 84.4 fl (80-96); MEAN PLT VOLUME 7.9 fl (7.5-11.1); PLATELET COUNT 264 K/MM3 (134-434); RBC 4.39 M/mm3 (4.00-5.60); RDW 17.1 % (11.9-15.9); WHITE BLOOD COUNT 4.4 K/mm3 (4.0-10.0)
[2020-06-08 15:39] LABS: ALBUMIN 3.4 g/dl (3.4-5.0); BILIRUBIN,TOTAL 0.5 mg/dL (0.2-1); BLOOD UREA NITROGEN 16.8 mg/dL (7-18); CALCIUM 9.7 mg/dL (8.5-10.1); CREATININE 1.1 mg/dL (0.55-1.3); TOT PROT 7.2 g/dl (6.4-8.2)
[2020-06-08] MEDS ORDERED: MASKS NR ONE (20:43)
[2020-06-08] MEDS: MELATONIN 5 MG TABLETS PO SCH (22:15)
[2020-06-08] MEDS: THIAMINE HCL 100 MG TABLET (FP) PO SCH (22:15)
[2020-06-09] MEDS: hydrOXYzine PAMOATE 25 MG CAPSULE (FP) PO SCH ×5 (07:12→22:04)
[2020-06-09] MEDS: chlordiazePOXIDE HCL 25 MG CAPSULE PO SCH ×4 (07:12→22:02)
[2020-06-09] MEDS: METHADONE HCL 40 MG DISPERSABLE TABLET PO SCH (07:59)
--- NOTE | 2020-06-09 09:16 | PN ---
S CIWA - CIWA Score Nausea/Vomitin-Mild Nausea/No Vomiting Muscle Tremors: 3 Anxiety: 4-Mod. Anxious/Guarded Agitation: 2 Paroxysmal Sweats: 1-Minimal Palms Moist Orientation: 0-Oriented Tacttile Disturbances: 0-None Auditory Disturbances: 0-None Visual Disturbances: 0-None Headache: 1-Very Mild CIWA-Ar Total Score: 12 BHS Progress Note (SOAP) Subjective: 64 years old male admitted on 06/08/20 for alcohol withdrawal sx management treating with librium detox regiment discontinue isolation precaution left tonsillar and submental lymphadenopathy no drooling no trouble breathing oral pharyngeal redness erythema tonsillitis amoxicillin 500 mg po tid x 7 days first dose now Vital Signs - 24 hr 06/08/20 06/08/20 06/08/20 11:30 12:15 12:43 Temperature 98.0 F 98.0 F 96.9 F L Pulse Rate 85 85 80 Respiratory 18 18 18 Rate Blood Pressure 132/85 132/85 113/81 O2 Sat by Pulse 96 Oximetry (%) 06/08/20 06/08/20 06/09/20 16:42 20:58 05:45 Temperature 97.1 F L 97.3 F L 97.6 F Pulse Rate 68 70 67 Respiratory 18 18 18 Rate Blood Pressure 117/73 122/80 140/75 O2 Sat by Pulse 98 96 Oximetry (%) 06/09/20 08:52 Temperature 96.9 F L Pulse Rate 75 Respiratory 20 Rate Blood Pressure 127/87 O2 Sat by Pulse Oximetry (%) Objective: 06/09/20 09:15 Laboratory Tests 06/08/20 06/08/20 06/08/20 12:00 12:00 12:00 WBC 4.4 RBC 4.39 Hgb 11.6 L Hct 37.1 MCV 84.4 MCH 26.4 MCHC 31.3 L RDW 17.1 H Plt Count 264 MPV 7.9 Sodium 141 Potassium 4.0 Chloride 103 Carbon Dioxide 33 H Anion Gap 4 L BUN 16.8 Creatinine 1.1 Est GFR (CKD-EPI)AfAm 82.37 Est GFR (CKD-EPI)NonAf 71.07 Random Glucose 126 H Calcium 9.7 Total Bilirubin 0.5 AST 10 L ALT 15 Alkaline Phosphatase 119 H Total Protein 7.2 Albumin 3.4 Syphilis Serology Reactive A* glulcose elevation 06/09/20 09:16 rpr pending 06/09/20 09:16 covid pending 06/09/20 09:17 fasting glucose pending Assessment: 06/09/20 09:17 alcohol withdrawal methadone maintenance Plan: librium regiment methadone 80mg po daily around 6 am
[2020-06-09] MEDS ORDERED: AMOXICILLIN 500 MG CAPSULE (FP) PO ONE (10:00)
[2020-06-09] MEDS: NICOTINE 7 MG/24 HOURS TOPICAL PATCH TD SCH (10:16)
[2020-06-09] MEDS: PRENATAL VITAMINS W/ FOLIC ACID TABLET (FP) PO SCH (10:17)
[2020-06-09] MEDS: AMOXICILLIN 500 MG CAPSULE (FP) PO SCH ×2 (14:06→22:02)
[2020-06-09] MEDS: MELATONIN 5 MG TABLETS PO SCH (22:01)
[2020-06-09] MEDS: THIAMINE HCL 100 MG TABLET (FP) PO SCH (22:04)
[2020-06-10] MEDS: METHADONE HCL 40 MG DISPERSABLE TABLET PO SCH (07:02)
[2020-06-10] MEDS: hydrOXYzine PAMOATE 25 MG CAPSULE (FP) PO SCH ×2 (07:02→10:11)
[2020-06-10] MEDS: chlordiazePOXIDE HCL 25 MG CAPSULE PO SCH ×2 (07:02→10:11)
[2020-06-10] MEDS: AMOXICILLIN 500 MG CAPSULE (FP) PO SCH (07:03)
[2020-06-10 09:17] VITALS: BP 117/66; PULSE 66; TEMP 96.9
[2020-06-10] MEDS: PRENATAL VITAMINS W/ FOLIC ACID TABLET (FP) PO SCH (10:20)
[2020-06-10] MEDS ORDERED: MASKS NR ONE (10:45)
[2020-06-10] MEDS: NICOTINE 7 MG/24 HOURS TOPICAL PATCH TD SCH (11:35)
--- NOTE | 2020-06-10 12:31 | DS ---
[facility] Detox Discharge Summary Admission Date: 06/08/20 Discharge Date: 06/10/20 - History Present History: Alcohol Dependence Additional Comments: 64 years old male admitted on 06/08/20 for alcohol withdrawal sx management feeling better today prefers to leave the detox today alert oriented x 3 speech clearly coherently ambulating steady gaits cardiac [id number] regular rate rhythm Vital Signs - 24 hr 06/09/20 06/09/20 06/09/20 12:42 16:50 20:42 Temperature 97.1 F L 96.9 F L 97.5 F L Pulse Rate 66 71 76 Respiratory 20 18 18 Rate Blood Pressure 130/74 134/89 122/78 O2 Sat by Pulse 96 99 Oximetry (%) 06/10/20 06/10/20 06:31 08:40 Temperature 97.1 F L 96.9 F L Pulse Rate 67 66 Respiratory 18 18 Rate Blood Pressure 135/87 117/66 O2 Sat by Pulse 100 Oximetry (%) respiratory clear lung sounds bilaterally on auscultation extremities full range of motion Pertinent Past History: time for discharge 55 minutes treatment team met with the patient to discuss the benefit of librium completion mr quinteros states that he needs to return to work later today "I do not want to lose my job" mr juarez prefers returning to methadone maintenance program for behavior and psychosocial therapies mr juarez in taking amoxicillin for laryngitis will be re evaluated by the methadone provider for further medical intervention if necessary - Physical Exam Results Vital Signs: Vital Signs Temperature 96.9 F L 06/10/20 08:40 Pulse Rate 66 06/10/20 08:40 Respiratory Rate 18 06/10/20 08:40 Blood Pressure 117/66 06/10/20 08:40 O2 Sat by Pulse Oximetry (%) 100 06/10/20 06:31 Pertinent Admission Physical Exam Findings: alcohol withdrawal Laboratory Tests 06/08/20 06/08/20 06/08/20 12:00 12:00 12:00 WBC 4.4 RBC 4.39 Hgb 11.6 L Hct 37.1 MCV 84.4 MCH 26.4 MCHC 31.3 L RDW 17.1 H Plt Count 264 MPV 7.9 Sodium 141 Potassium 4.0 Chloride 103 Carbon Dioxide 33 H Anion Gap 4 L BUN 16.8 Creatinine 1.1 Est GFR (CKD-EPI)AfAm 82.37 Est GFR (CKD-EPI)NonAf 71.07 Random Glucose 126 H Calcium 9.7 Total Bilirubin 0.5 AST 10 L ALT 15 Alkaline Phosphatase 119 H Total Protein 7.2 Albumin 3.4 Syphilis Serology Reactive A* RPR Titer COVID-19 ([facility]) 06/08/20 06/08/20 12:00 12:30 WBC RBC Hgb Hct MCV MCH MCHC RDW Plt Count MPV Sodium Potassium Chloride Carbon Dioxide Anion Gap BUN Creatinine Est GFR (CKD-EPI)AfAm Est GFR (CKD-EPI)NonAf Random Glucose Calcium Total Bilirubin AST ALT Alkaline Phosphatase Total Protein Albumin Syphilis Serology RPR Titer Reactive 1:1 H D COVID-19 ([facility]) Not detected lab noted syphilis contacted treated will be added into problem list - Treatment Hospital Course: Detox Protocol Followed, Detoxed Safely, Responded well, Discharged Condition Good, Rehab Referral Accepted Patient has Accepted a Rehab Referral to: methadone maintenance program - Medication Discharge Medications: Ambulatory Orders Amoxicillin - [Amoxicillin 500mg Capsule -] 500 mg PO ONCE #10 capsule 06/10/20 Amoxicillin - [Amoxicillin 500mg Capsule -] 500 mg PO TID #10 capsule 06/10/20 - Diagnosis (1) Substance induced mood disorder Status: Suspected (2) Alcohol dependence with uncomplicated withdrawal Status: Acute (3) HTN (hypertension) Status: Chronic Qualifiers: Hypertension type: essential hypertension Qualified Code(s): I10 - Essential (primary) hypertension (4) Hypercholesteremia Status: Chronic (5) BPH (benign prostatic hyperplasia) Status: Chronic Qualifiers: Lower urinary tract symptom presence: symptoms absent Qualified Code(s): N40.0 - Benign prostatic hyperplasia without lower urinary tract symptoms (6) Nicotine dependence Status: Acute Qualifiers: Nicotine product type: cigarettes Substance use status: in withdrawal Qualified Code(s): F17.213 - Nicotine dependence, cigarettes, with withdrawal (7) Methadone maintenance therapy patient Status: Chronic - AMA Did Patient Leave Against Medical Advice: No CIWA Score - CIWA Score Nausea/Vomitin-No Nausea/No Vomiting Muscle Tremors: 2 Anxiety: 4-Mod. Anxious/Guarded Agitation: 2 Paroxysmal Sweats: No Perspiration Orientation: 0-Oriented Tacttile Disturbances: 0-None Auditory Disturbances: 0-None Visual Disturbances: 0-None Headache: 0-None Present CIWA-Ar Total Score: 8
[2020-06-11] MEDS ORDERED: chlordiazePOXIDE HCL 10 MG CAPSULE PO PRN
[2020-06-11] MEDS ORDERED: chlordiazePOXIDE HCL 10 MG CAPSULE PO SCH (05:00)
[2020-06-12] MEDS ORDERED: chlordiazePOXIDE HCL 10 MG CAPSULE PO SCH (05:00)
[2020-06-13] MEDS ORDERED: chlordiazePOXIDE HCL 10 MG CAPSULE PO ONE (05:00)
== END 2020-06-10 10:46 | disposition home or self-care (01) | DRG 773 ==
LOC: YASAS 10:53 → Y3N 12:19
PROVIDERS: ADMIT Allergy & Immunology; ATTEND Allergy & Immunology
PROC: HZ2ZZZZ Detoxification Services for Substance Abuse Treatment (ICD-10-PCS; principal; 2020-06-08)
DX: F10.230 Alcohol dependence with withdrawal, uncomplicated (principal); F11.20 Opioid dependence, uncomplicated; F14.20 Cocaine dependence, uncomplicated; F12.10 Cannabis abuse, uncomplicated; F17.213 Nicotine dependence, cigarettes, with withdrawal; F19.24 Other psychoactive substance dependence with psychoactive substance-induced mood disorder; I10 Essential (primary) hypertension; E78.5 Hyperlipidemia, unspecified; E78.00 Pure hypercholesterolemia, unspecified; N40.0 Benign prostatic hyperplasia without lower urinary tract symptoms; R59.0 Localized enlarged lymph nodes; J03.90 Acute tonsillitis, unspecified; Z20.2 Contact with and (suspected) exposure to infections with a predominantly sexual mode of transmission
CPT/HCPCS: 36415; 80053; 85027; 86593; 86780; U0003

== ENCOUNTER 2020-12-23 12:34 | Inpatient (IN) | payer OTHER ==
[2020-12-23 13:24] VITALS: BMI 29.8
[2020-12-23] MEDS ORDERED: MENTHOL/PHENOL 1 EACH UD MM PRN (14:29)
[2020-12-23] MEDS ORDERED: MAG HYDROX/AL HYDROX/SIMETH 30 ML UNIT-DOSE CUP PO PRN (14:29)
[2020-12-23] MEDS ORDERED: LORazepam 1 MG TABLET PO PRN (14:29)
[2020-12-23] MEDS ORDERED: MAGNESIUM CITRATE 300 ML BOTTLE PO PRN (14:29)
[2020-12-23] MEDS ORDERED: IBUPROFEN 400 MG TABLET (FP) PO PRN (14:29)
[2020-12-23] MEDS ORDERED: NICOTINE POLACRILEX 2 MG GUM BUC PRN (14:29)
[2020-12-23] MEDS ORDERED: BISMUTH SUBSALICYLATE 262 MG/15 ML BTL PO PRN (14:29)
[2020-12-23] MEDS ORDERED: ONDANSETRON *ODT* 4 MG TABLET SL PRN (14:29)
[2020-12-23] MEDS ORDERED: ACETAMINOPHEN 325 MG TABLET (FP) PO PRN ×2 (14:29)
[2020-12-23] MEDS ORDERED: METHOCARBAMOL 500 MG TABLET PO PRN (14:29)
[2020-12-23] MEDS ORDERED: MAGNESIUM HYDROX 2400MG/30ML ORAL SUSPENSION 30 ML CUP PO PRN (14:29)
[2020-12-23] MEDS: NICOTINE 21 MG/24 HOURS TOPICAL PATCH TD SCH (15:12)
[2020-12-23] MEDS: LORazepam 2 MG TABLET PO SCH ×2 (17:38→22:10)
[2020-12-23] MEDS: hydrOXYzine PAMOATE 25 MG CAPSULE (FP) PO SCH ×2 (17:39→22:10)
[2020-12-23] MEDS: LIDOCAINE VISCOUS 2% ORAL/TOP 20 ML UNIT-DOSE CUP MM PRN (17:39)
[2020-12-23 19:54] LABS: HEMATOCRIT 32.6 % (35.4-49); HEMOGLOBIN 10.7 GM/dL (11.7-16.9); MCH 27.3 pg (25.7-33.7); MCHC 32.8 g/dl (32.0-35.9); MEAN CELL VOLUME 83.3 fl (80-96); MEAN PLT VOLUME 7.4 fl (7.5-11.1); PLATELET COUNT 372 K/MM3 (134-434); RBC 3.91 M/mm3 (4.00-5.60); RDW 15.8 % (11.9-15.9); WHITE BLOOD COUNT 4.5 K/mm3 (4.0-10.0)
[2020-12-23 20:05] LABS: POTASSIUM 4.8 mmol/L (3.5-5.1)
[2020-12-23 20:14] LABS: CALCIUM 9.3 mg/dL (8.5-10.1)
[2020-12-23 20:15] LABS: ALBUMIN 3.2 g/dl (3.4-5.0); BLOOD UREA NITROGEN 17.8 mg/dL (7-18)
[2020-12-23 20:18] LABS: CREATININE 1.1 mg/dL (0.55-1.3)
[2020-12-23 20:19] LABS: BILIRUBIN,TOTAL 0.4 mg/dL (0.2-1)
[2020-12-23 20:20] LABS: TOT PROT 7.2 g/dl (6.4-8.2)
[2020-12-23] MEDS: THIAMINE HCL 100 MG TABLET (FP) PO SCH (22:10)
[2020-12-23] MEDS: MELATONIN 5 MG TABLETS PO SCH (22:10)
[2020-12-24] MEDS: hydrOXYzine PAMOATE 25 MG CAPSULE (FP) PO SCH ×5 (06:16→22:58)
[2020-12-24] MEDS: LORazepam 2 MG TABLET PO SCH ×4 (06:16→22:58)
[2020-12-24] MEDS: METHADONE HCL 40 MG DISPERSABLE TABLET PO SCH (06:16)
[2020-12-24] MEDS: LIDOCAINE VISCOUS 2% ORAL/TOP 20 ML UNIT-DOSE CUP MM PRN ×3 (06:19→23:01)
[2020-12-24] MEDS ORDERED: MASKS NR ONE (06:20)
[2020-12-24] MEDS: NICOTINE 21 MG/24 HOURS TOPICAL PATCH TD SCH (10:12)
[2020-12-24] MEDS: PRENATAL VITAMINS W/ FOLIC ACID TABLET (FP) PO SCH (10:12)
[2020-12-24] MEDS: CLOTRIMAZOLE 10 MG TROCHE PO SCH ×3 (14:53→22:58)
[2020-12-24] MEDS: THIAMINE HCL 100 MG TABLET (FP) PO SCH (22:58)
[2020-12-24] MEDS: MELATONIN 5 MG TABLETS PO SCH (23:00)
[2020-12-25] MEDS: LORazepam 1 MG TABLET PO SCH ×2 (05:36→10:30)
[2020-12-25] MEDS: hydrOXYzine PAMOATE 25 MG CAPSULE (FP) PO SCH ×2 (05:37→10:32)
[2020-12-25] MEDS: METHADONE HCL 40 MG DISPERSABLE TABLET PO SCH (05:37)
[2020-12-25] MEDS: CLOTRIMAZOLE 10 MG TROCHE PO SCH ×2 (05:37→10:33)
[2020-12-25] MEDS: LIDOCAINE VISCOUS 2% ORAL/TOP 20 ML UNIT-DOSE CUP MM PRN (05:40)
[2020-12-25 09:06] VITALS: BP 126/75; PULSE 71; TEMP 96.6
[2020-12-25] MEDS: NICOTINE 21 MG/24 HOURS TOPICAL PATCH TD SCH (10:30)
[2020-12-25] MEDS: PRENATAL VITAMINS W/ FOLIC ACID TABLET (FP) PO SCH (10:30)
[2020-12-25] MEDS ORDERED: MASKS NR ONE (10:42)
[2020-12-26] MEDS ORDERED: LORazepam 0.5 MG TABLET PO PRN
[2020-12-26] MEDS ORDERED: LORazepam 0.5 MG TABLET PO SCH (05:00)
[2020-12-27] MEDS ORDERED: LORazepam 0.5 MG TABLET PO ONE (05:00)
== END 2020-12-25 12:43 | disposition left against medical advice (07) | DRG 770 ==
LOC: YASAS 12:34 → Y3N 13:44
PROVIDERS: ADMIT Allergy & Immunology; ATTEND Allergy & Immunology
PROC: HZ2ZZZZ Detoxification Services for Substance Abuse Treatment (ICD-10-PCS; principal; 2020-12-23)
DX: F10.230 Alcohol dependence with withdrawal, uncomplicated (principal); F11.23 Opioid dependence with withdrawal; F14.20 Cocaine dependence, uncomplicated; F12.20 Cannabis dependence, uncomplicated; F17.213 Nicotine dependence, cigarettes, with withdrawal; I10 Essential (primary) hypertension; E78.00 Pure hypercholesterolemia, unspecified; N40.0 Benign prostatic hyperplasia without lower urinary tract symptoms
CPT/HCPCS: 36415; 80053; 85027; 86593; 86780; 93005; 93010; C9803; U0003

== ENCOUNTER 2021-05-14 13:25 | Inpatient (IN) | payer OTHER ==
[2021-05-14 14:58] VITALS: BMI 28.8
[2021-05-14] MEDS ORDERED: MAG HYDROX/AL HYDROX/SIMETH 30 ML UNIT-DOSE CUP PO PRN (21:48)
[2021-05-14] MEDS ORDERED: MAGNESIUM HYDROX 2400MG/30ML ORAL SUSPENSION 30 ML CUP PO PRN (21:48)
[2021-05-14] MEDS ORDERED: diazePAM 5 MG TABLET PO PRN (21:48)
[2021-05-14] MEDS ORDERED: MENTHOL/PHENOL 1 EACH UD MM PRN (21:48)
[2021-05-14] MEDS ORDERED: ACETAMINOPHEN 325 MG TABLET (FP) PO PRN ×2 (21:48)
[2021-05-14] MEDS ORDERED: NICOTINE POLACRILEX 2 MG GUM BUC PRN (21:48)
[2021-05-14] MEDS ORDERED: MAGNESIUM CITRATE 300 ML BOTTLE PO PRN (21:48)
[2021-05-14] MEDS ORDERED: METHOCARBAMOL 500 MG TABLET PO PRN (21:48)
[2021-05-14] MEDS ORDERED: IBUPROFEN 400 MG TABLET (FP) PO PRN (21:48)
[2021-05-14] MEDS ORDERED: ONDANSETRON *ODT* 4 MG TABLET SL PRN (21:48)
[2021-05-14] MEDS ORDERED: BISMUTH SUBSALICYLATE 524 MG/30 ML PO PRN (21:48)
[2021-05-14] MEDS: THIAMINE HCL 100 MG TABLET (FP) PO SCH (23:41)
[2021-05-14] MEDS: diazePAM 5 MG TABLET PO SCH (23:41)
[2021-05-14] MEDS: MELATONIN 5 MG TABLETS PO SCH (23:43)
[2021-05-15] MEDS: diazePAM 5 MG TABLET PO SCH ×4 (06:05→22:04)
[2021-05-15] MEDS: NICOTINE 21 MG/24 HOURS TOPICAL PATCH TD SCH (10:24)
[2021-05-15] MEDS: PRENATAL VITAMINS W/ FOLIC ACID TABLET (FP) PO SCH (10:25)
[2021-05-15] MEDS ORDERED: METHADONE HCL 40 MG DISPERSABLE TABLET PO ONE (10:50)
[2021-05-15] MEDS: amLODIPine BESYLATE 10 MG TABLET (FP) PO SCH (15:23)
[2021-05-15] MEDS: THIAMINE HCL 100 MG TABLET (FP) PO SCH (22:04)
[2021-05-15] MEDS: MELATONIN 5 MG TABLETS PO SCH (22:04)
[2021-05-16] MEDS: diazePAM 5 MG TABLET PO SCH ×2 (05:30→14:51)
[2021-05-16] MEDS ORDERED: METHADONE HCL 40 MG DISPERSABLE TABLET PO ONE (09:00)
[2021-05-16] MEDS: PRENATAL VITAMINS W/ FOLIC ACID TABLET (FP) PO SCH (10:40)
[2021-05-16] MEDS: NICOTINE 21 MG/24 HOURS TOPICAL PATCH TD SCH (10:40)
[2021-05-16] MEDS: amLODIPine BESYLATE 10 MG TABLET (FP) PO SCH (11:30)
[2021-05-16] MEDS ORDERED: MASKS NR ONE (12:59)
[2021-05-16 13:21] VITALS: BP 144/85; PULSE 96; TEMP 97.1
[2021-05-17] MEDS ORDERED: diazePAM 5 MG TABLET PO SCH (06:00)
[2021-05-18] MEDS ORDERED: diazePAM 5 MG TABLET PO ONE (06:00)
== END 2021-05-16 16:10 | disposition left against medical advice (07) | DRG 770 ==
LOC: YASAS 13:25 → Y3N 22:05
PROVIDERS: ADMIT Allergy & Immunology; ATTEND Allergy & Immunology
PROC: HZ2ZZZZ Detoxification Services for Substance Abuse Treatment (ICD-10-PCS; principal; 2021-05-14)
DX: F10.230 Alcohol dependence with withdrawal, uncomplicated (principal); F11.20 Opioid dependence, uncomplicated; F14.20 Cocaine dependence, uncomplicated; F13.20 Sedative, hypnotic or anxiolytic dependence, uncomplicated; F12.10 Cannabis abuse, uncomplicated; F17.210 Nicotine dependence, cigarettes, uncomplicated; F19.24 Other psychoactive substance dependence with psychoactive substance-induced mood disorder; I10 Essential (primary) hypertension; E78.5 Hyperlipidemia, unspecified; N40.0 Benign prostatic hyperplasia without lower urinary tract symptoms; R00.0 Tachycardia, unspecified; Z86.19 Personal history of other infectious and parasitic diseases
CPT/HCPCS: C9803; U0003; U0005

== ENCOUNTER 2021-07-20 09:56 | Inpatient (IN) | payer OTHER ==
[2021-07-20 10:46] VITALS: BMI 30.2
[2021-07-20] MEDS ORDERED: MAG HYDROX/AL HYDROX/SIMETH 30 ML UNIT-DOSE CUP PO PRN (11:21)
[2021-07-20] MEDS ORDERED: MAGNESIUM CITRATE 300 ML BOTTLE PO PRN (11:21)
[2021-07-20] MEDS ORDERED: MAGNESIUM HYDROX 2400MG/30ML ORAL SUSPENSION 30 ML CUP PO PRN (11:21)
[2021-07-20] MEDS ORDERED: MENTHOL/PHENOL 1 EACH UD MM PRN (11:21)
[2021-07-20] MEDS ORDERED: diazePAM 5 MG TABLET PO PRN (11:21)
[2021-07-20] MEDS ORDERED: METHOCARBAMOL 500 MG TABLET PO PRN (11:21)
[2021-07-20] MEDS ORDERED: NICOTINE 10 MG CARTRIDGE (INHALER) IH PRN (11:21)
[2021-07-20] MEDS ORDERED: ONDANSETRON *ODT* 4 MG TABLET SL PRN (11:21)
[2021-07-20] MEDS ORDERED: IBUPROFEN 400 MG TABLET (FP) PO PRN (11:21)
[2021-07-20] MEDS ORDERED: BISMUTH SUBSALICYLATE 524 MG/30 ML PO PRN (11:21)
[2021-07-20] MEDS ORDERED: ACETAMINOPHEN 325 MG TABLET (FP) PO PRN ×2 (11:21)
[2021-07-20] MEDS: NICOTINE 14 MG/24 HOURS TOPICAL PATCH TD SCH (12:24)
[2021-07-20] MEDS: PRENATAL VITAMINS W/ FOLIC ACID TABLET (FP) PO SCH (12:25)
[2021-07-20] MEDS: hydrOXYzine PAMOATE 25 MG CAPSULE (FP) PO SCH ×3 (13:53→22:28)
[2021-07-20 15:10] LABS: HEMATOCRIT 35.8 % (35.4-49); MCH 28.2 pg (25.7-33.7); MCHC 33.4 g/dl (32.0-35.9); MEAN CELL VOLUME 84.4 fl (80-96); MEAN PLT VOLUME 7.9 fl (7.5-11.1); PLATELET COUNT 223 10^3/uL (134-434); RBC 4.24 M/mm3 (4.00-5.60); RDW 15.6 % (11.9-15.9); WHITE BLOOD COUNT 3.2 K/mm3 (4.0-10.0)
[2021-07-20 15:22] LABS: BLOOD UREA NITROGEN 14.7 mg/dL (7-18); CALCIUM 9.1 mg/dL (8.5-10.1)
[2021-07-20 15:23] LABS: ALBUMIN 3.6 g/dl (3.4-5.0)
[2021-07-20 15:26] LABS: CREATININE 0.9 mg/dL (0.55-1.3)
[2021-07-20 15:28] LABS: TOT PROT 7.1 g/dl (6.4-8.2)
[2021-07-20 15:30] LABS: BILIRUBIN,TOTAL 0.2 mg/dL (0.2-1)
[2021-07-20] MEDS: diazePAM 5 MG TABLET PO SCH ×2 (18:30→22:26)
[2021-07-20] MEDS: THIAMINE HCL 100 MG TABLET (FP) PO SCH (22:28)
[2021-07-20] MEDS: MELATONIN 5 MG TABLETS PO SCH (22:29)
[2021-07-21] MEDS: diazePAM 5 MG TABLET PO SCH ×4 (06:10→23:04)
[2021-07-21] MEDS: methaDONE HCL 40 MG DISPERSABLE TABLET PO SCH (06:10)
[2021-07-21] MEDS: hydrOXYzine PAMOATE 25 MG CAPSULE (FP) PO SCH ×5 (06:11→23:04)
[2021-07-21] MEDS: PRENATAL VITAMINS W/ FOLIC ACID TABLET (FP) PO SCH (10:33)
[2021-07-21] MEDS: NICOTINE 14 MG/24 HOURS TOPICAL PATCH TD SCH (10:34)
[2021-07-21] MEDS ORDERED: MASKS NR ONE ×2 (13:46→13:47)
[2021-07-21] MEDS ORDERED: cloNIDine HCL 0.1 MG TABLET PO ONE (14:30)
[2021-07-21] MEDS: THIAMINE HCL 100 MG TABLET (FP) PO SCH (23:05)
[2021-07-21] MEDS: MELATONIN 5 MG TABLETS PO SCH (23:05)
[2021-07-22] MEDS ORDERED: diazePAM 5 MG TABLET PO SCH (06:00)
[2021-07-22] MEDS: methaDONE HCL 40 MG DISPERSABLE TABLET PO SCH (06:10)
[2021-07-22] MEDS: hydrOXYzine PAMOATE 25 MG CAPSULE (FP) PO SCH (06:13)
[2021-07-22 06:22] VITALS: BP 135/78; PULSE 84; TEMP 97.2
[2021-07-23] MEDS ORDERED: diazePAM 5 MG TABLET PO SCH (06:00)
[2021-07-24] MEDS ORDERED: diazePAM 5 MG TABLET PO ONE (06:00)
== END 2021-07-22 06:44 | disposition left against medical advice (07) | DRG 770 ==
LOC: YASAS 09:56 → Y3N 11:27
PROVIDERS: ADMIT Allergy & Immunology; ATTEND Allergy & Immunology
PROC: HZ2ZZZZ Detoxification Services for Substance Abuse Treatment (ICD-10-PCS; principal; 2021-07-20)
DX: F10.230 Alcohol dependence with withdrawal, uncomplicated (principal); F11.20 Opioid dependence, uncomplicated; F13.20 Sedative, hypnotic or anxiolytic dependence, uncomplicated; F14.20 Cocaine dependence, uncomplicated; F12.10 Cannabis abuse, uncomplicated; F17.210 Nicotine dependence, cigarettes, uncomplicated; F19.24 Other psychoactive substance dependence with psychoactive substance-induced mood disorder; F41.9 Anxiety disorder, unspecified; A53.0 Latent syphilis, unspecified as early or late; E78.00 Pure hypercholesterolemia, unspecified; I10 Essential (primary) hypertension; N40.0 Benign prostatic hyperplasia without lower urinary tract symptoms; Z86.19 Personal history of other infectious and parasitic diseases
CPT/HCPCS: 36415; 80053; 85027; 86593; 86780; C9803; J0735; U0003; U0005

== ENCOUNTER 2021-11-17 09:21 | Inpatient (IN) | payer OTHER ==
[2021-11-17 10:02] VITALS: BMI 30.1
[2021-11-17] MEDS ORDERED: ONDANSETRON *ODT* 4 MG TABLET SL PRN (10:24)
[2021-11-17] MEDS ORDERED: MAG HYDROX/AL HYDROX/SIMETH 30 ML UNIT-DOSE CUP PO PRN (10:24)
[2021-11-17] MEDS ORDERED: MENTHOL/PHENOL 1 EACH UD MM PRN (10:24)
[2021-11-17] MEDS ORDERED: ACETAMINOPHEN 325 MG TABLET (FP) PO PRN ×2 (10:24)
[2021-11-17] MEDS ORDERED: MAGNESIUM CITRATE 300 ML BOTTLE PO PRN (10:24)
[2021-11-17] MEDS ORDERED: BISMUTH SUBSALICYLATE 262 MG/15 ML BTL PO PRN (10:24)
[2021-11-17] MEDS ORDERED: NICOTINE POLACRILEX 2 MG GUM BUC PRN (10:24)
[2021-11-17] MEDS ORDERED: MAGNESIUM HYDROX 2400MG/30ML ORAL SUSPENSION 30 ML CUP PO PRN (10:24)
[2021-11-17] MEDS ORDERED: cloNIDine HCL 0.1 MG TABLET PO SCH (10:30)
[2021-11-17 13:51] LABS: HEMATOCRIT 38.1 % (35.4-49); HEMOGLOBIN 12.1 GM/dL (11.7-16.9); MCHC 31.8 g/dl (32.0-35.9); PLATELET COUNT 256 10^3/uL (134-434); RBC 4.49 M/mm3 (4.00-5.60); RDW 14.9 % (11.9-15.9)
[2021-11-17 14:05] LABS: CALCIUM 9.4 mg/dL (8.5-10.1)
[2021-11-17 14:06] LABS: ALBUMIN 3.5 g/dl (3.4-5.0); BLOOD UREA NITROGEN 15.8 mg/dL (7-18)
[2021-11-17 14:09] LABS: CREATININE 1.1 mg/dL (0.55-1.3)
[2021-11-17 14:10] LABS: BILIRUBIN,TOTAL 0.5 mg/dL (0.2-1); TOT PROT 6.9 g/dl (6.4-8.2)
[2021-11-17] MEDS: NAPROXEN 500 MG TABLET PO SCH ×2 (15:23→22:36)
[2021-11-17] MEDS ORDERED: diazePAM 5 MG TABLET PO ONE (19:51)
[2021-11-17] MEDS ORDERED: diazePAM 5 MG TABLET PO PRN (19:51)
[2021-11-17] MEDS ORDERED: MELATONIN 5 MG TABLETS PO SCH (22:00)
[2021-11-17] MEDS ORDERED: THIAMINE HCL 100 MG TABLET (FP) PO SCH (22:00)
[2021-11-17] MEDS: cloNIDine HCL 0.1 MG TABLET PO SCH (22:36)
[2021-11-17] MEDS: diazePAM 5 MG TABLET PO SCH (23:00)
[2021-11-18] MEDS ORDERED: methaDONE HCL 40 MG DISPERSABLE TABLET PO SCH (06:00)
[2021-11-18] MEDS: diazePAM 5 MG TABLET PO SCH ×3 (06:49→10:36)
[2021-11-18 07:20] VITALS: TEMP 97.1
[2021-11-18 09:30] VITALS: BP 116/73; PULSE 71
[2021-11-18] MEDS ORDERED: PRENATAL VITAMINS W/ FOLIC ACID TABLET (FP) PO SCH (10:00)
[2021-11-18] MEDS: NAPROXEN 500 MG TABLET PO SCH (10:35)
[2021-11-18] MEDS: cloNIDine HCL 0.1 MG TABLET PO SCH (10:35)
[2021-11-19] MEDS ORDERED: diazePAM 5 MG TABLET PO SCH (06:00)
[2021-11-20] MEDS ORDERED: diazePAM 5 MG TABLET PO SCH (06:00)
[2021-11-21] MEDS ORDERED: diazePAM 5 MG TABLET PO ONE (06:00)
== END 2021-11-18 12:10 | disposition left against medical advice (07) | DRG 770 ==
LOC: YASAS 09:21 → Y6N 14:20
PROVIDERS: ADMIT Allergy & Immunology; ATTEND Allergy & Immunology
PROC: HZ2ZZZZ Detoxification Services for Substance Abuse Treatment (ICD-10-PCS; principal; 2021-11-17)
DX: F10.230 Alcohol dependence with withdrawal, uncomplicated (principal); F11.20 Opioid dependence, uncomplicated; F12.10 Cannabis abuse, uncomplicated; F17.210 Nicotine dependence, cigarettes, uncomplicated; F41.9 Anxiety disorder, unspecified; I10 Essential (primary) hypertension; E78.5 Hyperlipidemia, unspecified; Z86.19 Personal history of other infectious and parasitic diseases; Z56.0 Unemployment, unspecified
CPT/HCPCS: 36415; 80053; 85027; 86593; 86780; C9803-CS; Q0162; U0003; U0005

== ENCOUNTER 2022-02-12 11:57 | Inpatient (IN) | payer OTHER ==
[2022-02-12] MEDS ORDERED: ONDANSETRON *ODT* 4 MG TABLET SL PRN (13:49)
[2022-02-12] MEDS ORDERED: MENTHOL/PHENOL 1 EACH UD MM PRN (13:49)
[2022-02-12] MEDS ORDERED: METHOCARBAMOL 500 MG TABLET PO PRN (13:49)
[2022-02-12] MEDS ORDERED: LOPERAMIDE HCL 2 MG CAPSULE PO PRN (13:49)
[2022-02-12] MEDS ORDERED: BISMUTH SUBSALICYLATE 524 MG/30 ML PO PRN (13:49)
[2022-02-12] MEDS ORDERED: MAG HYDROX/AL HYDROX/SIMETH 30 ML UNIT-DOSE CUP PO PRN (13:49)
[2022-02-12] MEDS ORDERED: IBUPROFEN 400 MG TABLET (FP) PO PRN (13:49)
[2022-02-12] MEDS ORDERED: NICOTINE POLACRILEX 2 MG GUM BUC PRN (13:49)
[2022-02-12] MEDS ORDERED: MAGNESIUM CITRATE 300 ML BOTTLE PO PRN (13:49)
[2022-02-12] MEDS ORDERED: MAGNESIUM HYDROX 2400MG/30ML ORAL SUSPENSION 30 ML CUP PO PRN (13:49)
[2022-02-12] MEDS ORDERED: MELATONIN 5 MG TABLETS PO PRN (13:49)
[2022-02-12] MEDS ORDERED: ACETAMINOPHEN 325 MG TABLET (FP) PO PRN ×2 (13:49)
[2022-02-12] MEDS ORDERED: DICYCLOMINE HCL 10 MG CAPSULE PO PRN (13:49)
[2022-02-12] MEDS ORDERED: hydrOXYzine PAMOATE 25 MG CAPSULE (FP) PO PRN (13:49)
[2022-02-12 14:04] VITALS: BMI 32.5
[2022-02-12] MEDS ORDERED: THIAMINE HCL 100 MG TABLET (FP) PO SCH (22:00)
[2022-02-13] MEDS ORDERED: methaDONE HCL 40 MG DISPERSABLE TABLET PO SCH (09:00)
[2022-02-13] MEDS ORDERED: PRENATAL VITAMINS W/ FOLIC ACID TABLET (FP) PO SCH (10:00)
[2022-02-13 14:37] LABS: HEMOGLOBIN 11.4 GM/dL (11.7-16.9); MCHC 31.7 g/dl (32.0-35.9); MEAN CELL VOLUME 85.2 fl (80-96); MEAN PLT VOLUME 8.2 fl (7.5-11.1); PLATELET COUNT 218 10^3/uL (134-434); RBC 4.23 M/mm3 (4.00-5.60); RDW 15.2 % (11.9-15.9); WHITE BLOOD COUNT 2.8 K/mm3 (4.0-10.0)
[2022-02-13 14:52] LABS: CALCIUM 8.6 mg/dL (8.5-10.1)
[2022-02-13 14:54] LABS: ALBUMIN 3.4 g/dl (3.4-5.0); BLOOD UREA NITROGEN 16.2 mg/dL (7-18)
[2022-02-13 14:57] LABS: BILIRUBIN,TOTAL 0.4 mg/dL (0.2-1); TOT PROT 6.6 g/dl (6.4-8.2)
[2022-02-13 17:44] VITALS: BP 122/69; PULSE 83; TEMP 97.3
[2022-02-14 16:09] LABS: SARS-CoV-2 NAA Not Detected (Not Detected)
== END 2022-02-13 17:07 | disposition home or self-care (01) | DRG 897 ==
LOC: YASAS 11:57 → UNDOADMIN 13:38 → Y3N 13:38
PROVIDERS: ADMIT Allergy & Immunology; ATTEND Allergy & Immunology
PROC: HZ2ZZZZ Detoxification Services for Substance Abuse Treatment (ICD-10-PCS; principal; 2022-02-12)
DX: F10.230 Alcohol dependence with withdrawal, uncomplicated (principal); F11.20 Opioid dependence, uncomplicated; F14.20 Cocaine dependence, uncomplicated; F12.20 Cannabis dependence, uncomplicated; F17.210 Nicotine dependence, cigarettes, uncomplicated; F41.9 Anxiety disorder, unspecified; E78.5 Hyperlipidemia, unspecified; I10 Essential (primary) hypertension; N40.0 Benign prostatic hyperplasia without lower urinary tract symptoms; Z86.19 Personal history of other infectious and parasitic diseases
CPT/HCPCS: 36415; 80053; 85027; 87811; C9803-CS; U0003; U0005

== ENCOUNTER 2022-05-29 08:40 | Inpatient (IN) | payer MEDICARE, OTHER ==
[2022-05-29] MEDS ORDERED: MAGNESIUM CITRATE 300 ML BOTTLE PO PRN (09:24)
[2022-05-29] MEDS ORDERED: NALOXONE HCL (KLOXXADO) 8 MG SPRAY NS PRN (09:24)
[2022-05-29] MEDS ORDERED: NICOTINE 10 MG CARTRIDGE (INHALER) IH PRN (09:24)
[2022-05-29] MEDS ORDERED: MAGNESIUM HYDROX 2400MG/30ML ORAL SUSPENSION 30 ML CUP PO PRN (09:24)
[2022-05-29] MEDS ORDERED: LOPERAMIDE HCL 2 MG CAPSULE PO PRN (09:24)
[2022-05-29] MEDS ORDERED: MAG HYDROX/AL HYDROX/SIMETH 30 ML UNIT-DOSE CUP PO PRN (09:24)
[2022-05-29] MEDS ORDERED: guaiFENesin 200 MG/10 ML 10 ML UNIT-DOSE CUPS PO PRN (09:24)
[2022-05-29] MEDS ORDERED: IBUPROFEN 400 MG TABLET (FP) PO PRN (09:24)
[2022-05-29] MEDS ORDERED: ACETAMINOPHEN 325 MG TABLET (FP) PO PRN (09:24)
[2022-05-29] MEDS ORDERED: P-EPHED 60MG/TRIPROLIDI 2.5MG TABLET PO PRN (09:24)
[2022-05-29 09:29] VITALS: BMI 32.8
[2022-05-29] MEDS: NICOTINE 7 MG/24 HOURS TOPICAL PATCH TD SCH (13:24)
[2022-05-29] MEDS: hydrOXYzine PAMOATE 25 MG CAPSULE (FP) PO SCH ×4 (13:24→21:38)
[2022-05-29] MEDS: PRENATAL VITAMINS W/ FOLIC ACID TABLET (FP) PO SCH (13:24)
[2022-05-29] MEDS: MELATONIN 5 MG TABLETS PO SCH (21:38)
[2022-05-29] MEDS: THIAMINE HCL 100 MG TABLET (FP) PO SCH (21:38)
[2022-05-30] MEDS ORDERED: methaDONE HCL 10 MG TABLET PO SCH (06:00)
[2022-05-30] MEDS ORDERED: methaDONE HCL 40 MG DISPERSABLE TABLET ONE (06:04)
[2022-05-30] MEDS ORDERED: methaDONE HCL 10 MG TABLET ONE (06:04)
[2022-05-30] MEDS: methaDONE 80 MG, methaDONE 10 MG PO SCH (07:23)
[2022-05-30] MEDS: hydrOXYzine PAMOATE 25 MG CAPSULE (FP) PO SCH ×2 (07:24→10:03)
[2022-05-30] MEDS: PRENATAL VITAMINS W/ FOLIC ACID TABLET (FP) PO SCH (10:00)
[2022-05-30] MEDS: NICOTINE 7 MG/24 HOURS TOPICAL PATCH TD SCH (10:00)
[2022-05-30] MEDS ORDERED: BACLOFEN 10 MG TABLET (FP) PO PRN (11:35)
[2022-05-30] MEDS ORDERED: hydrOXYzine PAMOATE 25 MG CAPSULE (FP) PO PRN (11:39)
[2022-05-30] MEDS ORDERED: LIDOCAINE 5% TOPICAL PATCH TP ONE (11:40)
[2022-05-30] MEDS ORDERED: LISINOPRIL 5 MG TABLET PO SCH (11:45)
[2022-05-30] MEDS: GABAPENTIN 300 MG CAPSULE PO SCH ×2 (13:01→21:37)
[2022-05-30] MEDS: MELATONIN 5 MG TABLETS PO SCH (21:37)
[2022-05-30] MEDS: THIAMINE HCL 100 MG TABLET (FP) PO SCH (21:37)
[2022-05-30] MEDS ORDERED: LIDOCAINE PATCH REMOVAL MC SCH (22:00)
[2022-05-31] MEDS ORDERED: methaDONE HCL 40 MG DISPERSABLE TABLET ONE (03:15)
[2022-05-31] MEDS ORDERED: methaDONE HCL 10 MG TABLET ONE (03:15)
[2022-05-31] MEDS ORDERED: methaDONE HCL 40 MG DISPERSABLE TABLET PO SCH (06:00)
[2022-05-31] MEDS: methaDONE 80 MG, methaDONE 10 MG PO SCH (06:07)
[2022-05-31] MEDS: GABAPENTIN 300 MG CAPSULE PO SCH (06:07)
[2022-05-31 06:35] VITALS: BP 171/91; PULSE 63; TEMP 96.9
[2022-05-31] MEDS ORDERED: LISINOPRIL 5 MG TABLET PO ONE (07:15)
== END 2022-05-31 07:21 | disposition left against medical advice (07) | DRG 894 ==
LOC: YASAS 08:40 → Y3E 11:35
PROVIDERS: ADMIT Allergy & Immunology; ATTEND Psychiatry & Neurology Pain Medicine
PROC: HZ42ZZZ Group Counseling for Substance Abuse Treatment, Cognitive-Behavioral (ICD-10-PCS; principal; 2022-05-29)
DX: F11.20 Opioid dependence, uncomplicated (principal); F14.20 Cocaine dependence, uncomplicated; F13.20 Sedative, hypnotic or anxiolytic dependence, uncomplicated; F10.20 Alcohol dependence, uncomplicated; F12.10 Cannabis abuse, uncomplicated; F17.210 Nicotine dependence, cigarettes, uncomplicated; F19.24 Other psychoactive substance dependence with psychoactive substance-induced mood disorder; F41.9 Anxiety disorder, unspecified; I10 Essential (primary) hypertension; E78.5 Hyperlipidemia, unspecified; M54.50 Low back pain, unspecified; G89.29 Other chronic pain; N40.0 Benign prostatic hyperplasia without lower urinary tract symptoms; Z86.19 Personal history of other infectious and parasitic diseases
CPT/HCPCS: C9803-CS; U0003; U0005

== ENCOUNTER 2023-01-27 09:50 | Inpatient (IN) | payer OTHER ==
[2023-01-27 11:07] VITALS: BMI 32.9
[2023-01-27] MEDS ORDERED: IBUPROFEN 600 MG TABLET (FP) PO PRN (11:33)
[2023-01-27] MEDS ORDERED: BISMUTH SUBSALICYLATE 524 MG/30 ML PO PRN (11:33)
[2023-01-27] MEDS ORDERED: guaiFENesin 600 MG TABLET.ER (FP) PO PRN (11:33)
[2023-01-27] MEDS ORDERED: POLYETHYLENE GLYCOL (HEALTHYLAX) 3350 17 GM PACKET PO PRN (11:33)
[2023-01-27] MEDS ORDERED: BACLOFEN 10 MG TABLET (FP) PO PRN (11:33)
[2023-01-27] MEDS ORDERED: IBUPROFEN 400 MG TABLET (FP) PO PRN (11:33)
[2023-01-27] MEDS ORDERED: DICYCLOMINE HCL 10 MG CAPSULE PO PRN (11:33)
[2023-01-27] MEDS ORDERED: ONDANSETRON *ODT* 4 MG TABLET SL PRN (11:33)
[2023-01-27] MEDS ORDERED: LOPERAMIDE HCL 2 MG CAPSULE PO PRN (11:33)
[2023-01-27] MEDS ORDERED: NALOXONE HCL (KLOXXADO) 8 MG SPRAY NS PRN (11:33)
[2023-01-27] MEDS ORDERED: hydrOXYzine PAMOATE 25 MG CAPSULE (FP) PO PRN (11:33)
[2023-01-27] MEDS ORDERED: MAG HYDROX/AL HYDROX/SIMETH 30 ML UNIT-DOSE CUP PO PRN (11:33)
[2023-01-27] MEDS ORDERED: MAGNESIUM HYDROX 2400MG/30ML ORAL SUSPENSION 30 ML CUP PO PRN (11:33)
[2023-01-27] MEDS ORDERED: NALOXONE HCL 0.4 MG/ML VIAL IM PRN (11:33)
[2023-01-27] MEDS ORDERED: BENZONATATE 200 MG CAPSULE PO PRN (11:33)
[2023-01-27] MEDS ORDERED: ACETAMINOPHEN 325 MG TABLET (FP) PO PRN (11:33)
[2023-01-27] MEDS ORDERED: NICOTINE 10 MG CARTRIDGE (INHALER) IH PRN (11:33)
[2023-01-27] MEDS ORDERED: BENZOCAINE/MENTHOL (CHLORASEPTIC ) LOZENGE MM PRN (11:33)
[2023-01-27] MEDS ORDERED: LORazepam 1 MG TABLET PO PRN (14:26)
[2023-01-27] MEDS ORDERED: LORazepam 2 MG TABLET PO SCH (17:00)
[2023-01-27] MEDS: LORazepam 1 MG TABLET PO SCH ×2 (17:19→22:25)
[2023-01-27] MEDS: THIAMINE HCL 100 MG TABLET (FP) PO SCH (21:57)
[2023-01-27] MEDS: MELATONIN 5 MG TABLETS PO SCH (21:57)
[2023-01-28] MEDS: LORazepam 1 MG TABLET PO SCH ×4 (05:58→22:34)
[2023-01-28] MEDS ORDERED: methaDONE HCL 10 MG TABLET PO SCH (06:00)
[2023-01-28] MEDS: methaDONE 80 MG, methaDONE 10 MG PO SCH (06:13)
[2023-01-28] MEDS: PRENATAL VITAMINS W/ FOLIC ACID TABLET (FP) PO SCH (10:20)
[2023-01-28] MEDS: NICOTINE 14 MG/24 HOURS TOPICAL PATCH TD SCH (10:20)
[2023-01-28] MEDS: MELATONIN 5 MG TABLETS PO SCH (22:34)
[2023-01-28] MEDS: THIAMINE HCL 100 MG TABLET (FP) PO SCH (22:35)
[2023-01-29] MEDS: methaDONE 80 MG, methaDONE 10 MG PO SCH (05:52)
[2023-01-29] MEDS: LORazepam 1 MG TABLET PO SCH ×2 (05:53→10:15)
[2023-01-29] MEDS: NICOTINE 14 MG/24 HOURS TOPICAL PATCH TD SCH (10:14)
[2023-01-29] MEDS: PRENATAL VITAMINS W/ FOLIC ACID TABLET (FP) PO SCH (10:14)
[2023-01-29] MEDS ORDERED: diazePAM 5 MG TABLET PO PRN (11:46)
[2023-01-29 12:05] LABS: HEMATOCRIT 34.9 % (35.4-49); HEMOGLOBIN 11.9 GM/dL (11.7-16.9); MCH 28.1 pg (25.7-33.7); MEAN CELL VOLUME 82.7 fl (80-96); MEAN PLT VOLUME 7.9 fl (7.5-11.1); PLATELET COUNT 234 10^3/uL (134-434); RBC 4.22 M/mm3 (4.00-5.60); RDW 14.4 % (11.9-15.9); WHITE BLOOD COUNT 3.1 K/mm3 (4.0-10.0)
[2023-01-29 12:34] LABS: ALBUMIN 3.3 g/dl (3.4-5.0); BLOOD UREA NITROGEN 15.1 mg/dL (7-18)
[2023-01-29 12:38] LABS: BILIRUBIN,TOTAL 0.3 mg/dL (0.2-1); TOT PROT 6.5 g/dl (6.4-8.2)
[2023-01-29] MEDS ORDERED: diazePAM 5 MG TABLET PO SCH (14:00)
[2023-01-29 18:52] VITALS: BP 157/95; PULSE 85; RESP 18; TEMP 96.9
[2023-01-30] MEDS ORDERED: LORazepam 0.5 MG TABLET PO PRN
[2023-01-30] MEDS ORDERED: LORazepam 0.5 MG TABLET PO SCH (05:00)
[2023-01-30] MEDS ORDERED: diazePAM 5 MG TABLET PO SCH (10:00)
[2023-01-31] MEDS ORDERED: LORazepam 0.5 MG TABLET PO ONE (05:00)
== END 2023-01-29 17:39 | disposition left against medical advice (07) | DRG 894 ==
LOC: YASAS 09:50 → Y3N 11:48
PROVIDERS: ADMIT Allergy & Immunology; ATTEND Surgery
PROC: HZ2ZZZZ Detoxification Services for Substance Abuse Treatment (ICD-10-PCS; principal; 2023-01-27)
DX: F10.230 Alcohol dependence with withdrawal, uncomplicated (principal); F11.20 Opioid dependence, uncomplicated; F14.20 Cocaine dependence, uncomplicated; F12.20 Cannabis dependence, uncomplicated; F17.210 Nicotine dependence, cigarettes, uncomplicated; F19.24 Other psychoactive substance dependence with psychoactive substance-induced mood disorder; M25.461 Effusion, right knee; N40.0 Benign prostatic hyperplasia without lower urinary tract symptoms; Z86.19 Personal history of other infectious and parasitic diseases
CPT/HCPCS: 36415; 80053; 85027; 86593; 86780; 87811; C9803-CS; U0003; U0005

== ENCOUNTER 2023-03-23 09:47 | Inpatient (IN) | payer OTHER ==
[2023-03-23 10:01] VITALS: BMI 33.6
[2023-03-23] MEDS ORDERED: IBUPROFEN 400 MG TABLET (FP) PO PRN (11:32)
[2023-03-23] MEDS ORDERED: DICYCLOMINE HCL 10 MG CAPSULE PO PRN (11:32)
[2023-03-23] MEDS ORDERED: LOPERAMIDE HCL 2 MG CAPSULE PO PRN (11:32)
[2023-03-23] MEDS ORDERED: BISMUTH SUBSALICYLATE 262 MG/15 ML BTL PO PRN (11:32)
[2023-03-23] MEDS ORDERED: POLYETHYLENE GLYCOL (HEALTHYLAX) 3350 17 GM PACKET PO PRN (11:32)
[2023-03-23] MEDS ORDERED: guaiFENesin 600 MG TABLET.ER (FP) PO PRN (11:32)
[2023-03-23] MEDS ORDERED: BENZONATATE 200 MG CAPSULE PO PRN (11:32)
[2023-03-23] MEDS ORDERED: ONDANSETRON *ODT* 4 MG TABLET SL PRN (11:32)
[2023-03-23] MEDS ORDERED: NALOXONE HCL 0.4 MG/ML VIAL IM PRN (11:32)
[2023-03-23] MEDS ORDERED: AMMONIUM LACTATE 12% LOTION 225 GM BOTTLE TP PRN (11:32)
[2023-03-23] MEDS ORDERED: ACETAMINOPHEN 325 MG TABLET (FP) PO PRN (11:32)
[2023-03-23] MEDS ORDERED: BENZOCAINE/MENTHOL (CHLORASEPTIC ) LOZENGE MM PRN (11:32)
[2023-03-23] MEDS ORDERED: NALOXONE HCL (KLOXXADO) 8 MG SPRAY NS PRN (11:32)
[2023-03-23] MEDS ORDERED: MAG HYDROX/AL HYDROX/SIMETH 30 ML UNIT-DOSE CUP PO PRN (11:32)
[2023-03-23] MEDS ORDERED: COLLOIDAL OATMEAL 1 BAR EACH TP PRN (11:32)
[2023-03-23] MEDS ORDERED: MAGNESIUM HYDROX 2400MG/30ML ORAL SUSPENSION 30 ML CUP PO PRN (11:32)
[2023-03-23] MEDS ORDERED: NICOTINE 10 MG CARTRIDGE (INHALER) IH PRN (11:32)
[2023-03-23] MEDS: NICOTINE 21 MG/24 HOURS TOPICAL PATCH TD SCH (12:44)
[2023-03-23] MEDS: amLODIPine BESYLATE 5 MG TABLET (FP) PO SCH (13:50)
[2023-03-23 15:25] LABS: HEMATOCRIT 34.1 % (35.4-49); HEMOGLOBIN 11.2 GM/dL (11.7-16.9); MCH 27.6 pg (25.7-33.7); MEAN CELL VOLUME 83.6 fl (80-96); MEAN PLT VOLUME 7.9 fl (7.5-11.1); PLATELET COUNT 283 10^3/uL (134-434); RBC 4.08 M/mm3 (4.00-5.60); RDW 15.1 % (11.9-15.9); WHITE BLOOD COUNT 4.1 K/mm3 (4.0-10.0)
[2023-03-23 15:26] LABS: POTASSIUM 3.9 mmol/L (3.5-5.1)
[2023-03-23 15:28] LABS: CALCIUM 9.5 mg/dL (8.5-10.1)
[2023-03-23 15:29] LABS: ALBUMIN 3.4 g/dl (3.4-5.0); BLOOD UREA NITROGEN 16.2 mg/dL (7-18)
[2023-03-23 15:32] LABS: CREATININE 0.8 mg/dL (0.55-1.3)
[2023-03-23 15:34] LABS: BILIRUBIN,TOTAL 0.5 mg/dL (0.2-1); TOT PROT 6.9 g/dl (6.4-8.2)
[2023-03-23] MEDS: diazePAM 5 MG TABLET PO PRN (19:27)
[2023-03-23] MEDS: THIAMINE HCL 100 MG TABLET (FP) PO SCH (23:34)
[2023-03-23] MEDS: MELATONIN 5 MG TABLETS PO SCH (23:34)
[2023-03-23] MEDS: diazePAM 5 MG TABLET PO SCH (23:34)
[2023-03-24] MEDS ORDERED: methaDONE HCL 40 MG DISPERSABLE TABLET PO SCH (06:00)
[2023-03-24] MEDS: methaDONE 80 MG, methaDONE 10 MG PO SCH (06:15)
[2023-03-24] MEDS: diazePAM 5 MG TABLET PO SCH ×4 (06:16→22:12)
[2023-03-24] MEDS: PRENATAL VITAMINS W/ FOLIC ACID TABLET (FP) PO SCH (11:08)
[2023-03-24] MEDS: NICOTINE 21 MG/24 HOURS TOPICAL PATCH TD SCH (11:08)
[2023-03-24] MEDS: IBUPROFEN 600 MG TABLET (FP) PO PRN (11:09)
[2023-03-24] MEDS: amLODIPine BESYLATE 5 MG TABLET (FP) PO SCH (11:09)
[2023-03-24] MEDS: THIAMINE HCL 100 MG TABLET (FP) PO SCH (22:12)
[2023-03-24] MEDS: MELATONIN 5 MG TABLETS PO SCH (22:12)
[2023-03-25] MEDS: diazePAM 5 MG TABLET PO SCH ×4 (06:08→22:45)
[2023-03-25] MEDS: methaDONE 80 MG, methaDONE 10 MG PO SCH (06:09)
[2023-03-25] MEDS: PRENATAL VITAMINS W/ FOLIC ACID TABLET (FP) PO SCH (10:08)
[2023-03-25] MEDS: NICOTINE 21 MG/24 HOURS TOPICAL PATCH TD SCH (10:08)
[2023-03-25] MEDS: IBUPROFEN 600 MG TABLET (FP) PO PRN (10:08)
[2023-03-25] MEDS: amLODIPine BESYLATE 5 MG TABLET (FP) PO SCH (10:08)
[2023-03-25] MEDS: diazePAM 5 MG TABLET PO PRN ×2 (10:10→18:56)
[2023-03-25] MEDS: MELATONIN 5 MG TABLETS PO SCH (22:43)
[2023-03-25] MEDS: THIAMINE HCL 100 MG TABLET (FP) PO SCH (22:43)
[2023-03-26] MEDS: diazePAM 5 MG TABLET PO SCH ×2 (06:19→18:14)
[2023-03-26] MEDS: methaDONE 80 MG, methaDONE 10 MG PO SCH (07:28)
[2023-03-26] MEDS: diazePAM 5 MG TABLET PO PRN ×2 (08:09→12:11)
[2023-03-26] MEDS: amLODIPine BESYLATE 5 MG TABLET (FP) PO SCH (10:38)
[2023-03-26] MEDS: NICOTINE 21 MG/24 HOURS TOPICAL PATCH TD SCH (10:38)
[2023-03-26] MEDS: PRENATAL VITAMINS W/ FOLIC ACID TABLET (FP) PO SCH (10:38)
[2023-03-26 17:33] VITALS: RESP 18
[2023-03-26] MEDS: THIAMINE HCL 100 MG TABLET (FP) PO SCH (22:54)
[2023-03-26] MEDS: MELATONIN 5 MG TABLETS PO SCH (22:54)
[2023-03-27] MEDS ORDERED: diazePAM 5 MG TABLET PO ONE (06:00)
[2023-03-27] MEDS: methaDONE 80 MG, methaDONE 10 MG PO SCH (06:59)
[2023-03-27 09:39] VITALS: BP 138/111; PULSE 81; TEMP 97.6
[2023-03-27] MEDS: PRENATAL VITAMINS W/ FOLIC ACID TABLET (FP) PO SCH (10:46)
[2023-03-27] MEDS: amLODIPine BESYLATE 5 MG TABLET (FP) PO SCH (10:46)
[2023-03-27] MEDS: NICOTINE 21 MG/24 HOURS TOPICAL PATCH TD SCH (10:47)
== END 2023-03-27 10:50 | disposition other institution (70) | DRG 897 ==
LOC: YASAS 09:47 → Y6N 11:33 → UNDOADMIN 11:33
PROVIDERS: ADMIT Allergy & Immunology; ATTEND Surgery
PROC: HZ2ZZZZ Detoxification Services for Substance Abuse Treatment (ICD-10-PCS; principal; 2023-03-23)
DX: F10.230 Alcohol dependence with withdrawal, uncomplicated (principal); F11.20 Opioid dependence, uncomplicated; F14.20 Cocaine dependence, uncomplicated; F13.20 Sedative, hypnotic or anxiolytic dependence, uncomplicated; F17.210 Nicotine dependence, cigarettes, uncomplicated; G62.9 Polyneuropathy, unspecified; E78.5 Hyperlipidemia, unspecified; I10 Essential (primary) hypertension; N40.0 Benign prostatic hyperplasia without lower urinary tract symptoms; Z86.19 Personal history of other infectious and parasitic diseases
CPT/HCPCS: 36415; 80053; 85027; 86593; 86780; C9803-CS; Q0162; U0003; U0005

== ENCOUNTER 2023-04-27 19:20 | Inpatient (IN) | payer OTHER ==
[2023-04-27 20:11] VITALS: BMI 33.9
[2023-04-27] MEDS ORDERED: ONDANSETRON *ODT* 4 MG TABLET SL PRN (22:57)
[2023-04-27] MEDS ORDERED: MAG HYDROX/AL HYDROX/SIMETH 30 ML UNIT-DOSE CUP PO PRN (22:57)
[2023-04-27] MEDS ORDERED: BENZOCAINE/MENTHOL (CHLORASEPTIC ) LOZENGE MM PRN (22:57)
[2023-04-27] MEDS ORDERED: IBUPROFEN 400 MG TABLET (FP) PO PRN (22:57)
[2023-04-27] MEDS ORDERED: DICYCLOMINE HCL 10 MG CAPSULE PO PRN (22:57)
[2023-04-27] MEDS ORDERED: NICOTINE 10 MG CARTRIDGE (INHALER) IH PRN (22:57)
[2023-04-27] MEDS ORDERED: METHOCARBAMOL 500 MG TABLET PO PRN (22:57)
[2023-04-27] MEDS ORDERED: NALOXONE HCL (KLOXXADO) 8 MG SPRAY NS PRN (22:57)
[2023-04-27] MEDS ORDERED: ACETAMINOPHEN 325 MG TABLET (FP) PO PRN (22:57)
[2023-04-27] MEDS ORDERED: POLYETHYLENE GLYCOL (HEALTHYLAX) 3350 17 GM PACKET PO PRN (22:57)
[2023-04-27] MEDS ORDERED: MAGNESIUM HYDROX 2400MG/30ML ORAL SUSPENSION 30 ML CUP PO PRN (22:57)
[2023-04-27] MEDS ORDERED: IBUPROFEN 600 MG TABLET (FP) PO PRN (22:57)
[2023-04-27] MEDS ORDERED: guaiFENesin 600 MG TABLET.ER (FP) PO PRN (22:57)
[2023-04-27] MEDS ORDERED: BISMUTH SUBSALICYLATE 524 MG/30 ML PO PRN (22:57)
[2023-04-27] MEDS ORDERED: BENZONATATE 200 MG CAPSULE PO PRN (22:57)
[2023-04-27] MEDS ORDERED: NALOXONE HCL 0.4 MG/ML VIAL IM PRN (22:57)
[2023-04-27] MEDS ORDERED: LOPERAMIDE HCL 2 MG CAPSULE PO PRN (22:57)
[2023-04-28] MEDS ORDERED: NICOTINE 14 MG/24 HOURS TOPICAL PATCH TD SCH (10:00)
[2023-04-28] MEDS ORDERED: methaDONE HCL 40 MG DISPERSABLE TABLET PO SCH (10:15)
[2023-04-28] MEDS: methaDONE 80 MG, methaDONE 10 MG PO SCH (10:30)
[2023-04-28] MEDS: PRENATAL VITAMINS W/ FOLIC ACID TABLET (FP) PO SCH (10:31)
[2023-04-28] MEDS: NICOTINE 21 MG/24 HOURS TOPICAL PATCH TD SCH (10:35)
[2023-04-28 10:50] LABS: POTASSIUM 3.9 mmol/L (3.5-5.1)
[2023-04-28 10:52] LABS: ALBUMIN 2.9 g/dl (3.4-5.0); BLOOD UREA NITROGEN 18.1 mg/dL (7-18); CALCIUM 8.9 mg/dL (8.5-10.1)
[2023-04-28 10:55] LABS: CREATININE 0.9 mg/dL (0.55-1.3)
[2023-04-28 10:57] LABS: BILIRUBIN,TOTAL 0.2 mg/dL (0.2-1); TOT PROT 6.1 g/dl (6.4-8.2)
[2023-04-28 11:10] LABS: HEMATOCRIT 32.8 % (35.4-49); HEMOGLOBIN 10.7 GM/dL (11.7-16.9); MCH 27.2 pg (25.7-33.7); MCHC 32.7 g/dl (32.0-35.9); MEAN CELL VOLUME 83.2 fl (80-96); MEAN PLT VOLUME 7.9 fl (7.5-11.1); PLATELET COUNT 211 10^3/uL (134-434); RBC 3.94 M/mm3 (4.00-5.60); RDW 15.2 % (11.9-15.9)
[2023-04-28] MEDS ORDERED: diazePAM 5 MG TABLET PO PRN (12:31)
[2023-04-28] MEDS: HYDROCHLOROTHIAZIDE 12.5 MG CAPSULE (FP) PO SCH (14:55)
[2023-04-28] MEDS: amLODIPine BESYLATE 5 MG TABLET (FP) PO SCH (14:55)
[2023-04-28] MEDS: diazePAM 5 MG TABLET PO SCH ×2 (17:43→22:40)
[2023-04-28] MEDS: MELATONIN 5 MG TABLETS PO SCH (22:39)
[2023-04-28] MEDS: THIAMINE HCL 100 MG TABLET (FP) PO SCH (22:40)
[2023-04-29] MEDS: methaDONE 80 MG, methaDONE 10 MG PO SCH (05:49)
[2023-04-29] MEDS: diazePAM 5 MG TABLET PO SCH ×4 (05:49→22:25)
[2023-04-29 10:26] LABS: TOTAL IRON BINDING CAPACITY 293 ug/dL (250-450)
[2023-04-29] MEDS: HYDROCHLOROTHIAZIDE 12.5 MG CAPSULE (FP) PO SCH (10:38)
[2023-04-29] MEDS: PRENATAL VITAMINS W/ FOLIC ACID TABLET (FP) PO SCH (10:38)
[2023-04-29] MEDS: NICOTINE 21 MG/24 HOURS TOPICAL PATCH TD SCH (10:38)
[2023-04-29] MEDS: amLODIPine BESYLATE 5 MG TABLET (FP) PO SCH (10:38)
[2023-04-29] MEDS: cloNIDine HCL 0.1 MG TABLET PO PRN (10:40)
[2023-04-29 11:15] LABS: IRON SERUM 38 ug/dL (50-175)
[2023-04-29] MEDS: FERROUS SO4 325 MG TABLET (FP) PO SCH ×2 (14:51→22:25)
[2023-04-29] MEDS: DOCUSATE SODIUM 100 MG CAPSULE (FP) PO SCH (22:25)
[2023-04-29] MEDS: MELATONIN 5 MG TABLETS PO SCH (22:25)
[2023-04-29] MEDS: THIAMINE HCL 100 MG TABLET (FP) PO SCH (22:25)
[2023-04-30] MEDS: diazePAM 5 MG TABLET PO SCH ×3 (06:32→22:04)
[2023-04-30] MEDS: methaDONE 80 MG, methaDONE 10 MG PO SCH (07:13)
[2023-04-30] MEDS: cloNIDine HCL 0.1 MG TABLET PO PRN (07:20)
[2023-04-30] MEDS: HYDROCHLOROTHIAZIDE 12.5 MG CAPSULE (FP) PO SCH (10:42)
[2023-04-30] MEDS: NICOTINE 21 MG/24 HOURS TOPICAL PATCH TD SCH (10:42)
[2023-04-30] MEDS: FERROUS SO4 325 MG TABLET (FP) PO SCH ×2 (10:42→22:07)
[2023-04-30] MEDS: amLODIPine BESYLATE 5 MG TABLET (FP) PO SCH (10:43)
[2023-04-30] MEDS: PRENATAL VITAMINS W/ FOLIC ACID TABLET (FP) PO SCH (10:43)
[2023-04-30] MEDS: DOCUSATE SODIUM 100 MG CAPSULE (FP) PO SCH (22:03)
[2023-04-30] MEDS: MELATONIN 5 MG TABLETS PO SCH (22:04)
[2023-04-30] MEDS: THIAMINE HCL 100 MG TABLET (FP) PO SCH (22:07)
[2023-05-01] MEDS ORDERED: diazePAM 5 MG TABLET PO SCH (06:00)
[2023-05-01 06:16] VITALS: BP 125/65; PULSE 68; RESP 17; TEMP 97.7
[2023-05-01] MEDS: methaDONE 80 MG, methaDONE 10 MG PO SCH (06:27)
[2023-05-02] MEDS ORDERED: diazePAM 5 MG TABLET PO ONE (06:00)
== END 2023-05-01 08:28 | disposition home or self-care (01) | DRG 897 ==
LOC: YASAS 19:20 → Y3N 23:06
PROVIDERS: ADMIT Allergy & Immunology; ATTEND Surgery
PROC: HZ2ZZZZ Detoxification Services for Substance Abuse Treatment (ICD-10-PCS; principal; 2023-04-27)
DX: F13.230 Sedative, hypnotic or anxiolytic dependence with withdrawal, uncomplicated (principal); F11.20 Opioid dependence, uncomplicated; F14.20 Cocaine dependence, uncomplicated; F17.210 Nicotine dependence, cigarettes, uncomplicated; D50.9 Iron deficiency anemia, unspecified; E78.5 Hyperlipidemia, unspecified; I10 Essential (primary) hypertension; N40.0 Benign prostatic hyperplasia without lower urinary tract symptoms; Z86.19 Personal history of other infectious and parasitic diseases
CPT/HCPCS: 36415; 80053; 83540; 83550; 85027; 86593; 86780; 87635; 87811

== ENCOUNTER 2023-09-21 09:42 | Inpatient (IN) | payer OTHER ==
[2023-09-21 11:10] VITALS: BMI 33.6
[2023-09-21] MEDS ORDERED: ONDANSETRON *ODT* 4 MG TABLET SL PRN (11:23)
[2023-09-21] MEDS ORDERED: IBUPROFEN 400 MG TABLET (FP) PO PRN (11:23)
[2023-09-21] MEDS ORDERED: MAG HYDROX/AL HYDROX/SIMETH 30 ML UNIT-DOSE CUP PO PRN (11:23)
[2023-09-21] MEDS ORDERED: BISMUTH SUBSALICYLATE 262 MG/15 ML BTL PO PRN (11:23)
[2023-09-21] MEDS ORDERED: IBUPROFEN 600 MG TABLET (FP) PO PRN (11:23)
[2023-09-21] MEDS ORDERED: NALOXONE HCL 0.4 MG/ML VIAL IM PRN (11:23)
[2023-09-21] MEDS ORDERED: BENZONATATE 200 MG CAPSULE PO PRN (11:23)
[2023-09-21] MEDS ORDERED: POLYETHYLENE GLYCOL (HEALTHYLAX) 3350 17 GM PACKET PO PRN (11:23)
[2023-09-21] MEDS ORDERED: ACETAMINOPHEN 325 MG TABLET (FP) PO PRN (11:23)
[2023-09-21] MEDS ORDERED: BENZOCAINE/MENTHOL (CHLORASEPTIC ) LOZENGE MM PRN (11:23)
[2023-09-21] MEDS ORDERED: LOPERAMIDE HCL 2 MG CAPSULE PO PRN (11:23)
[2023-09-21] MEDS ORDERED: MAGNESIUM HYDROX 2400MG/30ML ORAL SUSPENSION 30 ML CUP PO PRN (11:23)
[2023-09-21] MEDS ORDERED: guaiFENesin 600 MG TABLET.ER (FP) PO PRN (11:23)
[2023-09-21] MEDS ORDERED: NALOXONE HCL (KLOXXADO) 8 MG SPRAY NS PRN (11:23)
[2023-09-21] MEDS ORDERED: DICYCLOMINE HCL 10 MG CAPSULE PO PRN (11:23)
[2023-09-21] MEDS ORDERED: [UNRECOGNIZED DRUG - OTHER] PO PRN (11:26)
[2023-09-21] MEDS ORDERED: MELOXICAM SUBMICRONIZED PO PRN (11:26)
[2023-09-21] MEDS ORDERED: diazePAM 5 MG TABLET ONE (11:35)
[2023-09-21] MEDS: diazePAM 5 MG TABLET PO SCH ×3 (11:39→23:01)
[2023-09-21] MEDS: METHOCARBAMOL 500 MG TABLET PO PRN (23:01)
[2023-09-21] MEDS: MELATONIN 5 MG TABLETS PO SCH (23:01)
[2023-09-21] MEDS: THIAMINE HCL 100 MG TABLET (FP) PO SCH (23:01)
[2023-09-22] MEDS: diazePAM 5 MG TABLET PO SCH ×4 (05:55→22:17)
[2023-09-22] MEDS ORDERED: methaDONE 80 MG, methaDONE 20 MG PO SCH ×2 (06:00)
[2023-09-22] MEDS ORDERED: methaDONE HCL 10 MG TABLET PO SCH (06:00)
[2023-09-22] MEDS: diazePAM 5 MG TABLET PO PRN (07:46)
[2023-09-22] MEDS: methaDONE 80 MG, methaDONE 20 MG PO SCH (08:24)
[2023-09-22] MEDS: PRENATAL VITAMINS W/ FOLIC ACID TABLET (FP) PO SCH (10:40)
[2023-09-22] MEDS: amLODIPine BESYLATE 5 MG TABLET (FP) PO SCH (10:40)
[2023-09-22] MEDS: hydrOXYzine PAMOATE 25 MG CAPSULE (FP) PO PRN (10:40)
[2023-09-22] MEDS: NICOTINE 14 MG/24 HOURS TOPICAL PATCH TD SCH (10:41)
[2023-09-22 15:57] LABS: POTASSIUM 4.2 mmol/L (3.5-5.1)
[2023-09-22 16:00] LABS: ALBUMIN 3.4 g/dl (3.4-5.0)
[2023-09-22 16:02] LABS: BLOOD UREA NITROGEN 12.3 mg/dL (7-18)
[2023-09-22 16:03] LABS: CREATININE 0.9 mg/dL (0.55-1.3)
[2023-09-22 16:04] LABS: BILIRUBIN,TOTAL 0.3 mg/dL (0.2-1)
[2023-09-22 16:06] LABS: HEMATOCRIT 39.7 % (35.4-49); HEMOGLOBIN 12.5 GM/dL (11.7-16.9); MCH 26.8 pg (25.7-33.7); MCHC 31.6 g/dl (32.0-35.9); MEAN CELL VOLUME 84.7 fl (80-96); MEAN PLT VOLUME 7.7 fl (7.5-11.1); PLATELET COUNT 230 10^3/uL (134-434); RBC 4.69 M/mm3 (4.00-5.60); RDW 15.1 % (11.9-15.9); WHITE BLOOD COUNT 3.2 K/mm3 (4.0-10.0)
[2023-09-22] MEDS: THIAMINE HCL 100 MG TABLET (FP) PO SCH (22:17)
[2023-09-22] MEDS: MELATONIN 5 MG TABLETS PO SCH (22:17)
[2023-09-23] MEDS: hydrOXYzine PAMOATE 25 MG CAPSULE (FP) PO PRN (04:30)
[2023-09-23] MEDS: diazePAM 5 MG TABLET PO SCH ×2 (06:11→13:46)
[2023-09-23] MEDS: diazePAM 5 MG TABLET PO PRN (06:26)
[2023-09-23] MEDS: methaDONE 80 MG, methaDONE 20 MG PO SCH (08:05)
[2023-09-23 09:18] VITALS: TEMP 98.3
[2023-09-23] MEDS: amLODIPine BESYLATE 5 MG TABLET (FP) PO SCH (10:35)
[2023-09-23] MEDS: METHOCARBAMOL 500 MG TABLET PO PRN (10:35)
[2023-09-23] MEDS: PRENATAL VITAMINS W/ FOLIC ACID TABLET (FP) PO SCH (10:35)
[2023-09-23] MEDS: NICOTINE 14 MG/24 HOURS TOPICAL PATCH TD SCH (10:36)
[2023-09-23 14:02] VITALS: BP 135/83; PULSE 73; RESP 18
[2023-09-24] MEDS ORDERED: diazePAM 5 MG TABLET PO SCH (06:00)
[2023-09-25] MEDS ORDERED: diazePAM 5 MG TABLET PO ONE (06:00)
== END 2023-09-23 16:33 | disposition left against medical advice (07) | DRG 894 ==
LOC: YASAS 09:42 → Y6N 11:52
PROVIDERS: ADMIT Allergy & Immunology; ATTEND Surgery
PROC: HZ2ZZZZ Detoxification Services for Substance Abuse Treatment (ICD-10-PCS; principal; 2023-09-21)
DX: F10.230 Alcohol dependence with withdrawal, uncomplicated (principal); F11.20 Opioid dependence, uncomplicated; F14.20 Cocaine dependence, uncomplicated; F17.210 Nicotine dependence, cigarettes, uncomplicated; E78.00 Pure hypercholesterolemia, unspecified; M54.50 Low back pain, unspecified; G89.29 Other chronic pain; N40.0 Benign prostatic hyperplasia without lower urinary tract symptoms; Z86.19 Personal history of other infectious and parasitic diseases
CPT/HCPCS: 36415; 80053; 80307; 85027; 86593; 86780; 87635; 87811

== ENCOUNTER 2024-10-18 08:31 | Inpatient (IN) | payer OTHER ==
[2024-10-18 09:33] VITALS: BMI 30.1
[2024-10-18] MEDS ORDERED: IBUPROFEN 400 MG TABLET (FP) PO PRN (10:25)
[2024-10-18] MEDS ORDERED: BENZONATATE 200 MG CAPSULE PO PRN (10:25)
[2024-10-18] MEDS ORDERED: IBUPROFEN 600 MG TABLET (FP) PO PRN (10:25)
[2024-10-18] MEDS ORDERED: MAGNESIUM HYDROX 2400MG/30ML ORAL SUSPENSION 30 ML CUP PO PRN (10:25)
[2024-10-18] MEDS ORDERED: LOPERAMIDE HCL 2 MG CAPSULE PO PRN (10:25)
[2024-10-18] MEDS ORDERED: BISMUTH SUBSALICYLATE 524 MG/30 ML PO PRN (10:25)
[2024-10-18] MEDS ORDERED: AMMONIUM LACTATE 12% LOTION 225 GM BOTTLE TP PRN (10:25)
[2024-10-18] MEDS ORDERED: DICYCLOMINE HCL 10 MG CAPSULE PO PRN (10:25)
[2024-10-18] MEDS ORDERED: MAG HYDROX/AL HYDROX/SIMETH 30 ML UNIT-DOSE CUP PO PRN (10:25)
[2024-10-18] MEDS ORDERED: NALOXONE (NARCAN) HCL 4 MG/0.1 ML SPRAY NS PRN (10:25)
[2024-10-18] MEDS ORDERED: NICOTINE POLACRILEX 4 MG GUM BUC PRN (10:25)
[2024-10-18] MEDS ORDERED: BENZOCAINE/MENTHOL (CHLORASEPTIC ) LOZENGE MM PRN (10:25)
[2024-10-18] MEDS ORDERED: METHOCARBAMOL 500 MG TABLET PO PRN (10:25)
[2024-10-18] MEDS ORDERED: ACETAMINOPHEN 325 MG TABLET (FP) PO PRN (10:25)
[2024-10-18] MEDS ORDERED: guaiFENesin 600 MG TABLET.ER (FP) PO PRN (10:25)
[2024-10-18] MEDS: chlordiazePOXIDE HCL 25 MG CAPSULE PO SCH (17:57)
[2024-10-19] MEDS: MELATONIN 5 MG TABLETS PO SCH (00:17)
[2024-10-19] MEDS: THIAMINE 100 MG TABLET PO SCH (00:17)
[2024-10-19] MEDS: chlordiazePOXIDE HCL 25 MG CAPSULE PO PRN (07:01)
[2024-10-19] MEDS: methaDONE HCL 10 MG TABLET (FOR DETOX USE ONLY) PO ONE (08:46)
[2024-10-19] MEDS ORDERED: methaDONE HCL 40 MG DISPERSABLE TABLET PO SCH ×2 (09:15→10:00)
[2024-10-19] MEDS: methaDONE HCL 10 MG TABLET PO SCH (09:21)
[2024-10-19] MEDS: methaDONE 80 MG, methaDONE 10 MG PO SCH (09:47)
[2024-10-19] MEDS: PRENATAL VITAMINS W/ FOLIC ACID TABLET (FP) PO SCH (10:31)
[2024-10-19] MEDS: POLYETHYLENE GLYCOL (HEALTHYLAX) 3350 17 GM PACKET PO PRN (12:52)
[2024-10-20] MEDS: chlordiazePOXIDE HCL 25 MG CAPSULE PO SCH (05:32)
[2024-10-20] MEDS: ONDANSETRON *ODT* 4 MG TABLET SL PRN (05:33)
[2024-10-20 09:32] VITALS: BP 130/75; PULSE 78; RESP 19; TEMP 98.4
[2024-10-20 11:10] LABS: HEMATOCRIT 36.7 % (35.4-49); HEMOGLOBIN 11.6 GM/dL (11.7-16.9); MCH 26.9 pg (25.7-33.7); MCHC 31.7 g/dl (32.0-35.9); MEAN PLT VOLUME 7.8 fl (7.5-11.1); PLATELET COUNT 209 10^3/uL (134-434); RBC 4.31 M/mm3 (4.00-5.60); RDW 15.5 % (11.9-15.9); WHITE BLOOD COUNT 2.7 K/mm3 (4.0-10.0)
[2024-10-20 11:12] LABS: POTASSIUM 3.8 mmol/L (3.5-5.1)
[2024-10-20 11:18] LABS: CALCIUM 9.1 mg/dL (8.5-10.1)
[2024-10-20 11:19] LABS: BLOOD UREA NITROGEN 16.4 mg/dL (7-18)
[2024-10-20 11:21] LABS: CREATININE 0.8 mg/dL (0.55-1.3)
[2024-10-20 11:23] LABS: BILIRUBIN,TOTAL 0.1 mg/dL (0.2-1); TOT PROT 6.1 g/dl (6.4-8.2)
[2024-10-21] MEDS ORDERED: chlordiazePOXIDE HCL 10 MG CAPSULE PO PRN
[2024-10-21] MEDS ORDERED: chlordiazePOXIDE HCL 10 MG CAPSULE PO SCH (05:00)
[2024-10-22] MEDS ORDERED: chlordiazePOXIDE HCL 10 MG CAPSULE PO SCH (05:00)
[2024-10-23] MEDS ORDERED: chlordiazePOXIDE HCL 10 MG CAPSULE PO ONE (05:00)
== END 2024-10-20 11:02 | disposition left against medical advice (07) | DRG 894 ==
LOC: YASAS 08:31 → Y3N 10:56
PROVIDERS: ADMIT Neuromusculoskeletal Medicine & OMM; ATTEND Surgery
PROC: HZ2ZZZZ Detoxification Services for Substance Abuse Treatment (ICD-10-PCS; principal; 2024-10-18)
DX: F11.23 Opioid dependence with withdrawal (principal); F13.20 Sedative, hypnotic or anxiolytic dependence, uncomplicated; F10.230 Alcohol dependence with withdrawal, uncomplicated; F12.20 Cannabis dependence, uncomplicated; F17.210 Nicotine dependence, cigarettes, uncomplicated; E78.5 Hyperlipidemia, unspecified; I10 Essential (primary) hypertension; M17.11 Unilateral primary osteoarthritis, right knee; M54.50 Low back pain, unspecified; G89.29 Other chronic pain; N40.0 Benign prostatic hyperplasia without lower urinary tract symptoms; Z86.19 Personal history of other infectious and parasitic diseases
CPT/HCPCS: 36415; 80053; 80305; 80307; 85027; 86593; 86780; 93005; 93010; Q0162

== ENCOUNTER 2025-01-30 09:30 | Inpatient (IN) | payer OTHER ==
[2025-01-30 10:03] VITALS: BMI 31.4
[2025-01-30] MEDS ORDERED: POLYETHYLENE GLYCOL (HEALTHYLAX) 3350 17 GM PACKET PO PRN (11:18)
[2025-01-30] MEDS ORDERED: IBUPROFEN 400 MG TABLET (FP) PO PRN (11:18)
[2025-01-30] MEDS ORDERED: LOPERAMIDE HCL 2 MG CAPSULE PO PRN (11:18)
[2025-01-30] MEDS ORDERED: BENZONATATE 200 MG CAPSULE PO PRN (11:18)
[2025-01-30] MEDS ORDERED: IBUPROFEN 600 MG TABLET (FP) PO PRN (11:18)
[2025-01-30] MEDS ORDERED: BISMUTH SUBSALICYLATE 262 MG/15 ML BTL PO PRN (11:18)
[2025-01-30] MEDS ORDERED: DICYCLOMINE HCL 10 MG CAPSULE PO PRN (11:18)
[2025-01-30] MEDS ORDERED: MAG HYDROX/AL HYDROX/SIMETH 30 ML UNIT-DOSE CUP PO PRN (11:18)
[2025-01-30] MEDS ORDERED: BENZOCAINE/MENTHOL (CHLORASEPTIC ) LOZENGE MM PRN (11:18)
[2025-01-30] MEDS ORDERED: guaiFENesin 600 MG TABLET.ER (FP) PO PRN (11:18)
[2025-01-30] MEDS ORDERED: NALOXONE (NARCAN) HCL 4 MG/0.1 ML SPRAY NS PRN (11:18)
[2025-01-30] MEDS ORDERED: ACETAMINOPHEN 325 MG TABLET (FP) PO PRN (11:18)
[2025-01-30] MEDS ORDERED: ONDANSETRON *ODT* 4 MG TABLET SL PRN (11:18)
[2025-01-30] MEDS ORDERED: hydrOXYzine PAMOATE 25 MG CAPSULE (FP) PO PRN (11:18)
[2025-01-30] MEDS ORDERED: MAGNESIUM HYDROX 2400MG/30ML ORAL SUSPENSION 30 ML CUP PO PRN (11:18)
[2025-01-30] MEDS ORDERED: amLODIPine BESYLATE 5 MG TABLET (FP) ONE (12:09)
[2025-01-30] MEDS: amLODIPine BESYLATE 10 MG TABLET (FP) PO SCH (12:11)
[2025-01-30] MEDS: cloNIDine HCL 0.1 MG TABLET PO SCH (13:35)
[2025-01-30] MEDS: METHOCARBAMOL 500 MG TABLET PO PRN (21:17)
[2025-01-30] MEDS: MELATONIN 5 MG TABLETS PO SCH (21:17)
[2025-01-30] MEDS: THIAMINE 100 MG TABLET PO SCH (21:17)
[2025-01-31] MEDS: PRENATAL VITAMINS W/ FOLIC ACID TABLET (FP) PO SCH (09:33)
[2025-01-31] MEDS: methaDONE 80 MG, methaDONE 10 MG PO ONE (09:37)
[2025-01-31 13:01] VITALS: RESP 16
[2025-01-31 17:29] VITALS: BP 116/66; PULSE 63; TEMP 97.7
[2025-02-01] MEDS ORDERED: cloNIDine HCL 0.1 MG TABLET PO PRN
[2025-02-01] MEDS ORDERED: methaDONE HCL 10 MG TABLET PO ONE (10:00)
[2025-02-02] MEDS ORDERED: methaDONE 80 MG, methaDONE 20 MG PO ONE (10:00)
[2025-02-02] MEDS ORDERED: methaDONE HCL 10 MG TABLET PO ONE ×2 (10:00)
[2025-02-03] MEDS ORDERED: methaDONE HCL 10 MG TABLET PO ONE (10:00)
[2025-02-04] MEDS ORDERED: methaDONE HCL 10 MG TABLET PO ONE ×2 (10:00)
[2025-02-05] MEDS ORDERED: methaDONE HCL 10 MG TABLET PO ONE (10:00)
== END 2025-01-31 05:00 | disposition home or self-care (01) | DRG 897 ==
LOC: YASAS 09:30 → Y6N 12:09
PROVIDERS: ADMIT Allergy & Immunology; ATTEND Allergy & Immunology
PROC: HZ2ZZZZ Detoxification Services for Substance Abuse Treatment (ICD-10-PCS; principal; 2025-01-30)
DX: F10.230 Alcohol dependence with withdrawal, uncomplicated (principal); F11.20 Opioid dependence, uncomplicated; F14.20 Cocaine dependence, uncomplicated; F17.210 Nicotine dependence, cigarettes, uncomplicated; E78.5 Hyperlipidemia, unspecified; I10 Essential (primary) hypertension; M17.11 Unilateral primary osteoarthritis, right knee; M54.50 Low back pain, unspecified; G89.29 Other chronic pain; N40.0 Benign prostatic hyperplasia without lower urinary tract symptoms
CPT/HCPCS: 36415; 80305; 80307; 93005; 93010